=== PATIENT | female | born 1960 | race Caucasian/White ===

== ENCOUNTER 2016-09-13 13:09 | Day surgery (SDC) | payer OTHER ==
[2016-09-13] MEDS ORDERED: LACTATED RINGERS 1,000 ML IV SCH (13:50)
[2016-09-13 13:53] VITALS: RESP 16; TEMP 98
[2016-09-13] MEDS ORDERED: LIDOCAINE 1% 20 ML VIAL (10MG/ML) FOR IV START SQ ONE (14:00)
[2016-09-13] MEDS ORDERED: PROPOFOL 10 MG/ML 20 ML VIAL IV ONE (14:49)
[2016-09-13] MEDS ORDERED: GLYCOPYRROLATE 0.2 MG/ML 2 ML VIAL ONE (14:49)
--- NOTE | 2016-09-13 15:32 | P.PCN ---
Date of Procedure: 09/13/16 Preoperative Diagnosis: Postoperative Diagnosis: Procedure(s) Performed: Procedures: 1. Esophagogastroduodenoscopy and biopsy. 2. Colonoscopy and biopsy. Preoperative diagnosis: Dyspepsia and change in bowel habits. Postoperative diagnosis: 1. Small sliding hiatal hernia with no obvious esophagitis or complicated reflux disease. 2. Mild antral gastritis. 3. Normal colon and terminal ileum. 4. Multiple biopsies obtained from the duodenum, antrum, esophagus, terminal ileum and right colon. Preparation: HalfLytely prep. Sedation: Was provided by anesthesia. Brief clinical history: The patient is a 55-year-old female who was evaluated last month for symptoms of pain, diarrhea and bloating that has recurred around 6 months prior. The patient was first seen in September 2014 for abdominal pain, bloating and diarrhea and had some improvement with BRAT diet. She had an ultrasound and CT of the abdomen and had colonoscopy 2 years prior to that 2015 evaluation and had negative serology studies. This evaluation is to rule out peptic ulcer disease, complicated reflux disease, inflammatory bowel disease or neoplasia. Procedure: With the patient on her left lateral decubitus position and after informed consent and adequate sedation, I passed the Olympus-GIF 160 video upper endoscope through the cricopharyngeus down the esophagus. There was a very small sliding hiatal hernia. The esophagus did not show any erosions, ulcers, strictures or Hernández's esophagus. The endoscope was then passed into the stomach which was insufflated with air and inspected in detail including the retroflex view in the cardia. There was some mottling and erythema in the antrum but no ulcers or erosions. Pyloric channel, duodenal bulb, post bulbar area and descending duodenum appeared within normal limits I obtained biopsies from the duodenum, antrum and esophagus then the endoscope was withdrawn and I proceeded with the colonoscopy. Perianal area did not show any fissures or fistulas. There were no masses felt on digital rectal examination. The Olympus CFQ 160L video colonoscope was then inserted in the rectum in the usual fashion and advanced to the cecum. I intubated the ileocecal valve and examined the terminal ileum. Terminal ileum and colon appeared healthy. No polyps or tumors were seen or any obvious diverticular disease. I obtained biopsies from the terminal ileum and right colon than I retroflexed endoscope in the rectum before the endoscope was withdrawn. The patient tolerated the procedure well. Plan: The patient was reassured. Will await pathology results and make further plans accordingly. I would keep you updated on her progress. Implants: Indications for Procedure: Operative Findings: Description of Procedure:
[2016-09-13 15:54] VITALS: BP 141/80; PULSE 63
== END 2016-09-13 16:28 | disposition home or self-care (01) ==
LOC: ORWHC2ENDO 13:09
DX: K29.50 Unspecified chronic gastritis without bleeding (principal); K44.9 Diaphragmatic hernia without obstruction or gangrene; R19.4 Change in bowel habit; K58.9 Irritable bowel syndrome, unspecified; E07.9 Disorder of thyroid, unspecified; K21.9 Gastro-esophageal reflux disease without esophagitis; Z79.899 Other long term (current) drug therapy; Z88.2 Allergy status to sulfonamides; Z91.040 Latex allergy status
CPT/HCPCS: 88305; 88342; 45380; 43239; J2704

== ENCOUNTER → 2017-09-20 | Outpatient (CLI) | payer OTHER ==
--- NOTE | 2017-09-21 09:50 | MM ---
Reason for exam: screening (asymptomatic). Last mammogram was performed 2 years and 4 months ago. History: Patient is postmenopausal and is nulliparous. Family history of breast cancer in sister at age 30. Benign MG stereo VAD BX RT of the right breast, June 09, 2015. Physical Findings: A clinical breast exam by your physician is recommended on an annual basis and results should be correlated with mammographic findings. MG Screening Mammo w CAD Bilateral CC and MLO view(s) were taken. Prior study comparison: June 02, 2015, right breast MG 3d work up w/cad RT. May 26, 2015, bilateral MG screening mammo w CAD. The breast tissue is heterogeneously dense. This may lower the sensitivity of mammography. There are benign appearing round oval stable circumscribed left breast masses back to 2016. There are benign appearing left breast calcifications. No suspicious abnormality. Right biopsy marker noted. No significant changes when compared with prior studies. ASSESSMENT: Benign, BI-RAD 2 RECOMMENDATION: Routine screening mammogram of both breasts in 1 year.
== END | disposition home or self-care (01) ==
LOC: RADMAMWWP 10:16
PROVIDERS: ATTEND Internal Medicine
DX: Z12.31 Encounter for screening mammogram for malignant neoplasm of breast (principal)
CPT/HCPCS: 77067

== ENCOUNTER 2024-08-08 06:46 | Emergency (ER) | payer OTHER ==
--- NOTE | 2024-08-08 07:29 | ED ---
General Adult HPI - General Chief complaint: Abdominal Pain Stated complaint: abd pain Time Seen by Provider: 08/08/24 06:53 Source: patient, RN notes reviewed Mode of arrival: ambulatory - History of Present Illness Initial comments: 63-year-old female presents to the emergency department for evaluation of lower abdominal pain. Patient states that this has been ongoing since April. She has been to urgent care multiple times for this. She does state that she had an ultrasound performed 1 to 2 months ago and revealed some kind of ovarian mass. She states that she has been unable to follow-up for this due to insurance issues. She states that her pain has worsened over the past 1 to 2 weeks. She does note some constipation. She also notes urinary urgency. She denies any fever, chills. Endorses nausea with eating which is caused her appetite to be diminished. She reports a prior cholecystectomy no other abdominal surgeries. - Related Data Home Medications Medication Instructions Recorded Confirmed Famotidine [Pepcid] 40 mg PO BID 09/13/16 09/13/16 Levothyroxine Sodium [Levoxyl] 100 mcg PO DAILY 09/13/16 09/13/16 Sertraline [Zoloft] 50 mg PO DAILY 09/13/16 09/13/16 Allergies Allergy/AdvReac Type Severity Reaction Status Date / Time latex Allergy Rash/Hives Verified 08/08/24 06:52 Sulfa (Sulfonamide Allergy Rash/Hives Verified 08/08/24 06:52 Antibiotics) Review of Systems ROS Statement: Those systems with pertinent positive or pertinent negative responses have been documented in the HPI. ROS Other: All systems not noted in ROS Statement are negative. Past Medical History Past Medical History: Thyroid Disorder Additional Past Medical History / Comment(s): IRRITABLE BOWEL SYNDROME History of Any Multi-Drug Resistant Organisms: None Reported Additional Past Surgical History / Comment(s): CARPAL TUNNEL SURGERY, gallbladder removal Past Anesthesia/Blood Transfusion Reactions: Postoperative Nausea & Vomiting (PONV) Smoking Status: Never smoker Past Alcohol Use History: None Reported Past Drug Use History: None Reported - Past Family History Father History Unknown: Yes Family Medical History: Diabetes Mellitus, Renal Disease General Exam Limitations: no limitations General appearance: alert, in no apparent distress Head exam: Present: atraumatic, normocephalic, normal inspection Eye exam: Present: normal appearance, PERRL, EOMI. Absent: scleral icterus, conjunctival injection, periorbital swelling ENT exam: Present: normal exam, mucous membranes moist Neck exam: Present: normal inspection. Absent: tenderness, meningismus, lymphadenopathy Respiratory exam: Present: normal lung sounds bilaterally. Absent: respiratory distress, wheezes, rales, rhonchi, stridor Cardiovascular Exam: Present: regular rate, normal rhythm, normal heart sounds. Absent: systolic murmur, diastolic murmur, rubs, gallop, clicks GI/Abdominal exam: Present: soft, tenderness (Right lower), normal bowel sounds. Absent: distended, guarding, rebound, rigid Extremities exam: Present: normal inspection, full ROM, normal capillary refill. Absent: tenderness, pedal edema, joint swelling, calf tenderness Back exam: Present: normal inspection Neurological exam: Present: alert, oriented X3 Psychiatric exam: Present: normal affect, normal mood Skin exam: Present: warm, dry, intact, normal color. Absent: rash Course Vital Signs 08/08/24 08/08/24 08/08/24 06:47 07:52 09:22 Temperature 97.7 F Pulse Rate 95 80 84 Respiratory 18 16 18 Rate Blood Pressure 169/84 173/82 156/70 O2 Sat by Pulse 99 98 98 Oximetry 08/08/24 10:34 Temperature 97.9 F Pulse Rate 80 Respiratory 16 Rate Blood Pressure 161/72 O2 Sat by Pulse 96 Oximetry Medical Decision Making - Medical Decision Making Was pt. sent in by a medical professional or institution (, PA, COSMETIC COUNSELOR, urgent care, hospital, or correction...) When possible be specific @ -No Did you speak to anyone other than the patient for history (EMS, parent, family, police, friend...)? What history was obtained from this source @ -No Did you review nursing and triage notes (agree or disagree)? Why? @ -I reviewed and agree with nursing and triage notes Were old charts reviewed (outside hosp., previous admission, EMS record, old EKG, old radiological studies, urgent care reports/EKG's, correction records)? Report findings @ -No old charts were reviewed Differential Diagnosis (chest pain, altered mental status, abdominal pain women, abdominal pain men, vaginal bleeding, weakness, fever, dyspnea, syncope, headache, dizziness, GI bleed, back pain, seizure, CVA, palpatations, mental health, musculoskeletal)? @ -Differential Abdominal Pain Women: Appendicitis, Cholecystitis, diverticulosis, ischemic bowel, pancreatitis, hepatitis, UTI, gastroenteritis, AAA, incarcerated hernia, bowel obstruction, constipation, inflammatory bowel, hepatitis, peptic ulcer disease, splenic infarction, perforated viscus, vulvitis, ovarian torsion, PID, kidney stone, placenta abruption, this is not meant to be an all-inclusive list EKG interpreted by me (3pts min.). @ -None X-rays interpreted by me (1pt min.). @ -None done CT interpreted by me (1pt min.). @ -CT abdomen pelvis revealsFindings suspicious for uterine/cervical malignancy with adenopathy, bilateral hydronephrosis greater on the right U/S interpreted by me (1pt. min.). @ -None done What testing was considered but not performed or refused? (CT, X-rays, U/S, labs)? Why? @ -None What meds were considered but not given or refused? Why? @ -None Did you discuss the management of the patient with other professionals (professionals i.e. , PA, COSMETIC COUNSELOR, lab, RT, psych nurse, addiction social worker, competency evaluated nurse aide, teacher, mobile patrol officer, case repairer)? Give summary @ -No Was smoking cessation discussed for >3mins.? @ -No Was critical care preformed (if so, how long)? @ -No Were there social determinants of health that impacted care today? How? (Homelessness, low income, unemployed, alcoholism, drug addiction, transportation, low edu. Level, literacy, decrease access to med. care, fpc, rehab)? @ -No Was there de-escalation of care discussed even if they declined (Discuss DNR or withdrawal of care, Hospice)? DNR status @ -No What co-morbidities impacted this encounter? (DM, HTN, Smoking, COPD, CAD, Cancer, CVA, ARF, Chemo, Hep., AIDS, mental health diagnosis, sleep apnea, morbid obesity)? @ -None Was patient admitted / discharged? Hospital course, mention meds given and route, prescriptions, significant lab abnormalities, going to OR and other pertinent info. @ -Discharge. Patient presents emergency department for evaluation of abdominal pain. Patient states that she has been dealing with this for multiple months.Laboratory studies were obtained here which show mild leukocytosis at 14, hemoglobin 11.7; hyponatremia with a sodium of 132, patient was provided IV hydration in the emergency department. UA shows no evidence of infectious process. CT of the abdomen pelvis shows findings suspicious for uterine/cervical malignancy with adenopathy, bilateral hydronephrosis greater on the right. Patient was provided fluids and Toradol in the emergency department. She does report significant improvement in her pain following this. She will be discharged home. Advised strict follow-up with her primary care provider, gynecology, and oncology. She is understanding agreeable with this plan. Patient stable at time of discharge. Case discussed with Dr. Bender. Undiagnosed new problem with uncertain prognosis? @ -No Drug Therapy requiring intensive monitoring for toxicity (Heparin, Nitro, Insulin, Cardizem)? @ -No Were any procedures done? @ -No Diagnosis/symptom? @ -Pelvic mass, abdominal pain Acute, or Chronic, or Acute on Chronic? @ -Acute Uncomplicated (without systemic symptoms) or Complicated (systemic symptoms)? @ -Uncomplicated Side effects of treatment? @ -No Exacerbation, Progression, or Severe Exacerbation? @ -No Poses a threat to life or bodily function? How? (Chest pain, USA, IA, pneumonia, PE, COPD, DKA, ARF, appy, cholecystitis, CVA, Diverticulitis, Homicidal, Suicidal, threat to staff... and all critical care pts) @ -No - Lab Data Result diagrams: 08/08/24 08:02 08/08/24 08:02 Lab Results 08/08/24 08/08/24 08/08/24 Range/Units 08:02 08:02 08:02 WBC 14.51 H (4.50-10.00) 10*3/uL RBC 4.09 L (4.10-5.20) 10*6/uL Hgb 11.7 L (12.0-15.0) g/dL Hct 34.4 L (37.2-46.3) % MCV 84.1 (80.0-97.0) fL MCH 28.6 (27.0-32.0) pg MCHC 34.0 (32.0-37.0) g/dL Plt Count 391 (140-440) 10*3/uL MPV 9.2 L (9.5-12.2) fL Immature Gran % (Auto) 1.3 % Neutrophils % 78.8 % Lymphocytes % 12.9 % Monocytes % 5.4 % Eosinophils % 1.0 % Basophils % 0.6 % Immature Gran # 0.19 H (0.00-0.04) 10*3/uL Neutrophils # 11.45 H (1.80-7.70) 10*3/uL Lymphocytes # 1.87 (0.90-5.00) 10*3/uL Monocytes # 0.78 (0.20-1.00) 10*3/uL Eosinophils # 0.14 (0.04-0.35) 10*3/uL Basophils # 0.08 (0.00-0.10) 10*3/uL Sodium 132 L (137-145) mmol/L Potassium 4.4 (3.5-5.1) mmol/L Chloride 100 (98-107) mmol/L Carbon Dioxide 23 (22-30) mmol/L Anion Gap 9 mmol/L BUN 28 H (7-17) mg/dL Creatinine 0.75 (0.52-1.04) mg/dL Est GFR (CKD-EPI)AfAm >90 (>60 ml/min/1.73 sqM) Est GFR (CKD-EPI)NonAf 86 (>60 ml/min/1.73 sqM) Glucose 107 H (74-99) mg/dL Plasma Lactic Acid Sal 0.9 (0.7-2.0) mmol/L Calcium 9.6 (8.4-10.2) mg/dL Total Bilirubin 0.7 (0.2-1.3) mg/dL AST 52 H (14-36) U/L ALT 28 (4-34) U/L Alkaline Phosphatase 149 H (38-126) U/L Total Protein 7.4 (6.3-8.2) g/dL Albumin 3.8 (3.5-5.0) g/dL Amylase 49 (30-110) U/L Lipase 206 (23-300) U/L TSH 4.140 (0.465-4.680) mIU/L Urine Color Urine Appearance (Clear) Urine pH (5.0-8.0) Ur Specific [place] (1.001-1.035) Urine Protein (Negative) Urine Glucose (UA) (Negative) Urine Ketones (Negative) Urine Blood (Negative) Urine Nitrite (Negative) Urine Bilirubin (Negative) Urine Urobilinogen (<2.0) mg/dL Ur Leukocyte Esterase (Negative) 08/08/24 Range/Units 08:07 WBC (4.50-10.00) 10*3/uL RBC (4.10-5.20) 10*6/uL Hgb (12.0-15.0) g/dL Hct (37.2-46.3) % MCV (80.0-97.0) fL MCH (27.0-32.0) pg MCHC (32.0-37.0) g/dL Plt Count (140-440) 10*3/uL MPV (9.5-12.2) fL Immature Gran % (Auto) % Neutrophils % % Lymphocytes % % Monocytes % % Eosinophils % % Basophils % % Immature Gran # (0.00-0.04) 10*3/uL Neutrophils # (1.80-7.70) 10*3/uL Lymphocytes # (0.90-5.00) 10*3/uL Monocytes # (0.20-1.00) 10*3/uL Eosinophils # (0.04-0.35) 10*3/uL Basophils # (0.00-0.10) 10*3/uL Sodium (137-145) mmol/L Potassium (3.5-5.1) mmol/L Chloride (98-107) mmol/L Carbon Dioxide (22-30) mmol/L Anion Gap mmol/L BUN (7-17) mg/dL Creatinine (0.52-1.04) mg/dL Est GFR (CKD-EPI)AfAm (>60 ml/min/1.73 sqM) Est GFR (CKD-EPI)NonAf (>60 ml/min/1.73 sqM) Glucose (74-99) mg/dL Plasma Lactic Acid Sal (0.7-2.0) mmol/L Calcium (8.4-10.2) mg/dL Total Bilirubin (0.2-1.3) mg/dL AST (14-36) U/L ALT (4-34) U/L Alkaline Phosphatase (38-126) U/L Total Protein (6.3-8.2) g/dL Albumin (3.5-5.0) g/dL Amylase (30-110) U/L Lipase (23-300) U/L TSH (0.465-4.680) mIU/L Urine Color Colorless Urine Appearance Clear (Clear) Urine pH 5.0 (5.0-8.0) Ur Specific [place] 1.006 (1.001-1.035) Urine Protein Negative (Negative) Urine Glucose (UA) Negative (Negative) Urine Ketones Negative (Negative) Urine Blood Negative (Negative) Urine Nitrite Negative (Negative) Urine Bilirubin Negative (Negative) Urine Urobilinogen <2.0 (<2.0) mg/dL Ur Leukocyte Esterase Negative (Negative) Disposition Clinical Impression: Mass of uterine adnexa, Abdominal pain Disposition: HOME SELF-CARE Condition: Stable Instructions (If sedation given, give patient instructions): Abdominal Pain (ED) Additional Instructions: Please [facility] and your primary care provider. Return to the emergency department for new or worsening symptoms. Is patient prescribed a controlled substance at d/c from ED?: No Referrals: Jennifer Navas MD [Primary Care Provider] - 1-2 days Chucho Pineda MD [STAFF PHYSICIAN] - 1-2 days Chuy Alfredo [STAFF PHYSICIAN] - 1-2 days
[2024-08-08] MEDS: SODIUM CHLORIDE 0.9% 1,000 ML IV ONE (08:04)
[2024-08-08] MEDS: KETOROLAC 15 MG/ML 1 ML VIAL IVP STA (08:05)
[2024-08-08 08:16] LABS: Basophils # (A) 0.08 10*3/uL (0.00-0.10); Basophils % (A) 0.6 %; Eosinophils # (A) 0.14 10*3/uL (0.04-0.35); HCT 34.4 % (37.2-46.3); HGB 11.7 g/dL (12.0-15.0); Lymphocytes # (A) 1.87 10*3/uL (0.90-5.00); Lymphocytes % (A) 12.9 %; MCH 28.6 pg (27.0-32.0); MCV 84.1 fL (80.0-97.0); Mean Platelet Volume 9.2 fL (9.5-12.2); Monocytes # (A) 0.78 10*3/uL (0.20-1.00); Monocytes % (A) 5.4 %; Neutrophils # (A) 11.45 10*3/uL (1.80-7.70); Neutrophils % (A) 78.8 %; Platelet Count 391 10*3/uL (140-440); RBC 4.09 10*6/uL (4.10-5.20); RDW 13.5 % (11.5-14.5); WBC 14.51 10*3/uL (4.50-10.00)
[2024-08-08 08:20] LABS: Appearance,Urine Clear (Clear); Bilirubin,Urine Negative (Negative); Blood,Urine Negative (Negative); Color,Urine Colorless; Glucose,Urine (UA) Negative (Negative); Ketones,Urine Negative (Negative); Leukocyte Esterase,Urine Negative (Negative); Nitrite,Urine Negative (Negative); Protein,Urine Negative (Negative); Specific Gravity,Urine 1.006 (1.001-1.035); Urobilinogen,Urine <2.0 mg/dL (<2.0)
[2024-08-08 08:25] LABS: ALT 28 U/L (4-34); African American GFR (CKD) >90 (>60 ml/min/1.73 sqM); Amylase 49 U/L (30-110); Anion Gap 9 mmol/L; Blood Urea Nitrogen 28 mg/dL (7-17); Calcium 9.6 mg/dL (8.4-10.2); Carbon Dioxide 23 mmol/L (22-30); Chloride 100 mmol/L (98-107); Glucose 107 mg/dL (74-99); Lipase 206 U/L (23-300); Non-African American GFR(CKD) 86 (>60 ml/min/1.73 sqM); Sodium 132 mmol/L (137-145); Total Bilirubin 0.7 mg/dL (0.2-1.3)
[2024-08-08 08:32] LABS: AST 52 U/L (14-36); Albumin 3.8 g/dL (3.5-5.0); Alkaline Phosphatase 149 U/L (38-126); Potassium 4.4 mmol/L (3.5-5.1); Total Protein 7.4 g/dL (6.3-8.2)
--- NOTE | 2024-08-08 08:43 | CT ---
EXAMINATION TYPE: CT abdomen pelvis w con DATE OF EXAM: 08/08/2024 8:32 AM COMPARISON: None. CLINICAL INDICATION: Female, 63 years old with history of abdominal pain, Abdominal pain, generalized since April TECHNIQUE:CT scan of the abdomen and pelvis is performed without Oral Contrast and with IV Contrast, patient injected with 100 ml mL of Isovue 300. CT DLP: 887.3 mGycm, Automated exposure control for dose reduction was used. FINDINGS: LUNG BASES-: left lower lobe pulmonary nodule measuring 1.2 cm. Metastatic disease is not excluded. C T of the chest recommended which can be performed on an outpatient basis. No infiltrate. LIVER/GB: The gallbladder is surgically absent. No space occupying hepatic lesion. Biliary tree is of normal caliber. PANCREAS: No inflammation. No distinct mass. SPLEEN: No splenic enlargement. No lesion seen. ADRENALS: No nodule. No thickening. KIDNEYS/BLADDER: There is bilateral hydronephrosis right greater than left felt to be secondary to pe lvic mass. No nephrolithiasis. No distinct renal mass. Urinary bladder grossly unremarkable. BOWEL: Normal appendix. Normal bowel caliber. No inflammation. GENITAL ORGANS: Enlarged and lobulated uterus with infiltrative type appearing mass suspicious for un derlying malignancy. Extension into the cervix. Poor visualization of the ovaries. LYMPH NODES: Left periaortic conglomerate adenopathy measuring 5.9 x 2.7 cm with additional adjacent enlarged lymph nodes seen. Bilateral iliac chain adenopathy measuring 2.7 cm on the left in 3.5 cm on the right. AORTA: No significant abnormality. OSSEOUS STRUCTURES: Multilevel severe degenerative disc disease. Grade 1 anterolisthesis L5 on S1. OTHER: No significant additional abnormality is seen. IMPRESSION: 1. Findings are suspicious for uterine/cervical malignancy with adenopathy as discussed as well as a pulmonary nodule at the left lung base. There is a bilateral hydronephrosis seen right greater than l eft mild in degree. [facility], , 08/08/2024 8:41 AM
[2024-08-08 10:34] VITALS: BP 161/72; PULSE 80; RESP 16; TEMP 97.9
== END 2024-08-08 10:40 | disposition home or self-care (01) ==
LOC: EC 06:46
DX: R22.9 Localized swelling, mass and lump, unspecified (principal); R10.31 Right lower quadrant pain; Z88.2 Allergy status to sulfonamides; Z91.040 Latex allergy status
CPT/HCPCS: 36415; 80053; 84443; 82150; 83605; 83690; 85025; 81003; 74177; 99284; 96374; 96361 ×2; J1885; Q9967

== ENCOUNTER 2024-08-15 12:31 | Emergency (ER) | payer OTHER ==
--- NOTE | 2024-08-15 14:22 | ED ---
Abdominal Pain HPI - General Chief Complaint: Abdominal Pain Stated Complaint: abd pain Time Seen by Provider: 08/15/24 14:20 Source: patient, RN notes reviewed, old records reviewed Mode of arrival: ambulatory Limitations: no limitations - History of Present Illness Initial Comments: 63-year-old female presenting to the ER for evaluation of abdominal pain. Patient states since April she has been having lower abdominal pain. Patient was seen here on 08 [address] abdomen pelvis completed showing findings suspicious of uterine/cervical malignancy with adenopathy. Patient was instructed to follow-up with oncology, [employer] and PCP outpatient. She states she is scheduled to see Dr. Pineda on 08/21/24. Patient has been taking [id number] ibuprofen without relief of pain. She is also been using a heating pad without relief of discomfort. She states the pain is a 7 out of 10 cramping discomfort it is worse with wearing pants and pressure like a seatbelt across her lower abdomen. Patient does admit to approximately 10 pound unintentional weight loss since April along with night sweats. She denies any fevers, nausea, vomiting. Patient seeking pain control. No new complaints from prior. - Related Data Home Medications Medication Instructions Recorded Confirmed Famotidine [Pepcid] 40 mg PO BID 09/13/16 09/13/16 Levothyroxine Sodium [Levoxyl] 100 mcg PO DAILY 09/13/16 09/13/16 Sertraline [Zoloft] 50 mg PO DAILY 09/13/16 09/13/16 Previous Rx's Medication Instructions Recorded HYDROcodone/APAP 5-325MG [[place] 5] 1 each PO Q6HR PRN #12 tab 08/15/24 Ketorolac [Toradol] 10 mg PO Q8HR #15 tab 08/15/24 Ondansetron Odt [Zofran Odt] 4 mg PO Q8HR PRN #10 tab 08/15/24 Allergies Allergy/AdvReac Type Severity Reaction Status Date / Time latex Allergy Rash/Hives Verified 08/15/24 12:41 Sulfa (Sulfonamide Allergy Rash/Hives Verified 08/15/24 12:41 Antibiotics) tramadol Allergy Rash/Hives Verified 08/15/24 12:41 Review of Systems ROS Statement: Those systems with pertinent positive or pertinent negative responses have been documented in the HPI. ROS Other: All systems not noted in ROS Statement are negative. Past Medical History Past Medical History: Thyroid Disorder Additional Past Medical History / Comment(s): IRRITABLE BOWEL SYNDROME History of Any Multi-Drug Resistant Organisms: None Reported Additional Past Surgical History / Comment(s): CARPAL TUNNEL SURGERY, gallbladder removal Past Anesthesia/Blood Transfusion Reactions: Postoperative Nausea & Vomiting (PONV) Past Psychological History: No Psychological Hx Reported Smoking Status: Never smoker Past Alcohol Use History: None Reported Past Drug Use History: None Reported - Past Family History Father History Unknown: Yes Family Medical History: Diabetes Mellitus, Renal Disease General Exam Limitations: no limitations General appearance: alert, in no apparent distress Respiratory exam: Present: normal lung sounds bilaterally. Absent: respiratory distress, wheezes, rales, rhonchi, stridor Cardiovascular Exam: Present: regular rate, normal rhythm, normal heart sounds. Absent: systolic murmur, diastolic murmur, rubs, gallop, clicks GI/Abdominal exam: Present: soft, tenderness (Lower abdomen), normal bowel sounds Neurological exam: Present: alert, oriented X3, CN II-XII intact Skin exam: Present: warm, dry, intact, normal color. Absent: rash Course Vital Signs 08/15/24 12:38 Temperature 97.8 F Pulse Rate 99 Respiratory 20 Rate Blood Pressure 148/84 O2 Sat by Pulse 99 Oximetry - Reevaluation(s) Reevaluation #1: 08/15/24 15:53 Patient reevaluated. No signs of acute distress. Patient reporting improvement of pain. Given CELESTINE, admission was offered to patient who refused stating she would like to be discharged as she has cats at home to care for. Medical Decision Making - Medical Decision Making Was pt. sent in by a medical professional or institution (, PA, ARTIFICIAL STONE SETTER, urgent care, hospital, or penitentiary...) When possible be specific @ -[No] Did you speak to anyone other than the patient for history (EMS, parent, family, police, friend...)? What history was obtained from this source @ -[No] Did you review nursing and triage notes (agree or disagree)? Why? @ -[I reviewed and agree with nursing and triage notes] Were old charts reviewed (outside hosp., previous admission, EMS record, old EKG, old radiological studies, urgent care reports/EKG's, penitentiary records)? Report findings @ -Yes, I reviewed ER visit, laboratory studies and CT abdomen pelvis from [address] findings concerning of uterine/cervical malignancy. Patient instructed to follow-up outpatient with oncology, [employer] and PCP. Differential Diagnosis (chest pain, altered mental status, abdominal pain women, abdominal pain men, vaginal bleeding, weakness, fever, dyspnea, syncope, headache, dizziness, GI bleed, back pain, seizure, CVA, palpatations, mental health, musculoskeletal)? @ -Differential Abdominal Pain Women:Appendicitis, Cholecystitis, diverticulosis, ischemic bowel, pancreatitis, hepatitis, UTI, gastroenteritis, AAA, incarcerated hernia, bowel obstruction, constipation, inflammatory bowel, hepatitis, peptic ulcer disease, splenic infarction, perforated viscus, vulvitis, ovarian torsion, PID, kidney stone, placenta abruption, this is not meant to be an all-inclusive list EKG interpreted by me (3pts min.). @ -[None done] X-rays interpreted by me (1pt min.). @ -[None done] CT interpreted by me (1pt min.). @ -[None done] U/S interpreted by me (1pt. min.). @ -[None done] What testing was considered but not performed or refused? (CT, X-rays, U/S, labs)? Why? @ -[None] What meds were considered but not given or refused? Why? @ -[None] Did you discuss the management of the patient with other professionals (professionals i.e. , PA, ARTIFICIAL STONE SETTER, lab, RT, psych nurse, social insurance adviser, fruit loader machine operator, teacher, neighborhood conservation officer, supportive employment case manager)? Give summary @ -[No] Was smoking cessation discussed for >3mins.? @ -[No] Was critical care preformed (if so, how long)? @ -[No] Were there social determinants of health that impacted care today? How? (Homelessness, low income, unemployed, alcoholism, drug addiction, transportation, low edu. Level, literacy, decrease access to med. care, alf, rehab)? @ -[No] Was there de-escalation of care discussed even if they declined (Discuss DNR or withdrawal of care, Hospice)? DNR status @ -[No] What co-morbidities impacted this encounter? (DM, HTN, Smoking, COPD, CAD, Cancer, CVA, ARF, Chemo, Hep., AIDS, mental health diagnosis, sleep apnea, morbid obesity)? @ -[None] Was patient admitted / discharged? Hospital course, mention meds given and route, prescriptions, significant lab abnormalities, going to OR and other pertinent info. @ -[hospital course] Undiagnosed new problem with uncertain prognosis? @ -[No] Drug Therapy requiring intensive monitoring for toxicity (Heparin, Nitro, Insulin, Cardizem)? @ -[No] Were any procedures done? @ -[No] Diagnosis/symptom? @ -[default] Acute, or Chronic, or Acute on Chronic? @ -[default] Uncomplicated (without systemic symptoms) or Complicated (systemic symptoms)? @ -[default] Side effects of treatment? @ -[No] Exacerbation, Progression, or Severe Exacerbation? @ -[No] Poses a threat to life or bodily function? How? (Chest pain, [place], [place], pneumonia, PE, COPD, DKA, ARF, appy, cholecystitis, CVA, Diverticulitis, Homicidal, Suicidal, threat to staff... and all critical care pts) @ -[No] - Lab Data Result diagrams: 08/15/24 14:39 08/15/24 14:39 Lab Results 08/15/24 08/15/24 Range/Units 14:39 14:39 WBC 13.47 H (4.50-10.00) 10*3/uL RBC 3.93 L (4.10-5.20) 10*6/uL Hgb 11.5 L (12.0-15.0) g/dL Hct 33.2 L (37.2-46.3) % MCV 84.5 (80.0-97.0) fL MCH 29.3 (27.0-32.0) pg MCHC 34.6 (32.0-37.0) g/dL MPV 9.2 L (9.5-12.2) fL Immature Gran % (Auto) 1.0 % Immature Gran # 0.13 H (0.00-0.04) 10*3/uL Immature Plt Fraction 0.9 L (1.1-6.1) % Sodium 137 (137-145) mmol/L Potassium 4.2 (3.5-5.1) mmol/L Chloride 104 (98-107) mmol/L Carbon Dioxide 19 L (22-30) mmol/L Anion Gap 14 mmol/L BUN 41 H (7-17) mg/dL Creatinine 1.24 H (0.52-1.04) mg/dL Est GFR (CKD-EPI)AfAm 54 (>60 ml/min/1.73 sqM) Est GFR (CKD-EPI)NonAf 47 (>60 ml/min/1.73 sqM) Glucose 92 (74-99) mg/dL Calcium 9.6 (8.4-10.2) mg/dL Total Bilirubin 0.5 (0.2-1.3) mg/dL AST 45 H (14-36) U/L ALT 27 (4-34) U/L Alkaline Phosphatase 138 H (38-126) U/L Total Protein 7.4 (6.3-8.2) g/dL Albumin 3.8 (3.5-5.0) g/dL Disposition Clinical Impression: Abdominal pain Disposition: HOME SELF-CARE Condition: Stable Instructions (If sedation given, give patient instructions): Abdominal Pain (ED) Additional Instructions: You may take Zofran every 8 hours as needed for nausea. Take Toradol as needed for pain control along with [id number] Tylenol. You have been prescribed [place] 5s for extreme pain control. Do not take [id number]-bmf-[id number] Tylenol while taking [place]'s. Be aware this medication may make you drowsy and do not operate heavy machinery while taking this medication. Follow-up closely with [employer] as scheduled on Tuesday. Return to the ER for any new or worsening concerns. Prescriptions: HYDROcodone/APAP 5-325MG [[place] 5] 1 each PO Q6HR PRN #12 tab PRN Reason: Pain Ketorolac [Toradol] 10 mg PO Q8HR #15 tab Ondansetron Odt [Zofran Odt] 4 mg PO Q8HR PRN #10 tab PRN Reason: Nausea Is patient prescribed a controlled substance at d/c from ED?: Yes When asked, does pt state using other controlled substances?: No If prescribed controlled substance>3 days was MAPS reviewed?: Prescribed <3 Days If opioid is for acute pain is fill amount 7 days or less?: Yes If Rx opioid, was Start Talking consent form obtained?: Yes Referrals: Jennifer Navas MD [Primary Care Provider] - 1-2 days Chuy Alfredo [STAFF PHYSICIAN] - 1-2 days Chucho Pineda MD [STAFF PHYSICIAN] - 1-2 days Time of Disposition: 15:55
[2024-08-15] MEDS: HYDROmorphone 0.5 MG/0.5 ML SYRINGE IVP STA (14:40)
[2024-08-15] MEDS: KETOROLAC 15 MG/ML 1 ML VIAL IVP STA (14:40)
[2024-08-15] MEDS: ONDANSETRON 4 MG/2 ML VIAL IVP STA (14:40)
[2024-08-15 15:05] LABS: ALT 27 U/L (4-34); African American GFR (CKD) 54 (>60 ml/min/1.73 sqM); Albumin 3.8 g/dL (3.5-5.0); Anion Gap 14 mmol/L; Blood Urea Nitrogen 41 mg/dL (7-17); Calcium 9.6 mg/dL (8.4-10.2); Carbon Dioxide 19 mmol/L (22-30); Chloride 104 mmol/L (98-107); Glucose 92 mg/dL (74-99); Non-African American GFR(CKD) 47 (>60 ml/min/1.73 sqM); Sodium 137 mmol/L (137-145); Total Bilirubin 0.5 mg/dL (0.2-1.3); Total Protein 7.4 g/dL (6.3-8.2)
[2024-08-15 15:16] LABS: AST 45 U/L (14-36); Alkaline Phosphatase 138 U/L (38-126); Potassium 4.2 mmol/L (3.5-5.1)
[2024-08-15 15:21] LABS: Basophils # (A) 0.09 10*3/uL (0.00-0.10); Basophils % (A) 0.7 %; Eosinophils # (A) 0.21 10*3/uL (0.04-0.35); Eosinophils % (A) 1.6 %; HCT 33.2 % (37.2-46.3); HGB 11.5 g/dL (12.0-15.0); Immature Platelet Fraction 0.9 % (1.1-6.1); Lymphocytes # (A) 1.87 10*3/uL (0.90-5.00); Lymphocytes % (A) 13.9 %; MCH 29.3 pg (27.0-32.0); MCHC 34.6 g/dL (32.0-37.0); MCV 84.5 fL (80.0-97.0); Mean Platelet Volume 9.2 fL (9.5-12.2); Monocytes # (A) 0.77 10*3/uL (0.20-1.00); Monocytes % (A) 5.7 %; Neutrophils % (A) 77.1 %; Platelet Count 352 10*3/uL (140-440); RBC 3.93 10*6/uL (4.10-5.20); RDW 13.8 % (11.5-14.5); WBC 13.47 10*3/uL (4.50-10.00)
[2024-08-15] MEDS: SODIUM CHLORIDE 0.9% 1,000 ML IV ONE (15:35)
[2024-08-15 16:12] VITALS: BP 146/67; PULSE 70; RESP 18; TEMP 97.6
== END 2024-08-15 16:37 | disposition home or self-care (01) ==
LOC: EC 12:31
DX: R10.30 Lower abdominal pain, unspecified (principal); Z88.2 Allergy status to sulfonamides; Z88.5 Allergy status to narcotic agent; Z91.040 Latex allergy status
CPT/HCPCS: 99284; 36415; 80053; 85025; 96374; 96375 ×2; 96361; J2405; J1885; J1171

== ENCOUNTER 2024-08-20 16:28 | Inpatient (IN) | payer OTHER ==
--- NOTE | 2024-08-20 17:16 | ED ---
Recheck HPI - General Chief Complaint: Abdominal Pain Stated Complaint: abdominal pain Time Seen by Provider: 08/20/24 17:15 Source: patient, RN notes reviewed, old records reviewed Mode of arrival: ambulatory Limitations: no limitations - History of Present Illness Initial Comments: This is a 63-year-old female to the ER for evaluation she presents for reevaluation of abdominal pain recent diagnosis of concern for uterine cancer. Patient has been in the ER a few times now for pain and uncontrolled pain in that while she presents today. She states she is not having good mild bowel movement since being started on pain medication feels like her urine and urinary ability is also incomplete. She is without fever or other change MD Complaint: other (Recurrent abdominal pain) -: days(s) Returns Today for: persistent/worsening pain related to initial visit Symptoms Since Prior Visit: worsening pain Associated Symptoms: none Treatments Prior to Arrival: Given Pain Meds on - Related Data Home Medications Medication Instructions Recorded Confirmed Levothyroxine Sodium [Levoxyl] 100 mcg PO DAILY 09/13/16 08/21/24 Sertraline [Zoloft] 50 mg PO DAILY 09/13/16 08/21/24 Multivitamins, Thera [Multivitamin 1 tab PO DAILY 08/21/24 08/21/24 (formulary)] Previous Rx's Medication Instructions Recorded Ketorolac [Toradol] 10 mg PO Q8HR #15 tab 08/15/24 Ondansetron Odt [Zofran ODT] 4 mg PO Q8HR PRN #10 tab 08/15/24 Docusate [Colace] 100 mg PO BID #60 cap 08/27/24 Lactulose [Cephulac] 20 gm PO BID PRN #360 ml 08/27/24 Losartan [Cozaar] 50 mg PO DAILY #30 tab 08/27/24 Morphine Sulfate ER [Ms Contin] 15 mg PO Q12HR tab 08/27/24 amLODIPine [Norvasc] 10 mg PO DAILY #30 tab 08/27/24 bisacodyL [Dulcolax] 10 mg RECTAL DAILY #30 suppositor 08/27/24 Allergies Allergy/AdvReac Type Severity Reaction Status Date / Time latex Allergy Rash/Hives Verified 08/21/24 08:01 Sulfa (Sulfonamide Allergy Rash/Hives Verified 08/21/24 08:01 Antibiotics) tramadol Allergy Rash/Hives Verified 08/21/24 08:01 hydromorphone [From Dilaudid] AdvReac Nausea & Verified 08/21/24 08:01 Vomiting Review of Systems ROS Statement: Those systems with pertinent positive or pertinent negative responses have been documented in the HPI. ROS Other: All systems not noted in ROS Statement are negative. Past Medical History Past Medical History: Thyroid Disorder Additional Past Medical History / Comment(s): IRRITABLE BOWEL SYNDROME History of Any Multi-Drug Resistant Organisms: None Reported Additional Past Surgical History / Comment(s): CARPAL TUNNEL SURGERY, gallbladder removal Past Anesthesia/Blood Transfusion Reactions: Postoperative Nausea & Vomiting (PONV) Past Psychological History: No Psychological Hx Reported Smoking Status: Never smoker Past Alcohol Use History: None Reported Past Drug Use History: None Reported - Past Family History Father History Unknown: Yes Family Medical History: Diabetes Mellitus, Renal Disease Mother Family Medical History: CVA/TIA General Exam Limitations: no limitations General appearance: alert, in no apparent distress Head exam: Present: atraumatic, normocephalic, normal inspection Eye exam: Present: normal appearance, PERRL, EOMI. Absent: scleral icterus, conjunctival injection, periorbital swelling ENT exam: Present: normal exam, mucous membranes moist Neck exam: Present: normal inspection. Absent: tenderness, meningismus, lymphadenopathy Respiratory exam: Present: normal lung sounds bilaterally. Absent: respiratory distress, wheezes, rales, rhonchi, stridor Cardiovascular Exam: Present: regular rate, normal rhythm, normal heart sounds. Absent: systolic murmur, diastolic murmur, rubs, gallop, clicks GI/Abdominal exam: Present: soft, normal bowel sounds. Absent: distended, tenderness, guarding, rebound, rigid Extremities exam: Present: normal inspection, full ROM, normal capillary refill. Absent: tenderness, pedal edema, joint swelling, calf tenderness Back exam: Present: normal inspection Neurological exam: Present: alert, oriented X3, CN II-XII intact Psychiatric exam: Present: normal affect, normal mood Skin exam: Present: warm, dry, intact, normal color. Absent: rash Course Vital Signs 08/20/24 08/20/24 08/20/24 16:40 19:43 22:42 Temperature 98.8 F 97.7 F Pulse Rate 93 78 71 Respiratory 18 18 17 Rate Blood Pressure 154/84 158/82 187/77 O2 Sat by Pulse 94 L 95 97 Oximetry 08/21/24 00:41 Temperature Pulse Rate 71 Respiratory 17 Rate Blood Pressure 172/74 O2 Sat by Pulse 98 Oximetry - Reevaluation(s) Reevaluation #1: 08/20/24 18:26 Medical records reviewed Reevaluation #2: Pain is difficult to control here in the ER Reevaluation #3: Patient informed of results and questions answered Reevaluation #4: Was pt. sent in by a medical professional or institution (JOSEPHNIE Choe, CARPET INSPECTOR, urgent care, hospital, or long-term...) When possible be specific @ -no Did you speak to anyone other than the patient for history (EMS, parent, family, police, friend...)? What history was obtained from this source @ -no Did you review nursing and triage notes (agree or disagree)? Why? @ -agree Are old charts reviewed (outside hosp., previous admission, EMS record, old EKG, old radiological studies, urgent care reports/EKG's, long-term records)? Report findings @ -yes Differential Diagnosis (chest pain, altered mental status, abdominal pain women, abdominal pain men, vaginal bleeding, weakness, fever, dyspnea, syncope, headache, dizziness, GI bleed, back pain, seizure, CVA, palpatations, mental health, musculoskeletal)? @ -prior EKG interpreted by me (3pts min.). @ -yes X-rays interpreted by me (1pt min.). @ -no CT interpreted by me (1pt min.). @ -Yes worsening aggressive cancer U/S interpreted by me (1pt. min.). @ -no What testing was considered but not performed or refused? (CT, X-rays, U/S, labs)? Why? @ -none What meds were considered but not given or refused? Why? @ -none Did you discuss the management of the patient with other professionals (professionals i.e. JOSEPHINE Choe, CARPET INSPECTOR, lab, RT, psych nurse, social media marketing analyst, corporate lawyer, teacher, systems support officer, case packer and sealer)? Give summary @ -no Was smoking cessation discussed for >3mins.? @ -no Was critical care preformed (if so, how long)? @ -no Were there social determinants of health that impacted care today? How? (Homelessness, low income, unemployed, alcoholism, drug addiction, transportation, low edu. Level, literacy, decrease access to med. care, retirement, rehab)? @ -none Was there de-escalation of care discussed even if they declined (Discuss DNR or withdrawal of care, Hospice)? DNR status @ -no What co-morbidities impacted this encounter? (DM, HTN, Smoking, COPD, CAD, Cancer, CVA, ARF, Chemo, Hep., AIDS, mental health diagnosis, sleep apnea, morbid obesity)? @ -none Was patient admitted / discharged? Hospital course, mention meds given and route, prescriptions, significant lab abnormalities, going to OR and other pertinent info. @ - 63 female to ER for evaluation abdominal pain severe abdominal pain with constipation. Patient's pain is severe here in the ER will admit for symptom management, cancer pain Admitted Undiagnosed new problem with uncertain prognosis? @ -no Drug Therapy requiring intensive monitoring for toxicity (Heparin, Nitro, Insulin, Cardizem)? @ -no Were any procedures done? @ -no Diagnosis/symptom? @ -Cancer pain under control abdominal pain Acute, or Chronic, or Acute on Chronic? @ -Acute Uncomplicated (without systemic symptoms) or Complicated (systemic symptoms)? @ -Complicated Side effects of treatment? @ -no Exacerbation, Progression, or Severe Exacerbation? @ -exacerbation Poses a threat to life or bodily function? How? (Chest pain, [place], [place], pneumonia, PE, COPD, DKA, ARF, appy, cholecystitis, CVA, Diverticulitis, Homicidal, Suicidal, threat to staff... and all critical care pts) @ -yes significantly aggressive CA Reevaluation #5: 08/20/24 18:26 Differential Abdominal Pain Women: Appendicitis, Cholecystitis, diverticulosis, ischemic bowel, pancreatitis, hepatitis, UTI, gastroenteritis, AAA, incarcerated hernia, bowel obstruction, constipation, inflammatory bowel, hepatitis, peptic ulcer disease, splenic infarction, perforated viscus, vulvitis, ovarian torsion, PID, kidney stone, placenta abruption, this is not meant to be an all-inclusive list - Consultations Consultation #1: Spoke with [facility] who agrees to admit this patient Medical Decision Making - Medical Decision Making 63 female to ER for evaluation abdominal pain severe abdominal pain with constipation. Patient's pain is severe here in the ER will admit for symptom ma nagement, cancer pain - Lab Data Result diagrams: 08/27/24 04:38 08/27/24 04:38 Lab Results 08/20/24 08/20/24 08/20/24 Range/Units 17:50 17:50 17:50 WBC 14.55 H (4.50-10.00) 10*3/uL RBC 3.82 L (4.10-5.20) 10*6/uL Hgb 11.1 L (12.0-15.0) g/dL Hct 31.7 L (37.2-46.3) % MCV 83.0 (80.0-97.0) fL MCH 29.1 (27.0-32.0) pg MCHC 35.0 (32.0-37.0) g/dL Plt Count 353 (140-440) 10*3/uL MPV 8.7 L (9.5-12.2) fL Immature Gran % (Auto) 1.2 % Neutrophils % 78.2 % Lymphocytes % 13.1 % Monocytes % 6.2 % Eosinophils % 0.8 % Basophils % 0.5 % Immature Gran # 0.17 H (0.00-0.04) 10*3/uL Neutrophils # 11.39 H (1.80-7.70) 10*3/uL Lymphocytes # 1.91 (0.90-5.00) 10*3/uL Monocytes # 0.90 (0.20-1.00) 10*3/uL Eosinophils # 0.11 (0.04-0.35) 10*3/uL Basophils # 0.07 (0.00-0.10) 10*3/uL PT 10.3 (10.0-12.5) sec INR 0.9 (<1.2) APTT 24.5 (22.0-30.0) sec Sodium 134 L (137-145) mmol/L Potassium 3.9 (3.5-5.1) mmol/L Chloride 97 L (98-107) mmol/L Carbon Dioxide 26 (22-30) mmol/L Anion Gap 11 mmol/L BUN 19 H (7-17) mg/dL Creatinine 1.15 H (0.52-1.04) mg/dL Est GFR (CKD-EPI)AfAm 59 (>60 ml/min/1.73 sqM) Est GFR (CKD-EPI)NonAf 52 (>60 ml/min/1.73 sqM) Glucose 94 (74-99) mg/dL Plasma Lactic Acid Sal (0.7-2.0) mmol/L Calcium 9.8 (8.4-10.2) mg/dL Total Bilirubin 0.5 (0.2-1.3) mg/dL AST 100 H (14-36) U/L ALT 68 H (4-34) U/L Alkaline Phosphatase 180 H (38-126) U/L Total Protein 7.4 (6.3-8.2) g/dL Albumin 4.0 (3.5-5.0) g/dL Amylase 43 (30-110) U/L Lipase 167 (23-300) U/L CA 125 Antigen (0.0-30.1) U/mL Urine Color Urine Appearance (Clear) Urine pH (5.0-8.0) Ur Specific [place] (1.001-1.035) Urine Protein (Negative) Urine Glucose (UA) (Negative) Urine Ketones (Negative) Urine Blood (Negative) Urine Nitrite (Negative) Urine Bilirubin (Negative) Urine Urobilinogen (<2.0) mg/dL Ur Leukocyte Esterase (Negative) 08/20/24 08/20/24 08/20/24 Range/Units 17:50 17:50 18:06 WBC (4.50-10.00) 10*3/uL RBC (4.10-5.20) 10*6/uL Hgb (12.0-15.0) g/dL Hct (37.2-46.3) % MCV (80.0-97.0) fL MCH (27.0-32.0) pg MCHC (32.0-37.0) g/dL Plt Count (140-440) 10*3/uL MPV (9.5-12.2) fL Immature Gran % (Auto) % Neutrophils % % Lymphocytes % % Monocytes % % Eosinophils % % Basophils % % Immature Gran # (0.00-0.04) 10*3/uL Neutrophils # (1.80-7.70) 10*3/uL Lymphocytes # (0.90-5.00) 10*3/uL Monocytes # (0.20-1.00) 10*3/uL Eosinophils # (0.04-0.35) 10*3/uL Basophils # (0.00-0.10) 10*3/uL PT (10.0-12.5) sec INR (<1.2) APTT (22.0-30.0) sec Sodium (137-145) mmol/L Potassium (3.5-5.1) mmol/L Chloride (98-107) mmol/L Carbon Dioxide (22-30) mmol/L Anion Gap mmol/L BUN (7-17) mg/dL Creatinine (0.52-1.04) mg/dL Est GFR (CKD-EPI)AfAm (>60 ml/min/1.73 sqM) Est GFR (CKD-EPI)NonAf (>60 ml/min/1.73 sqM) Glucose (74-99) mg/dL Plasma Lactic Acid Sal 0.9 (0.7-2.0) mmol/L Calcium (8.4-10.2) mg/dL Total Bilirubin (0.2-1.3) mg/dL AST (14-36) U/L ALT (4-34) U/L Alkaline Phosphatase (38-126) U/L Total Protein (6.3-8.2) g/dL Albumin (3.5-5.0) g/dL Amylase (30-110) U/L Lipase (23-300) U/L CA 125 Antigen 39.6 H (0.0-30.1) U/mL Urine Color Light Yellow Urine Appearance Clear (Clear) Urine pH 5.0 (5.0-8.0) Ur Specific [place] 1.011 (1.001-1.035) Urine Protein Negative (Negative) Urine Glucose (UA) Negative (Negative) Urine Ketones Negative (Negative) Urine Blood Negative (Negative) Urine Nitrite Negative (Negative) Urine Bilirubin Negative (Negative) Urine Urobilinogen <2.0 (<2.0) mg/dL Ur Leukocyte Esterase Negative (Negative) - Radiology Data Radiology results: report reviewed (CT abdomen pelvis worsening signs of aggressive cancer), image reviewed Disposition Clinical Impression: Abdominal pain, Abdominal colic, Constipation, Cancer associated pain Disposition: ADMITTED IP TO THIS [facility] Condition: Fair Is patient prescribed a controlled substance at d/c from ED?: No Time of Disposition: 22:00
[2024-08-20 17:58] LABS: Basophils # (A) 0.07 10*3/uL (0.00-0.10); Basophils % (A) 0.5 %; Eosinophils # (A) 0.11 10*3/uL (0.04-0.35); Eosinophils % (A) 0.8 %; HCT 31.7 % (37.2-46.3); HGB 11.1 g/dL (12.0-15.0); Lymphocytes # (A) 1.91 10*3/uL (0.90-5.00); Lymphocytes % (A) 13.1 %; MCH 29.1 pg (27.0-32.0); Mean Platelet Volume 8.7 fL (9.5-12.2); Monocytes % (A) 6.2 %; Neutrophils # (A) 11.39 10*3/uL (1.80-7.70); Neutrophils % (A) 78.2 %; Platelet Count 353 10*3/uL (140-440); RBC 3.82 10*6/uL (4.10-5.20); RDW 13.7 % (11.5-14.5); WBC 14.55 10*3/uL (4.50-10.00)
[2024-08-20] MEDS: ONDANSETRON 4 MG/2 ML VIAL IVP STA (18:01)
[2024-08-20] MEDS: SODIUM CHLORIDE 0.9% 1,000 ML IV ONE (18:01)
[2024-08-20] MEDS: HYDROmorphone 0.5 MG/0.5 ML SYRINGE IVP STA (18:03)
[2024-08-20 18:07] LABS: INR 0.9 (<1.2); Partial Thromboplastin Time 24.5 sec (22.0-30.0); Prothrombin Time 10.3 sec (10.0-12.5)
[2024-08-20 18:11] LABS: ALT 68 U/L (4-34); AST 100 U/L (14-36); African American GFR (CKD) 59 (>60 ml/min/1.73 sqM); Alkaline Phosphatase 180 U/L (38-126); Amylase 43 U/L (30-110); Anion Gap 11 mmol/L; Blood Urea Nitrogen 19 mg/dL (7-17); Calcium 9.8 mg/dL (8.4-10.2); Carbon Dioxide 26 mmol/L (22-30); Chloride 97 mmol/L (98-107); Glucose 94 mg/dL (74-99); Lipase 167 U/L (23-300); Non-African American GFR(CKD) 52 (>60 ml/min/1.73 sqM); Potassium 3.9 mmol/L (3.5-5.1); Sodium 134 mmol/L (137-145); Total Bilirubin 0.5 mg/dL (0.2-1.3); Total Protein 7.4 g/dL (6.3-8.2)
[2024-08-20 18:21] LABS: Appearance,Urine Clear (Clear); Bilirubin,Urine Negative (Negative); Blood,Urine Negative (Negative); Color,Urine Light Yellow; Glucose,Urine (UA) Negative (Negative); Ketones,Urine Negative (Negative); Leukocyte Esterase,Urine Negative (Negative); Nitrite,Urine Negative (Negative); Protein,Urine Negative (Negative); Specific Gravity,Urine 1.011 (1.001-1.035); Urobilinogen,Urine <2.0 mg/dL (<2.0)
--- NOTE | 2024-08-20 18:48 | XR ---
EXAMINATION TYPE: XR KUB DATE OF EXAM: 08/20/2024 6:13 PM COMPARISON: 08/28/2014. CLINICAL INDICATION: Female, 63 years old with history of pain; H TECHNIQUE: One radiographic view of the abdomen was obtained. FINDINGS: The bowel gas pattern is nonspecific without dilated loops of small or large bowel. . Fecal material and gas are demonstrated throughout the colon and rectum. There is no evidence for organome sima or pneumoperitoneum. No acute osseous process. No abnormal calcifications are present. Scolios is changes of the spine. IMPRESSION: Nonspecific bowel gas pattern without radiographic evidence for acute process. [facility], , 08/20/2024 6:46 PM
[2024-08-20] MEDS: SENNOSIDES-DOCUSATE SODIUM 1 EACH TAB PO STA (19:58)
[2024-08-20] MEDS: GLYCERIN ADULT SUPPOSITORY 1 EACH RECTAL STA (19:59)
--- NOTE | 2024-08-20 20:16 | US ---
EXAMINATION TYPE: US renals and bladder DATE OF EXAM: 08/20/2024 COMPARISON: CT 08/08/2024 CLINICAL INDICATION: Female, 63 years old with history of pain; patient states abd pain. N/V. constip ation. flank pain. pt states known UT mass TECHNIQUE: Grayscale imaging of the bilateral kidneys and urinary bladder: FINDINGS: EXAM MEASUREMENTS: Right Kidney: 10.1 x 5.1 x 5.3 cm Left Kidney: 10.0 x 4.9 x 5.3 cm slightly limited due to rib shadows Right Kidney: probable hydro Left Kidney: probable hydro, limited due to rib shadows Bladder: wnl Bilateral Jets seen: not seen, artifact from bowel distorting color doppler incidental finding of prominant 13.7 x 8.1 x 9.7cm heterogeneous, lobulated uterus IMPRESSION: 1. Mild right hydronephrosis and mild dilation of the left renal collecting system findings suspicio us for obstructive uropathy possibly due to pelvic uterine mass 2. Heterogenous uterus which demonstrated evidence of malignancy on prior CT 08/08/2024.. [facility], , 08/20/2024 8:14 PM
--- NOTE | 2024-08-20 21:25 | CT ---
EXAMINATION TYPE: CT abdomen pelvis w con DATE OF EXAM: 08/20/2024 8:47 PM COMPARISON: 08/08/2024 CLINICAL INDICATION: Female, 63 years old with history of pain; abdominal pain since yesterday, n/v TECHNIQUE: Axial CT abdomen pelvis w con;Sagittal and coronal reformats were created on a separate w orkstation. Contrast used:80ml mL of Isovue 300 with IV Contrast, (none if empty) Oral contrast used: without Oral Contrast (none if empty) CT DLP: 1056 mGycm, Automated exposure control for dose reduction was used. FINDINGS: LOWER CHEST: Left lower lobe 15 x 12 mm pulmonary nodule, previously 12 x 8 mm. Right lower lobe post erior possible early pulmonary nodule measuring 3 mm. ABDOMEN LIVER: Unremarkable GALLBLADDER AND BILE DUCTS: Unremarkable. PANCREAS: Unremarkable. SPLEEN: Unremarkable. ADRENAL GLANDS: Unremarkable. KIDNEYS AND URETERS: Bilateral hydronephrosis likely secondary to complex heterogenous uterine mass o bstructing/partially displacing the ureters. PELVIS BLADDER: No evidence for wall thickening or mass given limitations of exam. REPRODUCTIVE: Enlarged thickened uterus with heterogenous endometrium. Endometrium measuring up to 29 mm. ABDOMEN & PELVIS STOMACH AND BOWEL: No evidence of bowel obstruction. PERITONEUM/RETROPERITONEUM: No evidence of pneumoperitoneum or free fluid. VASCULATURE: No evidence of aortic aneurysm. MUSCULOSKELETAL: No acute osseous abnormalities. Moderate disc degeneration changes are present throu ghout the thoracolumbar spine. Grade 2 anterolisthesis of L5 on S1. LYMPH NODES: Extensive lymphadenopathy throughout the retroperitoneum largest on the left measuring u p to 43 x 20 mm previously 31 x 22 mm. SOFT TISSUE/ABDOMINAL WALL: Fat-containing umbilical hernia. IMPRESSION: Bilateral hydronephrosis secondary to complex heterogenous uterine mass which interval enlargement of lymphadenopathy and left pulmonary nodule. Findings compatible with progression of disease over such a short time span suggest aggressive malignancy. [facility], , 08/20/2024 9:23 PM
[2024-08-20] MEDS ORDERED: NALOXONE 0.4 MG/ML 1 ML VIAL IV PRN (22:19)
[2024-08-20] MEDS: SODIUM CHLORIDE 0.9% 1,000 ML IV SCH (22:37)
[2024-08-20] MEDS: HYDROmorphone 1 MG/ML 1 ML SYRINGE IVP PRN (22:49)
[2024-08-21 00:10] LABS: Influenza A Not Detected (Not Detectd); Influenza B Not Detected (Not Detectd); RSV Not Detected (Not Detectd)
[2024-08-21] MEDS: ONDANSETRON 4 MG/2 ML VIAL IVP PRN ×2 (00:32→05:44)
[2024-08-21] MEDS: KETOROLAC 15 MG/ML 1 ML VIAL IVP PRN (05:44)
[2024-08-21 16:38] VITALS: BMI 35.3
[2024-08-21] MEDS: PROCHLORPERAZINE INJ 10 MG/2 ML VIAL IVP PRN (16:46)
[2024-08-21] MEDS: HEPARIN SODIUM,PORCINE 5,000 UNIT/ML 1 ML VIAL SQ SCH (16:46)
[2024-08-21] MEDS: SERTRALINE 50 MG TAB PO SCH (16:47)
--- NOTE | 2024-08-21 22:17 | P.HPIM ---
History of Present Illness H&P Date: 08/21/24 Chief Complaint: Abdominal pain Patient is a 63-year-old female with a known history of hypothyroidism, osteoarthritis, IBS and recent diagnosis of concern for uterine cancer presents to ER with complaints of abdominal pain. Patient has been having uncontrolled abdominal pain and presented to ER few times. Patient states that she has history of IBS and has been having issues with constipation. Denied any fever or chills. No nausea or vomiting. No complaints of chest pain or shortness of breath. KUB x-ray showed nonspecific bowel gas pattern without radiographic evidence for acute process Renal ultrasound showed mild right hydronephrosis and mild dilation of the left renal collecting system findings suspicious for obstructive uropathy possibly due to pelvic uterine mass. Heterogenous uterus which demonstrated evidence of malignancy on prior CT 430 CT of the abdomen pelvis showed bilateral hydronephrosis secondary to complex heterogenous uterine mass with interval enlargement of lymphadenopathy and left pulmonary nodule. Findings compatible with progression of the disease over has a short time span suggest aggressive malignancy. Review of Systems Constitutional: Patient denies any fever or chills . Generalized weakness and weight loss. Abdomen: Patient denied nausea vomiting and diarrhea. Patient does have lower abdominal pain and flank pain. Cardiovascular: Patient denies any chest pain or short of breath no palpi tations. Respiratory: patient denied any cough or sputum production. No shortness of breath Neurologic: Patient denied any numbness or tingling. no headache. Musculoskeletal: Patient denies any complaints of joint swelling or deformity. Skin: Negative Psychiatric: Negative Endocrine: No heat or cold intolerance. No recent weight gain. Genitourinary: No dysuria or hematuria. All other 14 point ROS negative except the above Past Medical History Past Medical History: Osteoarthritis (OA), Thyroid Disorder Additional Past Medical History / Comment(s): IRRITABLE BOWEL SYNDROME History of Any Multi-Drug Resistant Organisms: None Reported Past Surgical History: Cholecystectomy Additional Past Surgical History / Comment(s): CARPAL TUNNEL SURGERY, gallbladde r removal Past Anesthesia/Blood Transfusion Reactions: Postoperative Nausea & Vomiting (PONV) Past Psychological History: Depression Smoking Status: Never smoker Past Alcohol Use History: None Reported Past Drug Use History: None Reported - Past Family History Father History Unknown: Yes Family Medical History: CVA/TIA, Diabetes Mellitus, Renal Disease Mother Family Medical History: CVA/TIA Medications and Allergies Home Medications Medication Instructions Recorded Confirmed Type Levothyroxine Sodium [Levoxyl] 100 mcg PO DAILY 09/13/16 08/21/24 History Sertraline [Zoloft] 50 mg PO DAILY 09/13/16 08/21/24 History Ketorolac [Toradol] 10 mg PO Q8HR #15 tab 08/15/24 08/21/24 Rx Ondansetron Odt [Zofran Odt] 4 mg PO Q8HR PRN #10 tab 08/15/24 08/21/24 Rx Multivitamins, Thera [Multivitamin 1 tab PO DAILY 08/21/24 08/21/24 History (formulary)] Allergies Allergy/AdvReac Type Severity Reaction Status Date / Time latex Allergy Rash/Hives Verified 08/21/24 08:01 milk Allergy Unknown Verified 08/21/24 08:01 Sulfa (Sulfonamide Allergy Rash/Hives Verified 08/21/24 08:01 Antibiotics) tramadol Allergy Rash/Hives Verified 08/21/24 08:01 hydromorphone [From Dilaudid] AdvReac Nausea & Verified 08/21/24 08:01 Vomiting Physical Exam Vitals: Vital Signs Temp Pulse Pulse Resp BP BP Pulse Ox 08/21/24 08:00 98 F 82 16 172/82 97 08/21/24 02:00 97.5 F L 88 16 180/95 96 08/21/24 00:41 71 17 172/74 98 08/20/24 22:42 97.7 F 71 17 187/77 97 08/20/24 19:43 78 18 158/82 95 08/20/24 16:40 98.8 F 93 18 154/84 94 L Intake and Output 08/20/24 08/21/24 08/21/24 22:59 06:59 14:59 Intake Total 1080 Output Total 400 Balance 680 Intake: Oral 1080 Output: Urine 300 Emesis 100 Other: Voiding Method Toilet Toilet # Voids 2 Weight 82.1 kg 82.1 kg PHYSICAL EXAMINATION: Patient is lying in the bed comfortably, no acute distress, awake alert and orie nted.. HEENT: Normocephalic. Neck is supple. Pupils reactive. Nostrils clear. Oral cavity is moist. Neck reveals no JVD, carotid bruits, or thyromegaly. CHEST EXAMINATION: Trachea is central. Symmetrical expansion. Lung hansen clear to auscultation and percussion. CARDIAC: Normal S1, S2 with no gallops. No murmurs ABDOMEN: Soft. Bowel sounds normal. No organomegaly. No abdominal bruits. Extremities: reveal no edema. No clubbing or cyanosis Neurologically awake, alert, oriented x3 with well-coordinated movements. No focal deficits noted Skin: No rash or skin lesions. Psychiatric: Coperative. Nonsuicidal, anxious. Musculoskeletal: No joint swelling or deformity. Normal range of motion. Results CBC & Chem 7: 08/20/24 17:50 08/20/24 17:50 Labs: Abnormal Lab Results - Last 24 Hours (Table) 08/20/24 08/20/24 Range/Units 17:50 17:50 WBC 14.55 H (4.50-10.00) 10*3/uL RBC 3.82 L (4.10-5.20) 10*6/uL Hgb 11.1 L (12.0-15.0) g/dL Hct 31.7 L (37.2-46.3) % MPV 8.7 L (9.5-12.2) fL Immature Gran # 0.17 H (0.00-0.04) 10*3/uL Neutrophils # 11.39 H (1.80-7.70) 10*3/uL Sodium 134 L (137-145) mmol/L Chloride 97 L (98-107) mmol/L BUN 19 H (7-17) mg/dL Creatinine 1.15 H (0.52-1.04) mg/dL AST 100 H (14-36) U/L ALT 68 H (4-34) U/L Alkaline Phosphatase 180 H (38-126) U/L Thrombosis Risk Factor Assmnt - DVT/VTE Prophylaxis DVT/VTE Prophylaxis: Pharmacologic Prophylaxis ordered - Choose All That Apply Any of the Below Risk Factors Present?: Yes Each Factor Represents 1 point: Abnormal pulmonary function (COPD), Hx of IBD, Obesity (BMI >25) Other Risk Factors: Yes Each Risk Factor Represents 2 Points: Age 61-74 years Other congenital or acquired thrombophilia - If yes, enter type in comment: No Thrombosis Risk Factor Assessment Total Risk Factor Score: 5 Thrombosis Risk Factor Assessment Level: High Risk Assessment and Plan Assessment: Complex heterogeneous uterine mass with interval enlargement of lymphadenopathy and left pulmonary nodule Intractable abdominal pain secondary to above Bilateral hydronephrosis Hypothyroidism Osteoarthritis IBS DVT prophylaxis with heparin subcu Plan: Patient will be continued on pain management with Toradol and IV Dilaudid. Ativan as needed for anxiety. Oncology was consulted for evaluation. Continue symptomatic management and follow-up closely.
[2024-08-22] MEDS: LEVOTHYROXINE 100 MCG TAB PO SCH (06:29)
[2024-08-22 08:18] LABS: Basophils # (A) 0.09 X 10*3/uL (0.00-0.10); Basophils % (A) 0.8 %; Eosinophils # (A) 0.25 X 10*3/uL (0.04-0.35); Eosinophils % (A) 2.1 %; HCT 28.2 % (37.2-46.3); HGB 9.2 g/dL (12.0-15.0); Lymphocytes % (A) 12.8 %; MCH 27.7 pg (27.0-32.0); MCHC 32.6 g/dL (32.0-37.0); MCV 84.9 FL (80.0-97.0); Mean Platelet Volume 9.4 FL (9.5-12.2); Monocytes # (A) 0.87 X 10*3/uL (0.20-1.00); Monocytes % (A) 7.4 %; NRBC Per 100 WBC 0 X 10*3/uL (0.00-0.01); Neutrophils % (A) 75.2 %; Platelet Count 346 X 10*3/uL (140-440); RBC 3.32 X 10*6/uL (4.10-5.20); RDW 14.3 % (11.5-14.5); WBC 11.71 X 10*3/uL (4.50-10.00)
[2024-08-22] MEDS ORDERED: RX INFO: IV CONTRAST WAS GIVEN 1 EACH MISC MISCELLANE PRN (08:22)
[2024-08-22 08:42] LABS: BUN/Creat Ratio 18.82 Ratio (12.00-20.00); Blood Urea Nitrogen 20.7 mg/dL (9.0-27.0); Calcium 9.1 mg/dL (8.7-10.3); Carbon Dioxide 23.8 mmol/L (21.6-31.8); Chloride 101 mmol/L (96-109); Glucose 86 mg/dL (70-110); Potassium 3.9 mmol/L (3.5-5.5); Sodium 134 mmol/L (135-145)
--- NOTE | 2024-08-22 11:19 | CT ---
EXAMINATION TYPE: CT neck chest w con DATE OF EXAM: 08/22/2024 10:52 AM COMPARISON: CT abdomen and pelvis 08/20/2024. CLINICAL INDICATION: Female, 63 years old with history of Suspected uterine cancer with lung nodules; , possible mets TECHNIQUE: Standard enhanced CT of the neck and chest. Axial sections with coronal and sagittal refo rmats were obtained. Contrast used:100ml mL of Isovue [address] DLP: 887.8 mGycm, Automated exposure control for dose reduction was used. FINDINGS: NECK: Visualized intracranial structure is, orbits and globes, and mastoid air cells appear clear. Opacific ation posterior left ethmoid air cells. Nasopharynx and oropharynx appears clear. Punctate calcification) within the tonsil suggests sequela of prior infection. Epiglottis and prevertebral soft tissues are satisfactory. There may be thickening of the aryepiglottic folds with some asymmetric partial effacement of the lef t piriform sinus, refer to axial images 32 and 29. This should be correlated with direct inspection. Subglottic airway is patent. There is left supraclavicular adenopathy measuring up to 4.2 x 1.9 cm. Small/atrophic thyroid gland. The submandibular and parotid glands appear satisfactory. Bones: Moderate to severe spondylotic change mid to lower cervical spine. CHEST: Heart normal size without pericardial effusion. Aorta normal caliber with conventional arch vessel branching anatomy. Possible enlarged right retrocrural lymph node measuring 8 mm. Otherwise, no thoracic lymphadenopathy by CT size criteria. 3.3 cm mass left upper lobe. Additional scattered smaller bilateral nodules are present. No consolidation or pleural effusion. Abdomen reported separately on recent 08/20/2024 CT. Bones: Left-sided os acromiale. Moderate spondylotic change throughout the thoracic spine. IMPRESSION Neck: 1. Thickening of the aryepiglottic folds with some asymmetric partial effacement of the left piriform sinus. Recommend direct visualization to exclude a mucosal lesion. 2. Left supraclavicular adenopathy measuring 4.2 x 1.9 cm. CHEST: 3. Multiple bilateral pulmonary nodules, largest left upper lobe measuring 3.3 cm suggestive of metas tatic disease. 4. Possible enlarged 8 mm retrocrural lymph node. Otherwise, no thoracic adenopathy seen. [facility], Workstation: [id number], 08/22/2024 11:16 AM
[2024-08-22] MEDS: amLODIPine 10 MG TAB PO SCH (14:45)
--- NOTE | 2024-08-22 16:58 | P.CONS ---
History of Present Illness - Reason for Consult Consult date: 08/22/24 uterine mass Requesting physician: Bela Mccollum - Chief Complaint abd pain - History of Present Illness Mrs. Ricci is a 63-year-old female we have been asked to see regarding a large uterine mass, imaging suspicious for metastatic disease. Patient presented to the emergency department with complaints of abdominal pain, this is her 3rd visit in <10days. The pain is in the lower part of her abdomen, associated with inability to urinate and difficulty having bowel movements (She has a history of IBS-D so, constipation is very new for her). Patient has reports of malaise x 1 month, she has lost 13 pounds, reports occasional vaginal bleeding. KUB x-r ay 08/20/2024 reports nonspecific bowel gas pattern no acute process. CTAP with contrast reporting bilateral hydronephrosis secondary to complex heterogenous uterine mass with lymphadenopathy and a left pulmonary nodule is reporting this as progression of disease over a short time span suggests aggressive malignancy- this was compared to CT 08/08/24-CT AP 08/08/24 with contrast reporting a left lower lobe pulmonary nodule 1.2 cm, left periaortic conglomerate lymphadenopathy measuring 5.9 x 2.7 cm with additional adjacent enlarged lymph nodes, bilateral iliac chain adenopathy 2.7 cm on the left 3.5 cm on the right. Enlarged and lobulated uterus with infiltrative type appearing mass suspicious for malignancy. There is no measurement. She was also in the emergency room on 08/15. She was due to see University Professor 08/21/2024. She was back in the ER on the . Patient is denying fevers or chills, nausea or vomiting, shortness of breath, hemoptysis or swelling in the lower extremities Review of Systems 10 point review of systems is negative except as stated in HPI Past Medical History Past Medical History: Osteoarthritis (OA), Thyroid Disorder Additional Past Medical History / Comment(s): IRRITABLE BOWEL SYNDROME History of Any Multi-Drug Resistant Organisms: None Reported Past Surgical History: Cholecystectomy Additional Past Surgical History / Comment(s): CARPAL TUNNEL SURGERY, gallbladder removal Past Anesthesia/Blood Transfusion Reactions: Postoperative Nausea & Vomiting (P ONV) Past Psychological History: Depression Smoking Status: Never smoker Past Alcohol Use History: None Reported Past Drug Use History: None Reported - Past Family History Father History Unknown: Yes Family Medical History: CVA/TIA, Diabetes Mellitus, Renal Disease Mother Family Medical History: CVA/TIA Medications and Allergies Home Medications Medication Instructions Recorded Confirmed Type Levothyroxine Sodium [Levoxyl] 100 mcg PO DAILY 09/13/16 08/21/24 History Sertraline [Zoloft] 50 mg PO DAILY 09/13/16 08/21/24 History Ketorolac [Toradol] 10 mg PO Q8HR #15 tab 08/15/24 08/21/24 Rx Ondansetron Odt [Zofran Odt] 4 mg PO Q8HR PRN #10 tab 08/15/24 08/21/24 Rx Multivitamins, Thera [Multivitamin 1 tab PO DAILY 08/21/24 08/21/24 History (formulary)] Allergies Allergy/AdvReac Type Severity Reaction Status Date / Time latex Allergy Rash/Hives Verified 08/21/24 08:01 milk Allergy Unknown Verified 08/21/24 08:01 Sulfa (Sulfonamide Allergy Rash/Hives Verified 08/21/24 08:01 Antibiotics) tramadol Allergy Rash/Hives Verified 08/21/24 08:01 hydromorphone [From Dilaudid] AdvReac Nausea & Verified 08/21/24 08:01 Vomiting Physical Exam Vitals: Vital Signs Temp Pulse Resp BP Pulse Ox 08/22/24 12:59 97.7 F 87 18 168/80 97 08/22/24 07:43 98 F 74 17 186/90 97 08/22/24 01:11 97.7 F 84 16 173/86 98 08/21/24 18:59 97.6 F 87 16 119/75 93 L Intake and Output 08/22/24 08/22/24 08/22/24 06:59 14:59 22:59 Other: Voiding Method Toilet # Voids 1 - Constitutional General appearance: cooperative, no acute distress, obese - EENT Eyes: anicteric sclerae, EOMI ENT: hearing grossly normal, normal oropharynx - Neck Neck: lymphadenopathy (rt supraclavicular palpable fullness) - Respiratory Respiratory: bilateral: CTA - Cardiovascular Rhythm: regular Heart sounds: normal: S1, S2 Abnormal Heart Sounds: no systolic murmur, no diastolic murmur, no rub, no S3 Gallop, no S4 Gallop, no click, no other leg Peripheral Edema: bilateral: None - Gastrointestinal General gastrointestinal: no absent bowel sounds, decreased bowel sounds, no distended, no hepatomegaly, no hyperactive bowel sounds, no normal bowel sounds, no organomegaly, no rigid, no scaphoid, soft, no splenomegaly, tenderness, no umbilical hernia, no ventral hernia - Integumentary Integumentary: normal - Neurologic Neurologic: CNII-XII intact - Musculoskeletal Musculoskeletal: strength equal bilaterally - Psychiatric Psychiatric: A&O x's 3, appropriate affect, intact judgment & insight Results CBC & Chem 7: 08/22/24 05:27 08/22/24 05:27 Labs: Abnormal Lab Results - Last 24 Hours (Table) 08/22/24 08/22/24 Range/Units 05:27 05:27 WBC 11.71 H (4.50-10.00) X 10*3/uL RBC 3.32 L (4.10-5.20) X 10*6/uL Hgb 9.2 L (12.0-15.0) g/dL Hct 28.2 L (37.2-46.3) % MPV 9.4 L (9.5-12.2) FL Immature Gran # 0.20 H (0.00-0.04) X 10*3/uL Neutrophils # 8.80 H (1.80-7.70) X 10*3/uL Sodium 134 L (135-145) mmol/L Est GFR (CKD-EPI) 57 L (>=60) CT scan - abdomen: report reviewed CT scan - chest: report reviewed CT scan - pelvis: report reviewed Assessment and Plan (1) Anuria and oliguria Current Visit: Yes Status: Acute Priority: High Code(s): R34 - ANURIA AND OLIGURIA SNOMED Code(s): 086112482 (2) Bilateral hydronephrosis Current Visit: Yes Status: Acute Priority: High Code(s): N13.30 - UN SPECIFIED HYDRONEPHROSIS SNOMED Code(s): 22407973 (3) Abdominal pain Current Visit: Yes Status: Acute Priority: High Code(s): R10.9 - UNSPECIFIED ABDOMINAL PAIN SNOMED Code(s): 60532776 (4) Constipation Current Visit: Yes Status: Acute Priority: High Code(s): K59.00 - CONSTIPATION, UNSPECIFIED SNOMED Code(s): 36176367 (5) Mass of uterine adnexa Current Visit: Yes Status: Acute Priority: High Code(s): N94.89 - OTH COND ASSOC W FEMALE GENITAL ORGANS AND MENSTRUAL CYCLE SNOMED Code(s): 581942036 Plan: Uterine mass, lymphadenopathy, pulmonary nodules -As stated in HPI, all previous imaging imaging has been reviewed. 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 - Patient is symptomatic with difficulty having bowel movements as well as emptying the bladder. Urology has been consulted for anuria. Medications to promote bowel movement ordered -CT of the chest and neck has been ordered for fullness noted on exam in the right supraclavicular area. -Patient is going to need a biopsy. If we can find LAD or a pulm nodule that is amenable to biopsy, we can request IR/Pulm for biopsy. If unable to find a target outside of the uterus, patient is going to need to be referred out for RN M[facility] oncology. This was briefly mentioned to Internal Medicine CLINIC NURSE. Pending CT neck and chest -CA125 ordered - Medications for pain control ordered. Doctor attests: I performed a history and physical examination of this patient, developed impression and plan of care. Discussed with dictator. I agree with dictators note, documented as a scribe.
--- NOTE | 2024-08-22 22:26 | P.GSCN ---
History of Present Illness Consult date: 08/22/24 Reason for Consult: Hydronephrosis Requesting physician: Sherry Marley History of present illness: The patient is a 63-year-old white female recently found to have a uterine mass. She has recently experienced lower abdominal pain, difficulty voiding, constipation, weight loss, and generalized weakness. CT scan shows bilateral hydronephrosis due to a complex heterogenous uterine mass. There is also evidence of lymphadenopathy and a left pulmonary nodule. She has been treated in the past for recurrent UTIs. She has a questionable history of kidney stones. Review of Systems - Genitourinary Genitourinary: Reports flank pain, Denies dysuria, Denies hematuria Past Medical History Past Medical History: Osteoarthritis (OA), Thyroid Disorder Additional Past Medical History / Comment(s): IRRITABLE BOWEL SYNDROME History of Any Multi-Drug Resistant Organisms: None Reported Past Surgical History: Cholecystectomy Additional Past Surgical History / Comment(s): CARPAL TUNNEL SURGERY, gallbladder removal Past Anesthesia/Blood Transfusion Reactions: Postoperative Nausea & Vomiting (PO NV) Past Psychological History: Depression Smoking Status: Never smoker Past Alcohol Use History: None Reported Past Drug Use History: None Reported - Past Family History Father History Unknown: Yes Family Medical History: CVA/TIA, Diabetes Mellitus, Renal Disease Mother Family Medical History: CVA/TIA Medications and Allergies Home Medications Medication Instructions Recorded Confirmed Type Levothyroxine Sodium [Levoxyl] 100 mcg PO DAILY 09/13/16 08/21/24 History Sertraline [Zoloft] 50 mg PO DAILY 09/13/16 08/21/24 History Ketorolac [Toradol] 10 mg PO Q8HR #15 tab 08/15/24 08/21/24 Rx Ondansetron Odt [Zofran Odt] 4 mg PO Q8HR PRN #10 tab 08/15/24 08/21/24 Rx Multivitamins, Thera [Multivitamin 1 tab PO DAILY 08/21/24 08/21/24 History (formulary)] Allergies Allergy/AdvReac Type Severity Reaction Status Date / Time latex Allergy Rash/Hives Verified 08/21/24 08:01 milk Allergy Unknown Verified 08/21/24 08:01 Sulfa (Sulfonamide Allergy Rash/Hives Verified 08/21/24 08:01 Antibiotics) tramadol Allergy Rash/Hives Verified 08/21/24 08:01 hydromorphone [From Dilaudid] AdvReac Nausea & Verified 08/21/24 08:01 Vomiting Surgical - Exam Vital Signs Temp Pulse Resp BP Pulse Ox 98.8 F 93 18 154/84 94 L 08/20/24 16:40 08/20/24 16:40 08/20/24 16:40 08/20/24 16:40 08/20/24 16:40 - General well developed, well nourished, no distress - Respiratory normal respiratory effort - Abdomen Soft, non-distended. Mild suprapubic tenderness to palpation. - Psychiatric oriented to time, oriented to person, oriented to place, speech is normal, memory intact Results - Labs 08/22/24 05:27 08/22/24 05:27 Abnormal Lab Results - Last 24 Hours (Table) 08/20/24 08/22/24 08/22/24 Range/Units 17:50 05:27 05:27 WBC 11.71 H (4.50-10.00) X 10*3/uL RBC 3.32 L (4.10-5.20) X 10*6/uL Hgb 9.2 L (12.0-15.0) g/dL Hct 28.2 L (37.2-46.3) % MPV 9.4 L (9.5-12.2) FL Immature Gran # 0.20 H (0.00-0.04) X 10*3/uL Neutrophils # 8.80 H (1.80-7.70) X 10*3/uL Sodium 134 L (135-145) mmol/L Est GFR (CKD-EPI) 57 L (>=60) CA 125 Antigen 39.6 H (0.0-30.1) U/mL Diabetes panel 08/22/24 Range/Units 05:27 Sodium 134 L (135-145) mmol/L Potassium 3.9 (3.5-5.5) mmol/L Chloride 101 (96-109) mmol/L Carbon Dioxide 23.8 (21.6-31.8) mmol/L BUN 20.7 (9.0-27.0) mg/dL Creatinine 1.1 (0.6-1.5) mg/dL Glucose 86 (70-110) mg/dL Calcium 9.1 (8.7-10.3) mg/dL Calcium panel 08/22/24 Range/Units 05:27 Calcium 9.1 (8.7-10.3) mg/dL Pituitary panel 08/22/24 Range/Units 05:27 Sodium 134 L (135-145) mmol/L Potassium 3.9 (3.5-5.5) mmol/L Chloride 101 (96-109) mmol/L Carbon Dioxide 23.8 (21.6-31.8) mmol/L BUN 20.7 (9.0-27.0) mg/dL Creatinine 1.1 (0.6-1.5) mg/dL Glucose 86 (70-110) mg/dL Calcium 9.1 (8.7-10.3) mg/dL Adrenal panel 08/22/24 Range/Units 05:27 Sodium 134 L (135-145) mmol/L Potassium 3.9 (3.5-5.5) mmol/L Chloride 101 (96-109) mmol/L Carbon Dioxide 23.8 (21.6-31.8) mmol/L BUN 20.7 (9.0-27.0) mg/dL Creatinine 1.1 (0.6-1.5) mg/dL Glucose 86 (70-110) mg/dL Calcium 9.1 (8.7-10.3) mg/dL - Imaging CT scan - abdomen: report reviewed, image reviewed Assessment and Plan (1) Bilateral hydronephrosis Current Visit: Yes Status: Acute Priority: High Code(s): N13.30 - UNSPECIFIED HYDRONEPHROSIS SNOMED Code(s): 76499400 Plan: I had a lengthy discussion with the patient, explaining that her hydronephrosis is almost certainly due to the presence of a uterine mass. Despite the hydronephrosis, her renal function is fairly well-preserved. I have scheduled her to undergo cystoscopy, bilateral retrograde pyelograms, bilateral ureteral stent insertion tomorrow. The rationale for this was reviewed with her in detail. It was made clear to her that the stents would need to be either removed or exchanged within 3 months. Potential risks associated with the procedure include anesthesia, bleeding, infection, ureteral injury, and inability to successfully place the stents. Time with Patient: Greater than 30
[2024-08-22] MEDS: LACTULOSE 20 GM/30 ML CUP PO SCH (22:38)
--- NOTE | 2024-08-23 02:25 | P.PN ---
Subjective Progress Note Date: 08/22/24 Patient is a 63-year-old female with a known history of hypothyroidism, osteoarthritis, IBS and recent diagnosis of concern for uterine cancer presents to ER with complaints of abdominal pain. Patient has been having uncontrolled abdominal pain and presented to ER few times. Patient states that she has history of IBS and has been having issues with constipation. Denied any fever or chills. No nausea or vomiting. No complaints of chest pain or shortness of breath. KUB x-ray showed nonspecific bowel gas pattern without radiographic evidence for acute process Renal ultrasound showed mild right hydronephrosis and mild dilation of the left renal collecting system findings suspicious for obstructive uropathy possibly due to pelvic uterine mass. Heterogenous uterus which demonstrated evidence of malignancy on prior CT 430 CT of the abdomen pelvis showed bilateral hydronephrosis secondary to complex heterogenous uterine mass with interval enlargement of lymphadenopathy and left pulmonary nodule. Findings compatible with progression of the disease over has a short time span suggest aggressive malignancy. 08/22/2024 Patient is seen in follow-up today reporting continued feelings of constipation and abdominal fullness with pain with medications currently being adjusted with oncology following as they have been consulted for a large pelvic uterine mass. Patient also noted to have significant bilateral hydronephrosis secondary to this mass and urology has been consulted. Patient reports she does have history of IBS but has been having issues with constipation over the last 1 to 2 months. Patient reports her appetite is poor and dependent on if she has had bowel movements and has noticed weight loss over the last few months. Patient is currently afebrile with no reports of chest pain or shortness of breath. Patient denies nausea or vomiting and reports his not eating very much Review of systems: Constitutional: No reports of fatigue, fever, or chills Cardiovascular: No reports of chest pain or palpitations Respiratory: No reports of shortness of breath or cough GI: No reports of nausea, vomiting, or diarrhea, reports feeling constipated and having issues with her bowels : No reports of dysuria or retention Neurovascular: No reports of weakness or numbness All medications have been reviewed PHYSICAL EXAMINATION: Patient is lying in the bed, no acute distress, awake alert and oriented x 2-3, well-developed, obese, somewhat flat affect.. HEENT: Normocephalic. Neck is supple. Pupils reactive. Nostrils clear. Oral cavity is moist. Neck reveals no JVD, carotid bruits, or thyromegaly. CHEST EXAMINATION: Trachea is central. Symmetrical expansion. Lung hansen clear to auscultation and percussion. CARDIAC: S1, S2 are muffled ABDOMEN: Soft. Bowel sounds normal. No organomegaly. No abdominal bruits. Extremities: reveal no edema. No clubbing or cyanosis Neurologically awake, alert, oriented x2, intermittent periods of forgetfulness No focal deficits noted Skin: No rash or skin lesions. Psychiatric: Cooperative. Non-suicidal, anxious. Musculoskeletal: No joint swelling or deformity. Normal range of motion. Assessment: Complex heterogeneous uterine mass with interval enlargement of lymphadenopathy and left pulmonary nodule Intractable abdominal pain secondary to above Bilateral hydronephrosis Hypothyroidism Osteoarthritis Obesity with a BMI of 35.3 Constipation, reports to having bowel issues for the last 1 to 2 months History of IBS DVT prophylaxis with heparin subcu GI prophylaxis Full code Plan: Patient will be continued on pain management with Toradol and IV Dilaudid. Ativan as needed for anxiety. Oncology consulted and has ordered a CT of the chest neck abdomen and pelvis which reveals a thickening of the area epiglottic folds with some asymmetric partial effacement of the left piriform sinus recommending direct visualization to exclude a mucosal lesion with left supraclavicular adenopathy measuring 4.2 x 1.9 cm. Chest shows multiple bilateral pulmonary nodules largest in the left upper lobe measuring 3.3 cm suggestive of metastatic disease largest 8 mm retrocrural lymph node. Imaging also suggestive of bilateral hydronephrosis and urology consulted cystoscopy tentatively scheduled for 08/23/2024. Patient will be n.p.o. at midnight Continue current pain regimen and adjust as needed Follow-up on repeat labs and replace electrolytes per protocol Will add lactulose and bowel regimen as patient reports to feeling significantly bloated constipated Encouraged increase activity as tolerated Interventional radiology consultation as well for possible biopsy of the lymph node Overall prognosis is guarded at this time The impression and plan of care has been dictated by Nurse Heather Prac titioner as directed. Dr. Mitch MD I have performed a history and examination and MDM of this patient, discussed the same with the dictator, and agree with the dictator's assessment and plan as written ,documented as a scribe. Based on total visit time, I have performed more than 50% of the visit. Objective - Vital Signs Vital signs: Vital Signs Temp 98 F 08/22/24 07:43 Pulse 74 08/22/24 07:43 Resp 17 08/22/24 07:43 BP 186/90 08/22/24 07:43 Pulse Ox 97 08/22/24 07:43 FiO2 Intake & Output 08/21/24 08/22/24 08/22/24 18:59 06:59 18:59 Weight 82.1 kg Other: Voiding Method Toilet Toilet # Voids 3 1 - Labs CBC & Chem 7: 08/22/24 05:27 08/22/24 05:27 Labs: Abnormal Lab Results - Last 24 Hours (Table) 08/22/24 08/22/24 Range/Units 05:27 05:27 WBC 11.71 H (4.50-10.00) X 10*3/uL RBC 3.32 L (4.10-5.20) X 10*6/uL Hgb 9.2 L (12.0-15.0) g/dL Hct 28.2 L (37.2-46.3) % MPV 9.4 L (9.5-12.2) FL Immature Gran # 0.20 H (0.00-0.04) X 10*3/uL Neutrophils # 8.80 H (1.80-7.70) X 10*3/uL Sodium 134 L (135-145) mmol/L Est GFR (CKD-EPI) 57 L (>=60)
[2024-08-23 08:17] LABS: ALT 44 U/L (8-44); AST 58 U/L (13-35); Albumin 3.4 g/dL (3.8-4.9); Albumin/Globulin Ratio 1.21 Ratio (1.60-3.17); Alkaline Phosphatase 151 U/L (41-126); Blood Urea Nitrogen 18.2 mg/dL (9.0-27.0); Calcium 9.1 mg/dL (8.7-10.3); Carbon Dioxide 20.8 mmol/L (21.6-31.8); Chloride 108 mmol/L (96-109); Globulin 2.8 g/dL (1.6-3.3); Glucose 89 mg/dL (70-110); Magnesium 2.1 mg/dL (1.5-2.4); Potassium 4.5 mmol/L (3.5-5.5); Sodium 138 mmol/L (135-145); Total Bilirubin 0.2 mg/dL (0.3-1.2); Total Protein 6.2 g/dL (6.2-8.2)
[2024-08-23 08:27] LABS: Basophils # (A) 0.09 X 10*3/uL (0.00-0.10); Basophils % (A) 0.7 %; Eosinophils # (A) 0.41 X 10*3/uL (0.04-0.35); Eosinophils % (A) 3.1 %; HCT 29.1 % (37.2-46.3); HGB 9.4 g/dL (12.0-15.0); Lymphocytes # (A) 1.42 X 10*3/uL (0.90-5.00); Lymphocytes % (A) 10.7 %; MCH 28.1 pg (27.0-32.0); MCHC 32.3 g/dL (32.0-37.0); MCV 87.1 FL (80.0-97.0); Mean Platelet Volume 9.4 FL (9.5-12.2); Monocytes # (A) 0.85 X 10*3/uL (0.20-1.00); Monocytes % (A) 6.4 %; NRBC Per 100 WBC 0 X 10*3/uL (0.00-0.01); Neutrophils # (A) 10.32 X 10*3/uL (1.80-7.70); Neutrophils % (A) 77.4 %; Platelet Count 368 X 10*3/uL (140-440); RBC 3.34 X 10*6/uL (4.10-5.20); RDW 14.5 % (11.5-14.5); WBC 13.32 X 10*3/uL (4.50-10.00)
--- NOTE | 2024-08-23 08:50 | MR ---
EXAMINATION TYPE: MR brain wo/w con DATE OF EXAM: 08/23/2024 8:42 AM COMPARISON: None. CLINICAL INDICATION: Female, 63 years old with history of ams, headache, poss metastasis; PHH, ams, h eadache, poss metastasis TECHNIQUE: Multi planar, multi sequence imaging was performed through the brain including: T1, T2, In version recovery, susceptibility weighted imaging and gradient echo imaging and Diffusion weighted im aging. The patient was then given intravenous contrast and multi planar, T1 fat-saturation images wer e obtained. IV Contrast: 8ml mL Gadobutrol FINDINGS: The strickland-white junctions, ventricular system, basal cisterns appear unremarkable. Diffusion-weighted imaging shows no evidence of restricted diffusion to suggest acute/subacute infarct. Intracranial ar terial flow voids are maintained. Midline structures show no abnormality. Scattered foci of high T2 s ignal intensity are seen within the periventricular white matter. The susceptibility weighted images do not reveal any evidence for micro-hemorrhage. After administration of gadolinium, no abnormal enha ncement is seen. The bone marrow signal is within normal limits. Paranasal sinuses and mastoid air cells: No significant paranasal sinus disease. Visualized orbits: Orbital contents are intact. IMPRESSION: 1. No evidence of intracranial mass, acute/subacute infarct, or abnormal enhancement. 2. Nonspecific white matter changes, likely related to small vessel ischemic disease. [facility], , 08/23/2024 8:48 AM
[2024-08-23] MEDS: LORazepam 0.5 MG TAB PO PRN (09:34)
[2024-08-23] MEDS: IV FLUID CONTINUATION 1,000 ML IV ONE (13:23)
[2024-08-23] MEDS: LACTATED RINGERS 1,000 ML BAG IV STA (13:37)
[2024-08-23] MEDS ORDERED: PROPOFOL 10 MG/ML 20 ML VIAL IV ONE (15:12)
[2024-08-23] MEDS ORDERED: MIDAZOLAM 2 MG/2 ML VIAL ONE (15:12)
[2024-08-23] MEDS ORDERED: fentaNYL (PF) 50 MCG/ML 2 ML AMP ONE (15:12)
[2024-08-23] MEDS ORDERED: KETAMINE HCL IN 0.9 % NACL 50 MG/5 ML SYRINGE ONE (15:12)
[2024-08-23] MEDS ORDERED: GLYCOPYRROLATE 0.2 MG/ML 2 ML VIAL ONE (15:12)
[2024-08-23] MEDS: FLUID CONTINUATION IV ONE (15:17)
[2024-08-23] MEDS: CEFAZOLIN IV ONE (15:17)
[2024-08-23] MEDS: IOPAMIDOL-300 100ML BTL MISCELLANE ONE (15:36)
--- NOTE | 2024-08-23 15:45 | US ---
EXAMINATION TYPE: US biopsy lymph node DATE OF EXAM: 08/23/2024 11:09 AM COMPARISON: CT neck and chest August 22, 2024 CLINICAL INDICATION:Female, 63 years old with history of Left supraclavicular adenopathy; history of metastatic endometrial cancer, ATTENDING: Dr. Cobian PROCEDURE: Informed consent was obtained. The risks and benefits of the procedure were discussed with the patien t. Preprocedure ultrasound shows abnormal enlarged nodes left supraclavicular region corresponding to recent CT. The site was marked. Timeout procedure was performed The patient was prepped, draped in the usual sterile fashion, and locally anesthetized with 1% lidoca ine. 2 core biopsies were performed utilizing 18-gauge Bard needle. Samples were sent to the patholo gy department for further analysis. Patient tolerated the procedure without incident and was returne d to the floor in stable condition. IMPRESSION: Successful ultrasound guided core biopsy of left supraclavicular abnormal adenopathy. [facility], , 08/23/2024 3:43 PM
--- NOTE | 2024-08-23 16:05 | P.OP ---
Date of Procedure: 08/23/24 Preoperative Diagnosis: Bilateral hydronephrosis Postoperative Diagnosis: Same Procedure(s) Performed: Cystoscopy, bilateral retrograde pyelogram, bilateral ureteral stent insertion Anesthesia: MAC Surgeon: Dung Shane Estimated Blood Loss (ml): 0 IV fluids (ml): 200 Pathology: none sent Condition: stable Disposition: PACU Indications for Procedure: The patient is a 63-year-old white female recently found to have a uterine mass. She has recently experienced lower abdominal pain, difficulty voiding, constipation, weight loss, and generalized weakness. CT scan shows bilateral hydronephrosis due to a complex heterogenous uterine mass. There is also evidence of lymphadenopathy and a left pulmonary nodule. She now comes for ureteral stent placement. Operative Findings: Anterior vaginal wall mass resulting in urethral narrowing and elevation of the bladder trigone. Bilateral distal ureteral narrowing with proximal ureteral dilation. Description of Procedure: The patient was taken to the operating room and placed in the dorsolithotomy position, with legs supported in Popeye stirrups. The external genitalia was prepped and draped sterilely. Examination revealed thickening of the anterior vaginal wall over the urethra. The 30 lens was used to introduce the 22-[place] Stortz cystoscopic sheath through the urethra and into the bladder under direct vision. The bladder was examined in its entirety. Due to elevation of the bladder trigone, visualization of the ureteral orifice ease was somewhat difficult. No tumors or foreign bodies were seen. Using a 10 [place]i cone-tip catheter, bilateral retrograde pyelograms were performed. The distal ureters appeared diminished to normal in caliber, but the proximal two thirds of each ureter showed evidence of dilation. Next, a 0.035 inch Glidewire was passed through the cystoscope. The right ureteral orifice was cannulated, and the Glidewire was slowly advanced up to the renal pelvis. A 22 cm, 6-[place] double-J ureteral stent was placed over the wire. Proper stent positioning was verified fluoroscopically and endoscopically. The same was then repeated on the contralateral side. The bladder was emptied and the cystoscope removed. The patient tolerated the procedure well and was taken to the recovery room in stable condition.
[2024-08-23] MEDS: HYDROmorphone 0.5 MG/0.5 ML SYRINGE IVP STA (16:26)
[2024-08-23] MEDS: hydrALAZINE HCL 20 MG/ML 1 ML VIAL IVP STA (16:31)
--- NOTE | 2024-08-23 16:54 | FL ---
EXAMINATION TYPE: FL guidance operating room DATE OF EXAM: 08/23/2024 FLUOROSCOPY Bilateral retrograde cysto and stent placement-12 sec FL-DAP-[id number] mGym2-3.68 mGy No images are provided. [facility], Workstation: [id number], 08/23/2024 4:51 PM
[2024-08-23] MEDS: ceFAZolin 2 GM in DEXTROSE 5% IN WATER 50 ML IVPB ONE (17:20)
[2024-08-24] MEDS: LACTULOSE 20 GM/30 ML CUP PO PRN (06:08)
[2024-08-24 08:46] LABS: Basophils # (A) 0.08 X 10*3/uL (0.00-0.10); Basophils % (A) 0.5 %; Eosinophils # (A) 0.36 X 10*3/uL (0.04-0.35); Eosinophils % (A) 2.1 %; HCT 29.5 % (37.2-46.3); HGB 9.4 g/dL (12.0-15.0); Lymphocytes # (A) 1.57 X 10*3/uL (0.90-5.00); Lymphocytes % (A) 9.2 %; MCH 27.9 pg (27.0-32.0); MCHC 31.9 g/dL (32.0-37.0); MCV 87.5 FL (80.0-97.0); Mean Platelet Volume 9.5 FL (9.5-12.2); Monocytes # (A) 0.92 X 10*3/uL (0.20-1.00); Monocytes % (A) 5.4 %; NRBC Per 100 WBC 0 X 10*3/uL (0.00-0.01); Neutrophils # (A) 13.82 X 10*3/uL (1.80-7.70); Neutrophils % (A) 80.9 %; Platelet Count 377 X 10*3/uL (140-440); RBC 3.37 X 10*6/uL (4.10-5.20); RDW 14.7 % (11.5-14.5); WBC 17.07 X 10*3/uL (4.50-10.00)
--- NOTE | 2024-08-24 09:04 | P.PN ---
Subjective Progress Note Date: 08/23/24 Patient is a 63-year-old female with a known history of hypothyroidism, osteoarthritis, IBS and recent diagnosis of concern for uterine cancer presents to ER with complaints of abdominal pain. Patient has been having uncontrolled abdominal pain and presented to ER few times. Patient states that she has history of IBS and has been having issues with constipation. Denied any fever or chills. No nausea or vomiting. No complaints of chest pain or shortness of breath. KUB x-ray showed nonspecific bowel gas pattern without radiographic evidence for acute process Renal ultrasound showed mild right hydronephrosis and mild dilation of the left renal collecting system findings suspicious for obstructive uropathy possibly due to pelvic uterine mass. Heterogenous uterus which demonstrated evidence of malignancy on prior CT 430 CT of the abdomen pelvis showed bilateral hydronephrosis secondary to complex heterogenous uterine mass with interval enlargement of lymphadenopathy and left pulmonary nodule. Findings compatible with progression of the disease over has a short time span suggest aggressive malignancy. 08/22/2024 Patient is seen in follow-up today reporting continued feelings of constipation and abdominal fullness with pain with medications currently being adjusted with oncology following as they have been consulted for a large pelvic uterine mass. Patient also noted to have significant bilateral hydronephrosis secondary to this mass and urology has been consulted. Patient reports she does have history of IBS but has been having issues with constipation over the last 1 to 2 months. Patient reports her appetite is poor and dependent on if she has had bowel movements and has noticed weight loss over the last few months. Patient is currently afebrile with no reports of chest pain or shortness of breath. Patient denies nausea or vomiting and reports his not eating very much 08/23/2024 Patient is seen in follow-up today with multiple consultations including oncology and urology following and patient is scheduled to undergo cystoscopy with possible bilateral ureteral stent placement for bilateral hydronephrosis. Patient was started on bowel regimen including lactulose although is refusing and no bowel movement reported. Patient is lethargic and recently just came back from lymph node biopsy which is pending at this time. Patient did undergo MRI of the brain which was negative for any acute changes and no lesions noted. Encourage increase activity as tolerated and will continue with current pain regimen and encouraged bowel regimen as well. Review of systems: Constitutional: No reports of fatigue, fever, or chills Cardiovascular: No reports of chest pain or palpitations Respiratory: No reports of shortness of breath or cough GI: No reports of nausea, vomiting, or diarrhea, reports continuous feeling of constipation and having issues with her bowels : No reports of dysuria or retention Neurovascular: No reports of weakness or numbness All medications have been reviewed PHYSICAL EXAMINATION: Patient is lying in the bed, lethargic although arousable, no acute distress, awake alert and oriented x 2-3, well-developed, obese, somewhat flat affect.. HEENT: Normocephalic. Neck is supple. Pupils reactive. Nostrils clear. Oral cavity is moist. Neck reveals no JVD, carotid bruits, or thyromegaly. CHEST EXAMINATION: Trachea is central. Symmetrical expansion. Lung hansen clear to auscultation and percussion. Left upper chest wall near the clavicle biopsy site with dressing that is dry and intact CARDIAC: S1, S2 are muffled ABDOMEN: Soft. Bowel sounds normal. No organomegaly. No abdominal bruits. Extremities: reveal no edema. No clubbing or cyanosis Neurologically awake, alert, oriented x2, intermittent periods of forgetfulness No focal deficits noted Skin: No rash or skin lesions. Psychiatric: Cooperative. Non-suicidal, anxious. Musculoskeletal: No joint swelling or deformity. Normal range of motion. Assessment: Complex heterogeneous uterine mass with interval enlargement of lymphadenopathy and left pulmonary nodule, status post lymph node biopsy of the left supraclavicular adenopathy Intractable abdominal pain secondary to above Bilateral hydronephrosis, scheduled for ureteral stent placement with urology, will await report Hypothyroidism Osteoarthritis Obesity with a BMI of 35.3 Constipation, reports to having bowel issues for the last 1 to 2 months History of IBS DVT prophylaxis with heparin subcu GI prophylaxis Full code Plan: Patient will be continued on pain management with Toradol and IV Dilaudid. Ativan as needed for anxiety. Oncology consulted and has ordered a CT of the chest neck abdomen and pelvis which reveals a thickening of the area epiglottic folds with some asymmetric partial effacement of the left piriform sinus recommending direct visualization to exclude a mucosal lesion with left supraclavicular adenopathy measuring 4.2 x 1.9 cm. Chest shows multiple bilateral pulmonary nodules largest in the left upper lobe measuring 3.3 cm suggestive of metastatic disease largest 8 mm retrocrural lymph node. Imaging also suggestive of bilateral hydronephrosis and urology following gina eduled for cystoscopy and stent placement today 08/23/2024. Diet to be resumed once cleared by surgery Continue current pain regimen and adjust as needed Follow-up on repeat labs and replace electrolytes per protocol Continue lactulose as needed as patient has been refusing it as scheduled. Continue bowel regimen as needed Encouraged increase activity as tolerated Interventional radiology was consulted and patient underwent ultrasound-guided core biopsy of the left supraclavicular abnormal adenopathy today 08/23/2024 Overall prognosis is guarded at this time The impression and plan of care has been dictated by Bela Mccollum, Nurse Practitioner as directed. Dr. Mitch MD I have performed a history and examination and MDM of this patient, discussed the same with the dictator, and agree with the dictator's assessment and plan as written ,documented as a scribe. Based on total visit time, I have performed more than 50% of the visit. Objective - Vital Signs Vital signs: Vital Signs Temp 98.4 F 08/23/24 08:00 Pulse 84 08/23/24 09:36 Resp 20 08/23/24 08:00 BP 177/82 08/23/24 09:36 Pulse Ox 97 08/23/24 08:00 FiO2 Intake & Output 08/22/24 08/23/24 08/23/24 18:59 06:59 18:59 Other: Voiding Method Toilet Toilet # Voids 1 - Labs CBC & Chem 7: 08/24/24 06:07 08/23/24 05:44 Labs: Abnormal Lab Results - Last 24 Hours (Table) 08/20/24 08/23/24 08/23/24 Range/Units 17:50 05:44 05:44 WBC 13.32 H (4.50-10.00) X 10*3/uL RBC 3.34 L (4.10-5.20) X 10*6/uL Hgb 9.4 L (12.0-15.0) g/dL Hct 29.1 L (37.2-46.3) % MPV 9.4 L (9.5-12.2) FL Immature Gran # 0.23 H (0.00-0.04) X 10*3/uL Neutrophils # 10.32 H (1.80-7.70) X 10*3/uL Eosinophils # 0.41 H (0.04-0.35) X 10*3/uL Carbon Dioxide 20.8 L (21.6-31.8) mmol/L Total Bilirubin 0.2 L (0.3-1.2) mg/dL AST 58 H (13-35) U/L Alkaline Phosphatase 151 H (41-126) U/L Albumin 3.4 L (3.8-4.9) g/dL Albumin/Globulin Ratio 1.21 L (1.60-3.17) Ratio CA 125 Antigen 39.6 H (0.0-30.1) U/mL
--- NOTE | 2024-08-24 09:04 | P.PN ---
Subjective Progress Note Date: 08/23/24 Patient is a 63-year-old female with a known history of hypothyroidism, osteoarthritis, IBS and recent diagnosis of concern for uterine cancer presents to ER with complaints of abdominal pain. Patient has been having uncontrolled abdominal pain and presented to ER few times. Patient states that she has history of IBS and has been having issues with constipation. Denied any fever or chills. No nausea or vomiting. No complaints of chest pain or shortness of breath. KUB x-ray showed nonspecific bowel gas pattern without radiographic evidence for acute process Renal ultrasound showed mild right hydronephrosis and mild dilation of the left renal collecting system findings suspicious for obstructive uropathy possibly due to pelvic uterine mass. Heterogenous uterus which demonstrated evidence of malignancy on prior CT 430 CT of the abdomen pelvis showed bilateral hydronephrosis secondary to complex heterogenous uterine mass with interval enlargement of lymphadenopathy and left pulmonary nodule. Findings compatible with progression of the disease over has a short time span suggest aggressive malignancy. 08/22/2024 Patient is seen in follow-up today reporting continued feelings of constipation and abdominal fullness with pain with medications currently being adjusted with oncology following as they have been consulted for a large pelvic uterine mass. Patient also noted to have significant bilateral hydronephrosis secondary to this mass and urology has been consulted. Patient reports she does have history of IBS but has been having issues with constipation over the last 1 to 2 months. Patient reports her appetite is poor and dependent on if she has had bowel movements and has noticed weight loss over the last few months. Patient is currently afebrile with no reports of chest pain or shortness of breath. Patient denies nausea or vomiting and reports his not eating very much 08/23/2024 Patient is seen in follow-up today with multiple consultations including oncology and urology following and patient is scheduled to undergo cystoscopy with possible bilateral ureteral stent placement for bilateral hydronephrosis. Patient was started on bowel regimen including lactulose although is refusing and no bowel movement reported. Patient is lethargic and recently just came back from lymph node biopsy which is pending at this time. Patient did undergo MRI of the brain which was negative for any acute changes and no lesions noted. Encourage increase activity as tolerated and will continue with current pain regimen and encouraged bowel regimen as well. Review of systems: Constitutional: No reports of fatigue, fever, or chills Cardiovascular: No reports of chest pain or palpitations Respiratory: No reports of shortness of breath or cough GI: No reports of nausea, vomiting, or diarrhea, reports continuous feeling of constipation and having issues with her bowels : No reports of dysuria or retention Neurovascular: No reports of weakness or numbness All medications have been reviewed PHYSICAL EXAMINATION: Patient is lying in the bed, lethargic although arousable, no acute distress, awake alert and oriented x 2-3, well-developed, obese, somewhat flat affect.. HEENT: Normocephalic. Neck is supple. Pupils reactive. Nostrils clear. Oral cavity is moist. Neck reveals no JVD, carotid bruits, or thyromegaly. CHEST EXAMINATION: Trachea is central. Symmetrical expansion. Lung hansen clear to auscultation and percussion. Left upper chest wall near the clavicle biopsy site with dressing that is dry and intact CARDIAC: S1, S2 are muffled ABDOMEN: Soft. Bowel sounds normal. No organomegaly. No abdominal bruits. Extremities: reveal no edema. No clubbing or cyanosis Neurologically awake, alert, oriented x2, intermittent periods of forgetfulness No focal deficits noted Skin: No rash or skin lesions. Psychiatric: Cooperative. Non-suicidal, anxious. Musculoskeletal: No joint swelling or deformity. Normal range of motion. Assessment: Complex heterogeneous uterine mass with interval enlargement of lymphadenopathy and left pulmonary nodule, status post lymph node biopsy of the left supraclavicular adenopathy Intractable abdominal pain secondary to above Bilateral hydronephrosis, scheduled for ureteral stent placement with urology, will await report Hypothyroidism Osteoarthritis Obesity with a BMI of 35.3 Constipation, reports to having bowel issues for the last 1 to 2 months History of IBS DVT prophylaxis with heparin subcu GI prophylaxis Full code Plan: Patient will be continued on pain management with Toradol and IV Dilaudid. Ativan as needed for anxiety. Oncology consulted and has ordered a CT of the chest neck abdomen and pelvis which reveals a thickening of the area epiglottic folds with some asymmetric partial effacement of the left piriform sinus recommending direct visualization to exclude a mucosal lesion with left supraclavicular adenopathy measuring 4.2 x 1.9 cm. Chest shows multiple bilateral pulmonary nodules largest in the left upper lobe measuring 3.3 cm suggestive of metastatic disease largest 8 mm retrocrural lymph node. Imaging also suggestive of bilateral hydronephrosis and urology following gina eduled for cystoscopy and stent placement today 08/23/2024. Diet to be resumed once cleared by surgery Continue current pain regimen and adjust as needed Follow-up on repeat labs and replace electrolytes per protocol Continue lactulose as needed as patient has been refusing it as scheduled. Continue bowel regimen as needed Encouraged increase activity as tolerated Interventional radiology was consulted and patient underwent ultrasound-guided core biopsy of the left supraclavicular abnormal adenopathy today 08/23/2024 Overall prognosis is guarded at this time The impression and plan of care has been dictated by Bela Mccollum, Nurse Practitioner as directed. Dr. Mitch MD I have performed a history and examination and MDM of this patient, discussed the same with the dictator, and agree with the dictator's assessment and plan as written ,documented as a scribe. Based on total visit time, I have performed more than 50% of the visit. Objective - Vital Signs Vital signs: Vital Signs Temp 98.1 F 08/24/24 07:59 Pulse 84 08/24/24 07:59 Resp 18 08/24/24 07:59 BP 173/84 08/24/24 07:59 Pulse Ox 98 08/24/24 07:59 FiO2 Intake & Output 08/23/24 08/24/24 08/24/24 18:59 06:59 18:59 Intake Total 650 590 Output Total 0 Balance 650 590 Weight 82.1 kg Intake: IV 650 Oral 590 Output: Estimated Blood Loss 0 Other: Voiding Method Toilet Toilet # Voids 2 3 - Labs CBC & Chem 7: 08/27/24 04:38 08/27/24 04:38 Labs: Abnormal Lab Results - Last 24 Hours (Table) 08/24/24 Range/Units 06:07 WBC 17.07 H (4.50-10.00) X 10*3/uL RBC 3.37 L (4.10-5.20) X 10*6/uL Hgb 9.4 L (12.0-15.0) g/dL Hct 29.5 L (37.2-46.3) % MCHC 31.9 L (32.0-37.0) g/dL RDW 14.7 H (11.5-14.5) % Immature Gran # 0.32 H (0.00-0.04) X 10*3/uL Neutrophils # 13.82 H (1.80-7.70) X 10*3/uL Eosinophils # 0.36 H (0.04-0.35) X 10*3/uL
[2024-08-24 10:53] LABS: ALT 39 U/L (8-44); AST 52 U/L (13-35); Albumin 3.6 g/dL (3.8-4.9); Albumin/Globulin Ratio 1.24 Ratio (1.60-3.17); Alkaline Phosphatase 153 U/L (41-126); BUN/Creat Ratio 19.78 Ratio (12.00-20.00); Blood Urea Nitrogen 17.8 mg/dL (9.0-27.0); Calcium 9.2 mg/dL (8.7-10.3); Carbon Dioxide 22.2 mmol/L (21.6-31.8); Chloride 100 mmol/L (96-109); Globulin 2.9 g/dL (1.6-3.3); Glucose 113 mg/dL (70-110); Magnesium 1.8 mg/dL (1.5-2.4); Potassium 4.2 mmol/L (3.5-5.5); Sodium 134 mmol/L (135-145); Total Bilirubin <0.2 mg/dL (0.3-1.2); Total Protein 6.5 g/dL (6.2-8.2)
[2024-08-24] MEDS ORDERED: HYDROcodone/APAP 5-325MG 1 EACH TAB PO PRN (13:52)
[2024-08-24] MEDS: bisacodyL 10 MG SUPP RECTAL SCH (16:52)
--- NOTE | 2024-08-24 17:45 | P.PN ---
Subjective Progress Note Date: 08/24/24 No acute events overnight. Patient reporting pain is controlled currently on IV pain meds. S/p left supraclavicular lymph node biopsy, path pending. Objective - Vital Signs Vital signs: Vital Signs Temp 98 F 08/24/24 13:52 Pulse 86 08/24/24 13:52 Resp 17 08/24/24 13:52 BP 162/72 08/24/24 13:52 Pulse Ox 97 08/24/24 13:52 FiO2 Intake & Output 08/23/24 08/24/24 08/24/24 18:59 06:59 18:59 Intake Total 650 590 Output Total 0 Balance 650 590 Weight 82.1 kg 82.1 kg Intake: IV 650 Oral 590 Output: Estimated Blood Loss 0 Other: Voiding Method Toilet Toilet Toilet # Voids 2 3 - Constitutional General appearance: Present: average body habitus, no acute distress - EENT Eyes: Present: anicteric sclerae, EOMI ENT: Present: hearing grossly normal - Respiratory Details: breathing is even and unlabored - Cardiovascular Details: skin warm and dry - Integumentary Integumentary: Absent: cyanotic - Musculoskeletal Musculoskeletal: Present: generalized weakness - Psychiatric Psychiatric: Present: A&O x's 3 - Labs CBC & Chem 7: 08/24/24 06:07 08/24/24 06:07 Labs: Abnormal Lab Results - Last 24 Hours (Table) 08/24/24 08/24/24 Range/Units 06:07 06:07 WBC 17.07 H (4.50-10.00) X 10*3/uL RBC 3.37 L (4.10-5.20) X 10*6/uL Hgb 9.4 L (12.0-15.0) g/dL Hct 29.5 L (37.2-46.3) % MCHC 31.9 L (32.0-37.0) g/dL RDW 14.7 H (11.5-14.5) % Immature Gran # 0.32 H (0.00-0.04) X 10*3/uL Neutrophils # 13.82 H (1.80-7.70) X 10*3/uL Eosinophils # 0.36 H (0.04-0.35) X 10*3/uL Sodium 134 L (135-145) mmol/L Glucose 113 H (70-110) mg/dL Total Bilirubin <0.2 L (0.3-1.2) mg/dL AST 52 H (13-35) U/L Alkaline Phosphatase 153 H (41-126) U/L Albumin 3.6 L (3.8-4.9) g/dL Albumin/Globulin Ratio 1.24 L (1.60-3.17) Ratio Assessment and Plan (1) Abdominal pain Current Visit: Yes Status: Acute Priority: High Code(s): R10.9 - UNSPECIFIED ABDOMINAL PAIN SNOMED Code(s): 85539356 (2) Bilateral hydronephrosis Current Visit: Yes Status: Acute Priority: High Code(s): N13.30 - UNSPECIFIED HYDRONEPHROSIS SNOMED Code(s): 07646097 (3) Cancer associated pain Current Visit: Yes Status: Acute Code(s): G89.3 - NEOPLASM RELATED PAIN (ACUTE) (CHRONIC) SNOMED Code(s): 97015823395774 (4) Mass of uterine adnexa Current Visit: Yes Status: Acute Priority: High Code(s): N94.89 - OTH COND ASSOC W FEMALE GENITAL ORGANS AND MENSTRUAL CYCLE SNOMED Code(s): 083042812 Plan: Uterine mass, lymphadenopathy, pulmonary nodules -As stated in HPI, all previous imaging imaging has been reviewed. Findings concerning for a primary [employer] malignancy with metastatic disease to lymph nodes in the lungs. - Patient is symptomatic with difficulty having bowel movements as well as emptying the bladder. Urology has been consulted for anuria. Medications to promote bowel movement ordered -CT of the chest and neck has been ordered for fullness noted on exam in the right supraclavicular area. Scan showed thickening of the aryepiglottic folds with some asymmetric partial effacement of the left pyriform sinus. Left super clavicular adenopathy measuring 4.2 x 1.9 cm. Multiple bilateral pulmonary nodules largest measuring 3.3 cm. Possible enlarged 8 mm retrocrural lymph node -S/p left supraclavicular LN biopsy, path pending. -CA125 mildly elevated at 39.6, non-specific - Medications for pain control ordered. Will add long acting pain meds, with norco prn for breakthrough pain Doctor attests: I performed a history and physical examination of this patient, developed impression and plan of care. Discussed with dictator. I agree with dictators note, documented as a scribe.
[2024-08-24] MEDS: DOCUSATE 100 MG CAP PO SCH (21:24)
[2024-08-24] MEDS: MORPHINE SULFATE ER 15 MG TABLET PO SCH (21:24)
[2024-08-24] MEDS: LOSARTAN 50 MG TAB PO SCH (21:31)
--- NOTE | 2024-08-25 08:41 | P.PN ---
Subjective Progress Note Date: 08/24/24 Patient is a 63-year-old female with a known history of hypothyroidism, osteoarthritis, IBS and recent diagnosis of concern for uterine cancer presents to ER with complaints of abdominal pain. Patient has been having uncontrolled abdominal pain and presented to ER few times. Patient states that she has history of IBS and has been having issues with constipation. Denied any fever or chills. No nausea or vomiting. No complaints of chest pain or shortness of breath. KUB x-ray showed nonspecific bowel gas pattern without radiographic evidence for acute process Renal ultrasound showed mild right hydronephrosis and mild dilation of the left renal collecting system findings suspicious for obstructive uropathy possibly due to pelvic uterine mass. Heterogenous uterus which demonstrated evidence of malignancy on prior CT 430 [address] of the abdomen pelvis showed bilateral hydronephrosis secondary to complex heterogenous uterine mass with interval enlargement of lymphadenopathy and left pulmonary nodule. Findings compatible with progression of the disease over has a short time span suggest aggressive malignancy. 08/22/2024 Patient is seen in follow-up today reporting continued feelings of constipation and abdominal fullness with pain with medications currently being adjusted with oncology following as they have been consulted for a large pelvic uterine mass. Patient also noted to have significant bilateral hydronephrosis secondary to this mass and urology has been consulted. Patient reports she does have history of IBS but has been having issues with constipation over the last 1 to 2 months. Patient reports her appetite is poor and dependent on if she has had bowel movements and has noticed weight loss over the last few months. Patient is currently afebrile with no reports of chest pain or shortness of breath. Patient denies nausea or vomiting and reports his not eating very much 08/23/2024 Patient is seen in follow-up today with multiple consultations including oncology and urology following and patient is scheduled to undergo cystoscopy with possible bilateral ureteral stent placement for bilateral hydronephrosis. Patient was started on bowel regimen including lactulose although is refusing and no bowel movement reported. Patient is lethargic and recently just came back from lymph node biopsy which is pending at this time. Patient did undergo MRI of the brain which was negative for any acute changes and no lesions noted. Encourage increase activity as tolerated and will continue with current pain regimen and encouraged bowel regimen as well. 08/24/2024 Patient is seen and evaluated in follow-up this morning is status post bilateral stent placement with urology maintained on gentle hydration and reports continued surgical site pain and discomfort and when voiding is extremely uncomfortable. Patient also with continued constipation was attempting lac tulose although not tolerating much making her nauseated. Will add Dulcolax suppository and recommend to continue until having bowel movements. Patient is fearful of bearing down with the continued pain. Continue with pain regimen and will adjust accordingly. Encouraged increase activity as tolerated as patient reports she would like to go home soon and discussing possible discharge home in 24 hours although would recommend having bowel movements prior to discharge. Plan will be for outpatient follow-up with oncology and currently awaiting biopsy report. White count is elevated at 17.07 with a hemoglobin of 9.4, platelets are 377. Blood pressure remains elevated and variable and will adjust and may need to add further medications. Review of systems: Constitutional: No reports of fatigue, fever, or chills Cardiovascular: No reports of chest pain or palpitations Respiratory: No reports of shortness of breath or cough GI: No reports of nausea, vomiting, or diarrhea, reports continuous feeling of constipation and having issues with her bowels : No reports of dysuria or retention Neurovascular: No reports of weakness or numbness All medications have been reviewed PHYSICAL EXAMINATION: Patient is lying in the bed, awake, mild acute distress, awake alert and oriented x 3, well-developed, obese, somewhat flat affect.. HEENT: Normocephalic. Neck is supple. Pupils reactive. Nostrils clear. Oral cavity is moist. Neck reveals no JVD, carotid bruits, or thyromegaly. CHEST EXAMINATION: Trachea is central. Symmetrical expansion. Lung hansen clear to auscultation and percussion. Left upper chest wall near the clavicle biopsy site with dressing that is dry and intact CARDIAC: S1, S2 are muffled ABDOMEN: Soft. Bowel sounds diminished and somewhat hypoactive. No organomegaly. No abdominal bruits. Tenderness on palpation Extremities: reveal no edema. No clubbing or cyanosis Neurologically awake, alert, oriented x2 to 3, no focal deficits noted Skin: No rash or skin lesions. Psychiatric: Cooperative. Non-suicidal, anxious. Musculoskeletal: No joint swelling or deformity. Normal range of motion. Assessment: Complex heterogeneous uterine mass with interval enlargement of lymphadenopathy and left pulmonary nodule, status post lymph node biopsy of the left supraclavicular adenopathy, biopsy report pending Intractable abdominal pain secondary to above Bilateral hydronephrosis, status post bilateral ureteral stent placement with urology, will need outpatient follow-up Hypothyroidism Osteoarthritis Obesity with a BMI of 35.3 Constipation, reports to having bowel issues for the last 1 to 2 months History of IBS DVT prophylaxis with heparin subcu GI prophylaxis Full code Plan: Patient will be continued on pain management with Toradol and IV Dilaudid. Ativan as needed for anxiety. Oncology following and patient underwent status post CT of the chest neck abdomen and pelvis which reveals a thickening of the area epiglottic folds with some asymmetric partial effacement of the left piriform sinus recommending direct visualization to exclude a mucosal lesion with left supraclavicular adenopathy measuring 4.2 x 1.9 cm. Chest shows multiple bilateral pulmonary nodules largest in the left upper lobe measuring 3.3 cm suggestive of metastatic disease largest 8 mm retrocrural lymph node. Imaging also suggestive of bilateral hydronephrosis and urology following underwent cystoscopy and bilateral stent placement 08/23/2024. Patient will need outpatient follow-up in 2 to 3 weeks Continue current pain regimen and adjust as needed Follow-up on repeat labs and replace electrolytes per protocol Continue lactulose as needed as patient has been refusing it as scheduled. Continue bowel regimen as needed and will add Dulcolax suppository Encouraged increase activity as tolerated Interventional radiology evaluated and is status post left supraclavicular abnormal adenopathy today 08/23/2024, biopsy pending and patient will follow-up with oncology Overall prognosis is guarded at this time The impression and plan of care has been dictated by Bela Mccollum, Nurse Practitioner as directed. Dr. Mitch MD I have performed a history and examination and MDM of this patient, discussed the same with the dictator, and agree with the dictator's assessment and plan as written ,documented as a scribe. Based on total visit time, I have performed more than 50% of the visit. Objective - Vital Signs Vital signs: Vital Signs Temp 97.8 F 08/25/24 07:51 Pulse 82 08/25/24 07:51 Resp 17 08/25/24 07:51 BP 132/69 08/25/24 07:51 Pulse Ox 97 08/25/24 07:51 FiO2 Intake & Output 05/16/25 05/17/25 05/17/25 18:59 06:59 18:59 Intake Total 1620 Balance 1620 Weight 82.1 kg Intake: Oral 1620 Other: Voiding Method Toilet Toilet # Voids 4 1 - Labs CBC & Chem 7: 08/24/24 06:07 08/24/24 06:07 Labs: Abnormal Lab Results - Last 24 Hours (Table) 08/24/24 08/24/24 Range/Units 06:07 06:07 WBC 17.07 H (4.50-10.00) X 10*3/uL RBC 3.37 L (4.10-5.20) X 10*6/uL Hgb 9.4 L (12.0-15.0) g/dL Hct 29.5 L (37.2-46.3) % MCHC 31.9 L (32.0-37.0) g/dL RDW 14.7 H (11.5-14.5) % Immature Gran # 0.32 H (0.00-0.04) X 10*3/uL Neutrophils # 13.82 H (1.80-7.70) X 10*3/uL Eosinophils # 0.36 H (0.04-0.35) X 10*3/uL Sodium 134 L (135-145) mmol/L Glucose 113 H (70-110) mg/dL Total Bilirubin <0.2 L (0.3-1.2) mg/dL AST 52 H (13-35) U/L Alkaline Phosphatase 153 H (41-126) U/L Albumin 3.6 L (3.8-4.9) g/dL Albumin/Globulin Ratio 1.24 L (1.60-3.17) Ratio
[2024-08-25 08:42] LABS: Basophils # (A) 0.09 10*3/uL (0.00-0.10); Basophils % (A) 0.7 %; Eosinophils # (A) 0.58 10*3/uL (0.04-0.35); Eosinophils % (A) 4.2 %; HCT 29.1 % (37.2-46.3); HGB 9.8 g/dL (12.0-15.0); Lymphocytes # (A) 1.79 10*3/uL (0.90-5.00); MCH 29.1 pg (27.0-32.0); MCHC 33.7 g/dL (32.0-37.0); MCV 86.4 fL (80.0-97.0); Mean Platelet Volume 9.7 fL (9.5-12.2); Monocytes # (A) 0.93 10*3/uL (0.20-1.00); Monocytes % (A) 6.7 %; Neutrophils # (A) 10.07 10*3/uL (1.80-7.70); Neutrophils % (A) 72.9 %; Platelet Count 388 10*3/uL (140-440); RBC 3.37 10*6/uL (4.10-5.20); RDW 14.6 % (11.5-14.5); WBC 13.81 10*3/uL (4.50-10.00)
[2024-08-25 08:46] LABS: ALT 31 U/L (4-34); AST 49 U/L (14-36); African American GFR (CKD) 89 (>60 ml/min/1.73 sqM); Albumin 3.6 g/dL (3.5-5.0); Albumin/Globulin Ratio 1.1; Alkaline Phosphatase 165 U/L (38-126); Anion Gap 10 mmol/L; Blood Urea Nitrogen 15 mg/dL (7-17); Calcium 9.7 mg/dL (8.4-10.2); Carbon Dioxide 22 mmol/L (22-30); Chloride 100 mmol/L (98-107); Globulin 3.3 g/dL; Glucose 82 mg/dL (74-99); Magnesium 1.6 mg/dL (1.6-2.3); Non-African American GFR(CKD) 78 (>60 ml/min/1.73 sqM); Potassium 4.2 mmol/L (3.5-5.1); Sodium 132 mmol/L (137-145); Total Bilirubin 0.6 mg/dL (0.2-1.3); Total Protein 6.9 g/dL (6.3-8.2)
--- NOTE | 2024-08-25 13:07 | P.PN ---
Subjective Progress Note Date: 08/25/24 Principal diagnosis: Hydronephrosis The patient underwent cystoscopy with bilateral ureteral stent insertion on August 23, 2024. Results of a supraclavicular lymph node biopsy are pending. She experienced mild bleeding and urethral irritation following cystoscopy, which she states has improved. Objective - Vital Signs Vital signs: Vital Signs Temp 97.8 F 08/25/24 07:51 Pulse 82 08/25/24 07:51 Resp 17 08/25/24 07:51 BP 132/69 08/25/24 07:51 Pulse Ox 97 08/25/24 07:51 FiO2 Intake & Output 08/24/24 08/25/24 08/25/24 18:59 06:59 18:59 Intake Total 1620 Balance 1620 Weight 82.1 kg Intake: Oral 1620 Other: Voiding Method Toilet Toilet # Voids 4 1 - Constitutional General appearance: Present: average body habitus, cooperative, no acute distress - Psychiatric Psychiatric: Present: A&O x's 3 - Labs CBC & Chem 7: 08/25/24 07:04 08/25/24 07:04 Labs: Abnormal Lab Results - Last 24 Hours (Table) 08/25/24 08/25/24 Range/Units 07:04 07:04 WBC 13.81 H (4.50-10.00) 10*3/uL RBC 3.37 L (4.10-5.20) 10*6/uL Hgb 9.8 L (12.0-15.0) g/dL Hct 29.1 L (37.2-46.3) % RDW 14.6 H (11.5-14.5) % Immature Gran # 0.35 H (0.00-0.04) 10*3/uL Neutrophils # 10.07 H (1.80-7.70) 10*3/uL Eosinophils # 0.58 H (0.04-0.35) 10*3/uL Sodium 132 L (137-145) mmol/L AST 49 H (14-36) U/L Alkaline Phosphatase 165 H (38-126) U/L Assessment and Plan (1) Bilateral hydronephrosis Current Visit: Yes Status: Acute Priority: High Code(s): N13.30 - UNSPECIFIED HYDRONEPHROSIS SNOMED Code(s): 78108629 Plan: I explained to the patient that her ureteral stents will need to be removed or exchanged within 3 months. It is likely she will require chemotherapy, and the stents will help to preserve her renal function. She will follow-up with me as an outpatient in 6 weeks. Please notify me if I can be of any further assistance during this hospitalization.
--- NOTE | 2024-08-26 10:37 | P.PN ---
Subjective Progress Note Date: 08/25/24 Patient is a 63-year-old female with a known history of hypothyroidism, osteoarthritis, IBS and recent diagnosis of concern for uterine cancer presents to ER with complaints of abdominal pain. Patient has been having uncontrolled abdominal pain and presented to ER few times. Patient states that she has history of IBS and has been having issues with constipation. Denied any fever or chills. No nausea or vomiting. No complaints of chest pain or shortness of breath. KUB x-ray showed nonspecific bowel gas pattern without radiographic evidence for acute process Renal ultrasound showed mild right hydronephrosis and mild dilation of the left renal collecting system findings suspicious for obstructive uropathy possibly due to pelvic uterine mass. Heterogenous uterus which demonstrated evidence of malignancy on prior CT 430 CT of the abdomen pelvis showed bilateral hydronephrosis secondary to complex heterogenous uterine mass with interval enlargement of lymphadenopathy and left pulmonary nodule. Findings compatible with progression of the disease over has a short time span suggest aggressive malignancy. 08/22/2024 Patient is seen in follow-up today reporting continued feelings of constipation and abdominal fullness with pain with medications currently being adjusted with oncology following as they have been consulted for a large pelvic uterine mass. Patient also noted to have significant bilateral hydronephrosis secondary to this mass and urology has been consulted. Patient reports she does have history of IBS but has been having issues with constipation over the last 1 to 2 months. Patient reports her appetite is poor and dependent on if she has had bowel movements and has noticed weight loss over the last few months. Patient is currently afebrile with no reports of chest pain or shortness of breath. Patient denies nausea or vomiting and reports his not eating very much 08/23/2024 Patient is seen in follow-up today with multiple consultations including oncology and urology following and patient is scheduled to undergo cystoscopy with possible bilateral ureteral stent placement for bilateral hydronephrosis. Patient was started on bowel regimen including lactulose although is refusing and no bowel movement reported. Patient is lethargic and recently just came back from lymph node biopsy which is pending at this time. Patient did undergo MRI of the brain which was negative for any acute changes and no lesions noted. Encourage increase activity as tolerated and will continue with current pain regimen and encouraged bowel regimen as well. 08/24/2024 Patient is seen and evaluated in follow-up this morning is status post bilateral stent placement with urology maintained on gentle hydration and reports continued surgical site pain and discomfort and when voiding is extremely uncomfortable. Patient also with continued constipation was attempting lac tulose although not tolerating much making her nauseated. Will add Dulcolax suppository and recommend to continue until having bowel movements. Patient is fearful of bearing down with the continued pain. Continue with pain regimen and will adjust accordingly. Encouraged increase activity as tolerated as patient reports she would like to go home soon and discussing possible discharge home in 24 hours although would recommend having bowel movements prior to discharge. Plan will be for outpatient follow-up with oncology and currently awaiting biopsy report. White count is elevated at 17.07 with a hemoglobin of 9.4, platelets are 377. Blood pressure remains elevated and variable and will adjust and may need to add further medications. 08/25/2024 Patient is seen in follow-up today continues to have no bowel movements with some abdominal discomfort and not much of an appetite although is eating with no reported nausea or vomiting. Pain control is more manageable on current regimen with oncology adjustments and will continue. Continued with scheduled bowel regimen as well as as needed and encourage increase activity as tolerated. Patient is voiding status post stent placements bilaterally and reports pain has lessened in intensity. Pathology still pending on biopsy at this time. Review of systems: Constitutional: No reports of fatigue, fever, or chills Cardiovascular: No reports of chest pain or palpitations Respiratory: No reports of shortness of breath or cough GI: No reports of nausea, vomiting, or diarrhea, reports continuous feeling of constipation and having issues with her bowels : No reports of dysuria or retention Neurovascular: No reports of weakness or numbness All medications have been reviewed PHYSICAL EXAMINATION: Patient is lying in the bed, awake, no acute distress, awake alert and oriented x 3, well-developed, obese, somewhat flat affect.. HEENT: Normocephalic. Neck is supple. Pupils reactive. Nostrils clear. Oral cavity is moist. Neck reveals no JVD, carotid bruits, or thyromegaly. CHEST EXAMINATION: Trachea is central. Symmetrical expansion. Lung hansen clear to auscultation and percussion. Left upper chest wall near the clavicle biopsy site with dressing that is dry and intact CARDIAC: S1, S2 are muffled ABDOMEN: Soft. Bowel sounds diminished and somewhat hypoactive. No organomegaly. No abdominal bruits. Tenderness on palpation Extremities: reveal no edema. No clubbing or cyanosis Neurologically awake, alert, oriented x2 to 3, no focal deficits noted Skin: No rash or skin lesions. Psychiatric: Cooperative. Non-suicidal, anxious. Musculoskeletal: No joint swelling or deformity. Normal range of motion. Assessment: Complex heterogeneous uterine mass with interval enlargement of lymphadenopathy and left pulmonary nodule, status post lymph node biopsy of the left supraclavicular adenopathy, biopsy report pending Intractable abdominal pain secondary to above Bilateral hydronephrosis, status post bilateral ureteral stent placement with urology, will need outpatient follow-up Hypothyroidism Osteoarthritis Obesity with a BMI of 35.3 Constipation, reports to having bowel issues for the last 1 to 2 months History of IBS DVT prophylaxis with heparin subcu GI prophylaxis Full code Plan: Patient will be continued on pain management with Toradol and IV Dilaudid. Ativan as needed for anxiety. Oncology following and patient underwent status post CT of the chest neck abdomen and pelvis which reveals a thickening of the area epiglottic folds with some asymmetric partial effacement of the left piriform sinus recommending direct visualization to exclude a mucosal lesion with left supraclavicular adenopathy measuring 4.2 x 1.9 cm. Chest shows multiple bilateral pulmonary nodules largest in the left upper lobe measuring 3.3 cm suggestive of metastatic disease largest 8 mm retrocrural lymph node. Imaging also suggestive of bilateral hydronephrosis and urology following underwent cystoscopy and bilateral stent placement 08/23/2024. Patient will need outpatient follow-up in 2 to 3 weeks. Continue monitoring output Continue current pain regimen and adjust as needed. Oncology has made some adjustments and patient reports improvements been pain management. Follow-up on repeat labs and replace electrolytes per protocol Continue lactulose as needed as well as continue bowel regimen scheduled with daily Dulcolax suppository Encouraged increase activity as tolerated. Encouraged walking more frequently Interventional radiology has evaluated and is status post left supraclavicular abnormal adenopathy 08/23/2024, biopsy pending and patient will follow-up with oncology Overall prognosis is guarded at this time The impression and plan of care has been dictated as a scribe by Bela Mccollum, Nurse Practitioner as directed. Dr. Mitch MD I have performed a history and examination and MDM of this patient, discussed the same with the dictator, and agree with the dictator's assessment and plan as written ,documented as a scribe. Based on total visit time, I have performed more than 50% of the visit. Objective - Vital Signs Vital signs: Vital Signs Temp 97.8 F 08/26/24 08:00 Pulse 85 08/26/24 08:00 Resp 16 08/26/24 08:00 BP 120/67 08/26/24 08:00 Pulse Ox 95 08/26/24 08:00 FiO2 Intake & Output 08/25/24 08/26/24 08/26/24 18:59 06:59 18:59 Intake Total 1200 Balance 1200 Intake: Oral 1200 Other: Voiding Method Toilet # Voids 3 2 # Bowel Movements 0 - Labs CBC & Chem 7: 08/25/24 07:04 08/25/24 07:04
[2024-08-26] MEDS: NA PHOS,M-B/NA PHOS,DI-BA 133 ML ENEMA RECTAL STA (13:41)
--- NOTE | 2024-08-26 15:37 | P.PN ---
Subjective Progress Note Date: 08/26/24 Principal diagnosis: Suspected metastatic uterine cancer - Afebrile, no acute events overnight - Notes having constipation, leading to abdominal pain, but was in the process of having bowel movement with enema - She otherwise denies any new signs or symptoms Objective - Vital Signs Vital signs: Vital Signs Temp 98 F 08/26/24 12:52 Pulse 87 08/26/24 12:52 Resp 17 08/26/24 12:52 BP 115/59 08/26/24 12:52 Pulse Ox 94 L 08/26/24 12:52 FiO2 Intake & Output 08/25/24 08/26/24 08/26/24 18:59 06:59 18:59 Intake Total 1200 680 Balance 1200 680 Intake: Oral 1200 680 Other: Voiding Method Toilet Toilet # Voids 3 2 2 # Bowel Movements 0 - Constitutional General appearance: Present: cooperative, no acute distress - EENT Eyes: Present: EOMI - Neck Details: Left supraclavicular Neck: Present: lymphadenopathy - Respiratory Details: Nonlabored breathing - Cardiovascular Details: Warm and well-perfused - Gastrointestinal General gastrointestinal: Present: distended, soft - Integumentary Integumentary: Absent: rash - Neurologic Neurologic: Present: CNII-XII intact. Absent: focal deficits - Labs CBC & Chem 7: 08/25/24 07:04 08/25/24 07:04 Assessment and Plan (1) Bilateral hydronephrosis Current Visit: Yes Status: Acute Priority: High Code(s): N13.30 - UNSPECIFIED HYDRONEPHROSIS SNOMED Code(s): 24430696 (2) Cancer associated pain Current Visit: Yes Status: Acute Code(s): G89.3 - NEOPLASM RELATED PAIN (ACUTE) (CHRONIC) SNOMED Code(s): 97199759628394 (3) Mass of uterine adnexa Current Visit: Yes Status: Acute Priority: High Code(s): N94.89 - OTH COND ASSOC W FEMALE GENITAL ORGANS AND MENSTRUAL CYCLE SNOMED Code(s): 536846358 Plan: Uterine mass, lymphadenopathy, pulmonary nodules -As stated in HPI, all previous imaging imaging has been reviewed. Findings concerning for a primary [employer] malignancy with metastatic disease to lymph nodes in the lungs. -Patient is symptomatic with difficulty having bowel movements as well as emptying the bladder with bilateral hydroneprhosis noted -CT of the chest and neck has been ordered for fullness noted on exam in the right supraclavicular area. Scan showed thickening of the aryepiglottic folds with some asymmetric partial effacement of the left pyriform sinus. Left super clavicular adenopathy measuring 4.2 x 1.9 cm. Multiple bilateral pulmonary nodules largest measuring 3.3 cm. Possible enlarged 8 mm retrocrural lymph node -Underwent bilateral ureteral stent placement and left supraclavicular lymph node biopsy on 08/23/2024 -Pathology is still pending with CA125 at 39.6 -Morphine 15 mg extended release was started on 08/23/2024 and notes improved pain, but was having persistent constipation despite bowel regimen and received enema today -We will maintain persistent bowel regimen to help avoid opioid-induced constipation -We discussed following up on final results of pathology before determining definitive treatment plan -If this is in fact uterine cancer, we did discuss chemotherapy while sending off additional information on NGS/PD-L1 to see if she would be a candidate for regimen such as pembrolizumab/lenvatinib Piedad Aponte MD
--- NOTE | 2024-08-26 22:42 | P.PN ---
Subjective Progress Note Date: 08/26/24 Patient is a 63-year-old female with a known history of hypothyroidism, osteoarthritis, IBS and recent diagnosis of concern for uterine cancer presents to ER with complaints of abdominal pain. Patient has been having uncontrolled abdominal pain and presented to ER few times. Patient states that she has history of IBS and has been having issues with constipation. Denied any fever or chills. No nausea or vomiting. No complaints of chest pain or shortness of breath. KUB x-ray showed nonspecific bowel gas pattern without radiographic evidence for acute process Renal ultrasound showed mild right hydronephrosis and mild dilation of the left renal collecting system findings suspicious for obstructive uropathy possibly due to pelvic uterine mass. Heterogenous uterus which demonstrated evidence of malignancy on prior CT 430 [address] of the abdomen pelvis showed bilateral hydronephrosis secondary to complex heterogenous uterine mass with interval enlargement of lymphadenopathy and left pulmonary nodule. Findings compatible with progression of the disease over has a short time span suggest aggressive malignancy. 08/22/2024 Patient is seen in follow-up today reporting continued feelings of constipation and abdominal fullness with pain with medications currently being adjusted with oncology following as they have been consulted for a large pelvic uterine mass. Patient also noted to have significant bilateral hydronephrosis secondary to this mass and urology has been consulted. Patient reports she does have history of IBS but has been having issues with constipation over the last 1 to 2 months. Patient reports her appetite is poor and dependent on if she has had bowel movements and has noticed weight loss over the last few months. Patient is currently afebrile with no reports of chest pain or shortness of breath. Patient denies nausea or vomiting and reports his not eating very much 08/23/2024 Patient is seen in follow-up today with multiple consultations including oncology and urology following and patient is scheduled to undergo cystoscopy with possible bilateral ureteral stent placement for bilateral hydronephrosis. Patient was started on bowel regimen including lactulose although is refusing and no bowel movement reported. Patient is lethargic and recently just came back from lymph node biopsy which is pending at this time. Patient did undergo MRI of the brain which was negative for any acute changes and no lesions noted. Encourage increase activity as tolerated and will continue with current pain regimen and encouraged bowel regimen as well. 08/24/2024 Patient is seen and evaluated in follow-up this morning is status post bilateral stent placement with urology maintained on gentle hydration and reports continued surgical site pain and discomfort and when voiding is extremely uncomfortable. Patient also with continued constipation was attempting lac tulose although not tolerating much making her nauseated. Will add Dulcolax suppository and recommend to continue until having bowel movements. Patient is fearful of bearing down with the continued pain. Continue with pain regimen and will adjust accordingly. Encouraged increase activity as tolerated as patient reports she would like to go home soon and discussing possible discharge home in 24 hours although would recommend having bowel movements prior to discharge. Plan will be for outpatient follow-up with oncology and currently awaiting biopsy report. White count is elevated at 17.07 with a hemoglobin of 9.4, platelets are 377. Blood pressure remains elevated and variable and will adjust and may need to add further medications. 08/25/2024 Patient is seen in follow-up today continues to have no bowel movements with some abdominal discomfort and not much of an appetite although is eating with no reported nausea or vomiting. Pain control is more manageable on current regimen with oncology adjustments and will continue. Continued with scheduled bowel regimen as well as as needed and encourage increase activity as tolerated. Patient is voiding status post stent placements bilaterally and reports pain has lessened in intensity. Pathology still pending on biopsy at this time. 08/26/2024 Patient is seen in follow-up today with urology, oncology following closely. Pathology remains pending on the lymph node biopsy and will continue with current regimen. Patient continues to be constipated and will continue current scheduled regimen and recommend Fleet enema. Encouraged increase activity as tolerated with walking frequently. Patient is afebrile with no reports of chest pain or shortness of breath. Not much of an appetite but is tolerating some diet. Continue with current regimen of pain management per oncology. Awaiting final pathology to discuss further treatment plan moving forward. Patient will need outpatient follow-up with urology and continue with bilateral stents. Review of systems: Constitutional: No reports of fatigue, fever, or chills Cardiovascular: No reports of chest pain or palpitations Respiratory: No reports of shortness of breath or cough GI: No reports of nausea, vomiting, or diarrhea, reports continuous feeling of constipation and having issues with her bowels : No reports of dysuria or retention Neurovascular: No reports of weakness or numbness All medications have been reviewed PHYSICAL EXAMINATION: Patient is lying in the bed, awake, no acute distress, awake alert and oriented x 3, well-developed, obese, somewhat flat affect.. HEENT: Normocephalic. Neck is supple. Pupils reactive. Nostrils clear. Oral cavity is moist. Neck reveals no JVD, carotid bruits, or thyromegaly. CHEST EXAMINATION: Trachea is central. Symmetrical expansion. Lung hansen clear to auscultation and percussion. Left upper chest wall near the clavicle biopsy site with dressing that is dry and intact CARDIAC: S1, S2 are muffled ABDOMEN: Soft. Bowel sounds diminished and somewhat hypoactive. No organomegaly. No abdominal bruits. Tenderness on palpation Extremities: reveal no edema. No clubbing or cyanosis Neurologically awake, alert, oriented x2 to 3, no focal deficits noted Skin: No rash or skin lesions. Psychiatric: Cooperative. Non-suicidal, anxious. Musculoskeletal: No joint swelling or deformity. Normal range of motion. Assessment: Complex heterogeneous uterine mass with interval enlargement of lymphadenopathy and left pulmonary nodule, status post lymph node biopsy of the left supraclavicular adenopathy, biopsy report pending Intractable abdominal pain secondary to above Bilateral hydronephrosis, status post bilateral ureteral stent placement with urology, will need outpatient follow-up Hypothyroidism Osteoarthritis Obesity with a BMI of 35.3 Constipation, reports to having bowel issues for the last 1 to 2 months History of IBS DVT prophylaxis with heparin subcu GI prophylaxis Full code Plan: Patient will be continued on pain management per oncology and being adjusted. Ativan as needed for anxiety. Oncology following and patient underwent status post CT of the chest neck abdomen and pelvis which reveals a thickening of the area epiglottic folds with some asymmetric partial effacement of the left piriform sinus recommending direct visualization to exclude a mucosal lesion with left supraclavicular adenopathy measuring 4.2 x 1.9 cm. Chest shows multiple bilateral pulmonary nodules largest in the left upper lobe measuring 3.3 cm suggestive of metastatic disease largest 8 mm retrocrural lymph node. Imaging also suggestive of bilateral hydronephrosis and urology following underwent cystoscopy and bilateral stent placement 08/23/2024. Patient will need outpatient follow-up in 3 months for possible exchange of stents. Continue monitoring output Continue current pain regimen and adjust as needed. Oncology has made some adjustments and patient reports improvements been pain management. Follow-up on repeat labs and replace electrolytes per protocol Continue lactulose as needed as well as continue bowel regimen scheduled with daily Dulcolax suppository. Continue no relief from constipation and agreeable to Fleet enema. Encouraged increase activity as tolerated. Encouraged walking more frequently Interventional radiology has evaluated and is status post left supraclavicular abnormal adenopathy 08/23/2024, biopsy pending and patient will follow-up with oncology Overall prognosis is guarded at this time Possible discharge planning once patient is having bowel movements and pain is under control. The impression and plan of care has been dictated as a scribe by Bela Mccollum, Nurse Practitioner as directed. Dr. Mitch MD I have performed a history and examination and MDM of this patient, discussed the same with the dictator, and agree with the dictator's assessment and plan as written ,documented as a scribe. Based on total visit time, I have performed more than 50% of the visit. Objective - Vital Signs Vital signs: Vital Signs Temp 97.8 F 08/26/24 08:00 Pulse 85 08/26/24 08:00 Resp 16 08/26/24 08:00 BP 120/67 08/26/24 08:00 Pulse Ox 95 08/26/24 08:00 FiO2 Intake & Output 08/25/24 08/26/24 08/26/24 18:59 06:59 18:59 Intake Total 1200 Balance 1200 Intake: Oral 1200 Other: Voiding Method Toilet # Voids 3 2 # Bowel Movements 0 - Labs CBC & Chem 7: 08/25/24 07:04 08/25/24 07:04
[2024-08-27 07:47] VITALS: RESP 18
[2024-08-27 08:35] LABS: ALT 31 U/L (8-44); AST 57 U/L (13-35); Albumin 3.5 g/dL (3.8-4.9); Albumin/Globulin Ratio 1.17 Ratio (1.60-3.17); Alkaline Phosphatase 186 U/L (41-126); BUN/Creat Ratio 19.12 Ratio (12.00-20.00); Blood Urea Nitrogen 15.3 mg/dL (9.0-27.0); Calcium 9.6 mg/dL (8.7-10.3); Carbon Dioxide 21.5 mmol/L (21.6-31.8); Chloride 101 mmol/L (96-109); Glucose 73 mg/dL (70-110); Magnesium 1.8 mg/dL (1.5-2.4); Potassium 4.7 mmol/L (3.5-5.5); Sodium 135 mmol/L (135-145); Total Bilirubin 0.2 mg/dL (0.3-1.2); Total Protein 6.5 g/dL (6.2-8.2)
[2024-08-27 09:34] LABS: Basophils # (A) 0.12 X 10*3/uL (0.00-0.10); Basophils % (A) 0.8 %; Eosinophils # (A) 0.47 X 10*3/uL (0.04-0.35); Eosinophils % (A) 3.2 %; HCT 30.9 % (37.2-46.3); Lymphocytes # (A) 2.14 X 10*3/uL (0.90-5.00); Lymphocytes % (A) 14.8 %; MCH 28.7 pg (27.0-32.0); MCHC 32.4 g/dL (32.0-37.0); MCV 88.8 FL (80.0-97.0); Monocytes # (A) 1.13 X 10*3/uL (0.20-1.00); Monocytes % (A) 7.8 %; NRBC Per 100 WBC 0 X 10*3/uL (0.00-0.01); Neutrophils # (A) 10.18 X 10*3/uL (1.80-7.70); Neutrophils % (A) 70.2 %; Platelet Count 405 X 10*3/uL (140-440); RBC 3.48 X 10*6/uL (4.10-5.20)
[2024-08-27 14:03] VITALS: BP 114/65; PULSE 93; TEMP 98.3
--- NOTE | 2024-08-31 00:40 | P.DS ---
Providers Date of admission: 08/20/24 22:22 Expected date of discharge: 08/27/24 Attending physician: Hernandez Pritchard Consults: 08/20/24 22:19 Consult Physician Routine Consulting Provider: Chucho Pineda Consult Reason/Comments: known Do you want consulting provider notified?: Yes 08/21/24 13:04 Consult Physician Routine Consulting Provider: Piedad Aponte Consult Reason/Comments: malignancy?? mass with poss mets Do you want consulting provider notified?: Yes 08/22/24 10:29 Consult Physician Routine Consulting Provider: Dung Shane Consult Reason/Comments: anuria, bilateral hydronephrosis Do you want consulting provider notified?: Yes Primary care physician: Jennifer Navas Hospital Course: Final diagnosis Complex heterogeneous uterine mass with interval enlargement of lymphadenopathy and left pulmonary nodule, status post lymph node biopsy of the left supraclavicular adenopathy, biopsy report pending Intractable abdominal pain secondary to above Bilateral hydronephrosis, status post bilateral ureteral stent placement with urology, will need outpatient follow-up Hypothyroidism Osteoarthritis Obesity with a BMI of 35.3 Constipation, reports to having bowel issues for the last 1 to 2 months History of IBS DVT prophylaxis with heparin subcu GI prophylaxis Full code Discharge disposition Patient is being discharged in a stable condition with guarded prognosis to home. Patient will follow-up with Dr. Navas in the outpatient setting upon discharge. Patient is to continue with current medications and bowel regimen and outpatient follow-up with oncology as scheduled. Total time taken is greater than 35 minutes. Hospital course This is a 63-year-old female who was recently admitted with abdominal pain and significant constipation with a complex heterogenous uterine mass noted on imaging and is status post lymph node biopsy of the left supraclavicular adenopathy which is pending being followed by oncology. Plan will be for outpatient follow-up once biopsy report is obtained to discuss treatment options. Patient also noted with significant bilateral hydronephrosis and is status post ureteral stent placement with urology and will be following up outpatient. Patient eventually had a large bowel movement reported to feeling slightly better and would recommend bowel regimen scheduled as well as as needed. Patient does have history of IBS as well. Patient will be going home today. Please refer to other consultation notes for further HPI. Currently no reports of chest pain, shortness of breath, or palpitations. Patient is afebr ile. No reports of nausea or vomiting and patient is tolerating diet. Patient will be going home today. Overall guarded prognosis. Physical exam: Gen: This is a 63-year-old female who is awake, alert and oriented x 3, well- developed, obese HEENT: Head is atraumatic, normocephalic. Pupils equal, round. Sclerae is anicteric. NECK: Supple. No JVD. No lymphadenopathy. No thyromegaly. LUNGS: Diminished breath sounds bilaterally otherwise clear to auscultation. No wheezes or rhonchi. No intercostal retractions. HEART: S1, S2 are muffled ABDOMEN: Soft. Obese bowel sounds are present. Less distended no masses. No tenderness. EXTREMITIES: No pedal edema. No calf tenderness. NEUROLOGICAL: Patient is awake, alert and oriented x3. Cranial nerves 2 through 12 are grossly intact. Please refer to medication reconciliation sheet for a list of medications. The impression and plan of care has been dictated by Bela Mccollum, Nurse Practitioner as directed. Dr. Macho MD I have performed a history and examination and MDM of this patient, discussed the same with the dictator, and agree with the dictator's assessment and plan as written ,documented as a scribe. Based on total visit time, I have performed more than 50% of the visit. Patient Condition at Discharge: Fair Plan - Discharge Summary Discharge Rx Participant: No New Discharge Prescriptions: New Lactulose [Cephulac] 20 gm PO BID PRN #360 ml PRN Reason: Constipation Docusate [Colace] 100 mg PO BID #60 cap Losartan [Cozaar] 50 mg PO DAILY #30 tab bisacodyL [Dulcolax] 10 mg RECTAL DAILY #30 suppositor Morphine Sulfate ER [Ms Contin] 15 mg PO Q12HR tab amLODIPine [Norvasc] 10 mg PO DAILY #30 tab Continue Levothyroxine Sodium [Levoxyl] 100 mcg PO DAILY Sertraline [Zoloft] 50 mg PO DAILY Ketorolac [Toradol] 10 mg PO Q8HR #15 tab Ondansetron Odt [Zofran ODT] 4 mg PO Q8HR PRN #10 tab PRN Reason: Nausea Multivitamins, Thera [Multivitamin (formulary)] 1 tab PO DAILY Discharge Medication List Levothyroxine Sodium [Levoxyl] 100 mcg PO DAILY 09/13/16 [History] Sertraline [Zoloft] 50 mg PO DAILY 09/13/16 [History] Ketorolac [Toradol] 10 mg PO Q8HR #15 tab 08/15/24 [Rx] Ondansetron Odt [Zofran ODT] 4 mg PO Q8HR PRN #10 tab 08/15/24 [Rx] Multivitamins, Thera [Multivitamin (formulary)] 1 tab PO DAILY 08/21/24 [History] Docusate [Colace] 100 mg PO BID #60 cap 08/27/24 [Rx] Lactulose [Cephulac] 20 gm PO BID PRN #360 ml 08/27/24 [Rx] Losartan [Cozaar] 50 mg PO DAILY #30 tab 08/27/24 [Rx] Morphine Sulfate ER [Ms Contin] 15 mg PO Q12HR tab 08/27/24 [Rx] amLODIPine [Norvasc] 10 mg PO DAILY #30 tab 08/27/24 [Rx] bisacodyL [Dulcolax] 10 mg RECTAL DAILY #30 suppositor 08/27/24 [Rx] Follow up Appointment(s)/Referral(s): Chuy Alfredo [STAFF PHYSICIAN] - 08/29/24 1:00 pm Dung Shane MD [STAFF PHYSICIAN] - 6 Weeks (The office will call you with a follow up date and time.) Jennifer Navas MD [Primary Care Provider] - 08/30/24 10:40 am Patient Instructions/Handouts: Laxative, Stool Softeners (By mouth), Lactulose (By mouth), Amlodipine (By mouth), Losartan (By mouth), Laxatives, Stimulant (Into the rectum) Activity/Diet/Wound Care/Special Instructions: Activity limited until follow-up Follow-up with primary care provider on discharge Follow-up with urology outpatient Follow-up with oncology outpatient Continue with bowel regimen scheduled as well as as needed Continue taking medications as prescribed Discharge Disposition: HOME SELF-CARE
== END 2024-08-27 15:32 | disposition home or self-care (01) | DRG 530 ==
LOC: EC 16:28 → 5NMEDONC 22:21 → OBSVTOIN 22:22 → 5NMEDONC 08-21 01:01
PROVIDERS: ADMIT Hospitalist; ATTEND Hospitalist
PROC: BT141ZZ Fluoroscopy of Kidneys, Ureters and Bladder using Low Osmolar Contrast (ICD-10-PCS; principal; 2024-08-23 09:05)
PROC: 0T788DZ Dilation of Bilateral Ureters with Intraluminal Device, Via Natural or Artificial Opening Endoscopic (ICD-10-PCS; principal; 2024-08-23 09:05)
PROC: 07B23ZX Excision of Left Neck Lymphatic, Percutaneous Approach, Diagnostic (ICD-10-PCS; 2024-08-23 09:05)
DX: C55 Malignant neoplasm of uterus, part unspecified (principal); C77.0 Secondary and unspecified malignant neoplasm of lymph nodes of head, face and neck; N13.1 Hydronephrosis with ureteral stricture, not elsewhere classified; G89.3 Neoplasm related pain (acute) (chronic); E03.9 Hypothyroidism, unspecified; E66.9 Obesity, unspecified; Z68.35 Body mass index [BMI] 35.0-35.9, adult; R34 Anuria and oliguria; K58.1 Irritable bowel syndrome with constipation; R91.1 Solitary pulmonary nodule; F32.A Depression, unspecified; M19.90 Unspecified osteoarthritis, unspecified site; N36.8 Other specified disorders of urethra; Z79.890 Hormone replacement therapy; Z79.899 Other long term (current) drug therapy; Z87.440 Personal history of urinary (tract) infections; Z87.442 Personal history of urinary calculi; Z71.3 Dietary counseling and surveillance; Z88.5 Allergy status to narcotic agent; Z88.2 Allergy status to sulfonamides; Z91.040 Latex allergy status
CPT/HCPCS: 36415; 38505; 51798; 70491; 70553; 71260; 74018; 74177; 76770; 76942; 80048; 80053; 81003; 82150; 83605; 83690; 83735; 85025; 85610; 85730; 86304; 87636; 88305; 88341; 88342; 96361; 96374; 96375; 96376; 99285

== ENCOUNTER 2024-10-14 11:46 | Inpatient (IN) | payer OTHER ==
--- NOTE | 2024-10-14 12:43 | ED ---
General Adult HPI - General Chief complaint: Nausea/Vomiting/Diarrhea Stated complaint: Vomiting Time Seen by Provider: 10/14/24 12:05 Source: patient, RN notes reviewed, old records reviewed Mode of arrival: ambulatory Limitations: no limitations - History of Present Illness Initial comments: This is a 63-year-old female who presents to the emergency department patient states she is being treated with radiation for uterine cancer. Patient states she has metastatic disease to lung and lymph nodes. Patient states she started vomiting for 2 days and cannot keep anything down at this point. Patient states she has vomited her Zofran out. Patient denies any fever or chills. Patient denies any chest pain difficulty breathing shortness of breath - Related Data Home Medications Medication Instructions Recorded Confirmed Levothyroxine Sodium [Levoxyl] 100 mcg PO DAILY 09/13/16 08/21/24 Sertraline [Zoloft] 50 mg PO DAILY 09/13/16 08/21/24 Multivitamins, Thera [Multivitamin 1 tab PO DAILY 08/21/24 08/21/24 (formulary)] Previous Rx's Medication Instructions Recorded Ketorolac [Toradol] 10 mg PO Q8HR #15 tab 08/15/24 Ondansetron Odt [Zofran ODT] 4 mg PO Q8HR PRN #10 tab 08/15/24 Docusate [Colace] 100 mg PO BID #60 cap 08/27/24 Lactulose [Cephulac] 20 gm PO BID PRN #360 ml 08/27/24 Losartan [Cozaar] 50 mg PO DAILY #30 tab 08/27/24 Morphine Sulfate ER [Ms Contin] 15 mg PO Q12HR tab 08/27/24 amLODIPine [Norvasc] 10 mg PO DAILY #30 tab 08/27/24 bisacodyL [Dulcolax] 10 mg RECTAL DAILY #30 suppositor 08/27/24 Allergies Allergy/AdvReac Type Severity Reaction Status Date / Time latex Allergy Rash/Hives Verified 10/14/24 12:07 Sulfa (Sulfonamide Allergy Rash/Hives Verified 10/14/24 12:07 Antibiotics) tramadol Allergy Rash/Hives Verified 10/14/24 12:07 hydromorphone [From Dilaudid] AdvReac Nausea & Verified 10/14/24 12:07 Vomiting Review of Systems ROS Statement: Those systems with pertinent positive or pertinent negative responses have been documented in the HPI. ROS Other: All systems not noted in ROS Statement are negative. Past Medical History Past Medical History: Thyroid Disorder Additional Past Medical History / Comment(s): IRRITABLE BOWEL SYNDROME History of Any Multi-Drug Resistant Organisms: None Reported Past Surgical History: Cholecystectomy Additional Past Surgical History / Comment(s): CARPAL TUNNEL SURGERY, gallbladder removal Past Anesthesia/Blood Transfusion Reactions: Postoperative Nausea & Vomiting (PONV) Past Psychological History: No Psychological Hx Reported Smoking Status: Never smoker Past Alcohol Use History: None Reported Past Drug Use History: None Reported - Past Family History Father History Unknown: Yes Family Medical History: Diabetes Mellitus, Renal Disease Mother Family Medical History: CVA/TIA General Exam - General Exam Comments Initial Comments: GENERAL: Patient is well-developed and well-nourished. Patient is nontoxic and well- hydrated and is in mild distress. ENT: Neck is soft and supple. No significant lymphadenopathy is noted. Oropharynx is clear. Moist mucous membranes. Neck has full range of motion without eliciting any pain. EYES: The sclera were anicteric and conjunctiva were pink and moist. Extraocular movements were intact and pupils were equal round and reactive to light. Eyelids were unremarkable. PULMONARY: Unlabored respirations. Good breath sounds bilaterally. No audible rales rhonc hi or wheezing was noted. CARDIOVASCULAR: There is a regular rate and rhythm without any murmurs gallops or rubs. ABDOMEN: Mild abdominal tenderness in the lower abdomen SKIN: Skin is clear with no lesions or rashes and otherwise unremarkable. NEUROLOGIC: Patient is alert and oriented x3. Cranial nerves II through XII are grossly intact. Motor and sensory are also intact. Normal speech, volume and content. Symmetrical smile. MUSCULOSKELETAL: Normal extremities with adequate strength and full range of motion. LYMPHATICS: No significant lymphadenopathy is noted PSYCHIATRIC: Normal psychiatric evaluation. Limitations: no limitations Course Vital Signs 10/14/24 10/14/24 12:03 12:22 Temperature 97.8 F 97.8 F Pulse Rate 93 85 Respiratory 18 18 Rate Blood Pressure 86/53 132/71 O2 Sat by Pulse 98 97 Oximetry Medical Decision Making - Medical Decision Making Was pt. sent in by a medical professional or institution (, PA, BEEF SPECIALIST, urgent care, hospital, or usp...) When possible be specific @ -No Did you speak to anyone other than the patient for history (EMS, parent, family, police, friend...)? What history was obtained from this source @ -No Did you review nursing and triage notes (agree or disagree)? Why? @ -I reviewed and agree with nursing and triage notes Were old charts reviewed (outside hosp., previous admission, EMS record, old EKG, old radiological studies, urgent care reports/EKG's, usp records)? Report findings @ -No old charts were reviewed Differential Diagnosis? @ -Differential Abdominal Pain Women: Appendicitis, Cholecystitis, diverticulosis, uterine cancer, ischemic bowel, pancreatitis, hepatitis, UTI, gastroenteritis, AAA, incarcerated hernia, bowel obstruction, constipation, inflammatory bowel, hepatitis, peptic ulcer disease, splenic infarction, perforated viscus, vulvitis, ovarian torsion, PID, kidney stone, placenta abruption, this is not meant to be an all-inclusive list EKG interpreted by me (3pts min.). @ -As above X-rays interpreted by me (1pt min.). @ -None done CT interpreted by me (1pt min.). @ -None done U/S interpreted by me (1pt. min.). @ -Ultrasound showed no significant gallbladder abnormalities What testing was considered but not performed or refused? (CT, X-rays, U/S, labs)? Why? @ -None What meds were considered but not given or refused? Why? @ -None Did you discuss the management of the patient with other professionals (professionals i.e. , PA, BEEF SPECIALIST, lab, RT, psych nurse, social service agency director, ground nuclear weapons assembly officer, teacher, corporate trust officer, keycase assembler)? Give summary @ -[facility] the patient. Was smoking cessation discussed for >3mins.? @ -No Was critical care preformed (if so, how long)? @ -No Were there social determinants of health that impacted care today? How? (Homelessness, low income, unemployed, alcoholism, drug addiction, transportation, low edu. Level, literacy, decrease access to med. care, senior care, rehab)? @ -No Was there de-escalation of care discussed even if they declined (Discuss DNR or withdrawal of care, Hospice)? DNR status @ -No What co-morbidities impacted this encounter? (DM, HTN, Smoking, COPD, CAD, Cancer, CVA, ARF, Chemo, Hep., AIDS, mental health diagnosis, sleep apnea, morbid obesity)? @ -None Was patient admitted / discharged? Hospital course, mention meds given and route, prescriptions, significant lab abnormalities, going to OR and other pertinent info. @ -Patient was given Zofran and fluids in the emergency department she was feeling better but she still was having some abdominal pain she was given a little bit of Dilaudid and was feeling better. I spoke with Dr. Craft and he agreed he wanted the patient admitted and he would follow-up with him Undiagnosed new problem with uncertain prognosis? @ -No Drug Therapy requiring intensive monitoring for toxicity (Heparin, Nitro, Insulin, Cardizem)? @ -No Were any procedures done? @ -No Diagnosis/symptom? @ -Abdominal pain Acute, or Chronic, or Acute on Chronic? @ -Acute Uncomplicated (without systemic symptoms) or Complicated (systemic symptoms)? @ -Complicated Side effects of treatment? @ -No Exacerbation, Progression, or Severe Exacerbation? @ -No Poses a threat to life or bodily function? How? (Chest pain, [place], [place], pneumonia, PE, COPD, DKA, ARF, appy, cholecystitis, CVA, Diverticulitis, Homicidal, Suicidal, threat to staff... and all critical care pts) @ -No Diagnosis/symptom? @ -Transaminitis Acute, or Chronic, or Acute on Chronic? @ -Acute Uncomplicated (without systemic symptoms) or Complicated (systemic symptoms)? @ -Complicated Side effects of treatment? @ -None Exacerbation, Progression, or Severe Exacerbation] @ -No Poses a threat to life or bodily function? @ -Yes this could be potential metastatic disease to the liver - Lab Data Result diagrams: 10/14/24 12:43 10/14/24 12:43 Lab Results 10/14/24 10/14/24 Range/Units 12:43 12:43 WBC 5.28 (4.50-10.00) 10*3/uL RBC 4.14 (4.10-5.20) 10*6/uL Hgb 12.1 (12.0-15.0) g/dL Hct 34.9 L (37.2-46.3) % MCV 84.3 (80.0-97.0) fL MCH 29.2 (27.0-32.0) pg MCHC 34.7 (32.0-37.0) g/dL Plt Count 226 (140-440) 10*3/uL MPV 8.2 L (9.5-12.2) fL Immature Gran % (Auto) 4.2 % Neutrophils % 82.7 % Lymphocytes % 5.5 % Monocytes % 6.8 % Eosinophils % 0.2 % Basophils % 0.6 % Immature Gran # 0.22 H (0.00-0.04) 10*3/uL Neutrophils # 4.37 (1.80-7.70) 10*3/uL Lymphocytes # 0.29 L (0.90-5.00) 10*3/uL Monocytes # 0.36 (0.20-1.00) 10*3/uL Eosinophils # 0.01 L (0.04-0.35) 10*3/uL Basophils # 0.03 (0.00-0.10) 10*3/uL Sodium 131 L (137-145) mmol/L Potassium 3.4 L (3.5-5.1) mmol/L Chloride 90 L (98-107) mmol/L Carbon Dioxide 27 (22-30) mmol/L Anion Gap 14 mmol/L BUN 12 (7-17) mg/dL Creatinine 1.01 (0.52-1.04) mg/dL Est GFR (CKD-EPI)AfAm 70 (>60 ml/min/1.73 sqM) Est GFR (CKD-EPI)NonAf 60 (>60 ml/min/1.73 sqM) Glucose 102 H (74-99) mg/dL Calcium 10.4 H (8.4-10.2) mg/dL Total Bilirubin 1.5 H (0.2-1.3) mg/dL AST 747 H (14-36) U/L ALT 200 H (4-34) U/L Alkaline Phosphatase 2593 H (38-126) U/L Total Protein 7.6 (6.3-8.2) g/dL Albumin 4.1 (3.5-5.0) g/dL Disposition Clinical Impression: Transaminitis, Abdominal pain, History of cervical cancer Disposition: ADMITTED IP TO THIS [facility] Referrals: Jennifer Navas MD [Primary Care Provider] - 1-2 days Time of Disposition: 15:24
[2024-10-14] MEDS: SODIUM CHLORIDE 0.9% 500 ML 500 ML IV ONE (12:46)
[2024-10-14] MEDS: SODIUM CHLORIDE 0.9% 1,000 ML IV ONE ×2 (12:47→15:53)
[2024-10-14] MEDS: ONDANSETRON 4 MG/2 ML VIAL IVP STA (12:48)
[2024-10-14 12:51] LABS: Basophils # (A) 0.03 10*3/uL (0.00-0.10); Basophils % (A) 0.6 %; Eosinophils # (A) 0.01 10*3/uL (0.04-0.35); Eosinophils % (A) 0.2 %; HCT 34.9 % (37.2-46.3); HGB 12.1 g/dL (12.0-15.0); Lymphocytes # (A) 0.29 10*3/uL (0.90-5.00); Lymphocytes % (A) 5.5 %; MCH 29.2 pg (27.0-32.0); MCHC 34.7 g/dL (32.0-37.0); MCV 84.3 fL (80.0-97.0); Monocytes # (A) 0.36 10*3/uL (0.20-1.00); Monocytes % (A) 6.8 %; Neutrophils # (A) 4.37 10*3/uL (1.80-7.70); Neutrophils % (A) 82.7 %; Platelet Count 226 10*3/uL (140-440); RBC 4.14 10*6/uL (4.10-5.20); RDW 17.2 % (11.5-14.5); WBC 5.28 10*3/uL (4.50-10.00)
[2024-10-14 13:06] LABS: ALT 200 U/L (4-34); AST 747 U/L (14-36); African American GFR (CKD) 70 (>60 ml/min/1.73 sqM); Albumin 4.1 g/dL (3.5-5.0); Anion Gap 14 mmol/L; Blood Urea Nitrogen 12 mg/dL (7-17); Calcium 10.4 mg/dL (8.4-10.2); Carbon Dioxide 27 mmol/L (22-30); Chloride 90 mmol/L (98-107); Glucose 102 mg/dL (74-99); Non-African American GFR(CKD) 60 (>60 ml/min/1.73 sqM); Potassium 3.4 mmol/L (3.5-5.1); Sodium 131 mmol/L (137-145); Total Protein 7.6 g/dL (6.3-8.2)
[2024-10-14 13:31] LABS: Alkaline Phosphatase 2593 U/L (38-126)
--- NOTE | 2024-10-14 14:35 | US ---
EXAMINATION TYPE: US abdomen limited DATE OF EXAM: 10/14/2024 COMPARISON: NONE CLINICAL INDICATION: Female, 63 years old with history of Abdominal pain elevated liver enzymes; Naus ea, vomiting, and RUQ pain since last radiation treatment on , on week 2 of radiation but has had less than 10 treatments for uterine cancer. Bilateral renal stents placed in august and are schedul ed to be removed in november. Hx Cholecystectomy. TECHNIQUE: Grayscale and color Doppler imaging of the right upper quadrant was performed. FINDINGS: EXAM MEASUREMENTS: Liver Length: 18.3 cm Gallbladder Wall: Surgically absent cm CBD: 0.3 cm Right Kidney: 10.2 x 4.2 x 5.1 cm MOLECULAR PATHOLOGIST NOTES: Pancreas: wnl Liver: Enlarged and ?Lobular Gallbladder: Surgically absent Evidence for sonographic Leigh's sign: NA CBD: wnl Right Kidney: Dilated renal pelvis area. There is mild dilatation of the proximal collecting system. IMPRESSION: 1. Mild hydroureteronephrosis. No echogenic findings correlating to a reported renal stent identified on ultrasound. 2. Lobular contour of the liver is suggested. Correlate for cirrhosis. [facility], , 10/14/2024 2:33 PM
[2024-10-14] MEDS: HYDROmorphone 0.5 MG/0.5 ML SYRINGE IVP STA (15:17)
[2024-10-14] MEDS ORDERED: ONDANSETRON 4 MG/2 ML VIAL IVP PRN (15:26)
[2024-10-14] MEDS: SCOPOLAMINE 1 MG/72 HR PATCH TRANSDERM SCH (18:16)
--- NOTE | 2024-10-14 20:01 | P.CONS ---
History of Present Illness - Reason for Consult Consult date: 10/14/24 uterine carcinoma Requesting physician: Baljinder Ocampo - Chief Complaint intractable nausea, vomiting - History of Present Illness Ms. Ricci is a 63 yo female pt of Dr. Alfredo, initially seen 08/22/24 in consult for findings of a large uterine mass. She presented with c/o lower abd pain, associated with inability to urinate and difficulty passing stool. Constitutional symptoms of malaise x 1 mo and 13 lb unintentional wt loss. She did have intermittent vaginal bleeding. KUB x-ray 08/20/2024 reported nonspecific bowel gas pattern no acute process. CTAP with contrast reported bilateral hydronephrosis secondary to complex heterogenous uterine mass with lympha denopathy and a left pulmonary nodule. CT AP 08/08/24 with contrast reported a left lower lobe pulmonary nodule 1.2 cm, left periaortic conglomerate lymphadenopathy measuring 5.9 x 2.7 cm with additional adjacent enlarged lymph nodes, bilateral iliac chain adenopathy 2.7 cm on the left 3.5 cm on the right. Enlarged and lobulated uterus with infiltrative type appearing mass suspicious for malignancy. She was due to see [facility] 08/21/2024. She was back in the ER on the . CT of the chest and neck ordered for fullness noted on exam in the right supraclavicular area. Scan showed thickening of the aryepiglottic folds with some asymmetric partial effacement of the left pyriform sinus. Left super clavicular adenopathy measuring 4.2 x 1.9 cm. Multiple bilateral pul monary nodules largest measuring 3.3 cm. Possible enlarged 8 mm retrocrural lymph node. 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 She was seen for her first office visit on 08/29/24 for new diagnosis of metastatic squamous cell carcinoma. Given the clinical picture, of mass involving the uterus/cervix, significant pelvic and other abdominal adenopathy, a lung nodule, this would appear to be most consistent with metastatic cervical cancer. The patient was however noted to have abnormality in the left aryepiglottic area, and has some intermittent dysphagia. She was referred to Dr. Garrido for evaluation but pt admits she cannot get transportation to that appt. It was discussed with her at her appt that even if she is found to have another primary at this site, she does have widely metastatic disease. Disease is not curable, regardless of the primary site, and the objective of treatment would be prolongation of life and pall iation of symptoms. Pt wanted to start active treatment. She was referred to Rad Onc for palliative radiation, which she should be completing soon. Plans to start systemic therapy in the near future. Pt states she came to the hospital becausa nausea medications were not longer effective. She could not keep anything down. She denied fevers, oral irritation, difficulty swallowing, chest pain, she has abd discomfort when her abd is palpated, she feels bloated. She states she has started to urinate, she is trying to manage constipation, no black or blood stool. Review of Systems 10 point ROS is neg except as stated in HPI Past Medical History Past Medical History: Cancer (small cell carcimona of the uterus), Thyroid Disor brent Additional Past Medical History / Comment(s): IRRITABLE BOWEL SYNDROME History of Any Multi-Drug Resistant Organisms: None Reported Past Surgical History: Cholecystectomy Additional Past Surgical History / Comment(s): CARPAL TUNNEL SURGERY, gallbladder removal Past Anesthesia/Blood Transfusion Reactions: Postoperative Nausea & Vomiting (PONV) Past Psychological History: No Psychological Hx Reported Smoking Status: Never smoker Past Alcohol Use History: None Reported Past Drug Use History: None Reported - Past Family History Father History Unknown: Yes Family Medical History: Diabetes Mellitus, Renal Disease Mother Family Medical History: CVA/TIA Medications and Allergies Home Medications Medication Instructions Recorded Confirmed Type Levothyroxine Sodium [Levoxyl] 100 mcg PO DAILY 09/13/16 10/14/24 History Sertraline [Zoloft] 50 mg PO DAILY 09/13/16 10/14/24 History Docusate [Colace] 100 mg PO BID #60 cap 08/27/24 10/14/24 Rx Losartan [Cozaar] 50 mg PO DAILY #30 tab 08/27/24 10/14/24 Rx Morphine Sulfate ER [Ms Contin] 15 mg PO Q12HR tab 08/27/24 10/14/24 Rx amLODIPine [Norvasc] 10 mg PO DAILY #30 tab 08/27/24 10/14/24 Rx HYDROcodone/APAP 5-325MG [[place] 1 tab PO Q4HR 10/14/24 10/14/24 History 5-325] Lactulose [Cephulac] 20 gm PO DAILY 10/14/24 10/14/24 History OLANZapine [ZyPREXA] 2.5 mg PO DIRECTED 10/14/24 10/14/24 History Ondansetron [Zofran] 4 - 8 mg PO Q4H 10/14/24 10/14/24 History bisacodyL [Dulcolax] 10 mg RECTAL DAILY PRN 10/14/24 10/14/24 History Allergies Allergy/AdvReac Type Severity Reaction Status Date / Time latex Allergy Rash/Hives Verified 10/14/24 15:53 Sulfa (Sulfonamide Allergy Rash/Hives Verified 10/14/24 15:53 Antibiotics) tramadol Allergy Rash/Hives Verified 10/14/24 15:53 hydromorphone [From Dilaudid] AdvReac Nausea & Verified 10/14/24 15:53 Vomiting Physical Exam Vitals: Vital Signs Temp Pulse Resp BP Pulse Ox 10/14/24 15:15 97.9 F 78 16 160/68 98 10/14/24 12:22 97.8 F 85 18 132/71 97 10/14/24 12:03 97.8 F 93 18 86/53 98 Intake and Output 10/14/24 10/14/24 10/14/24 06:59 14:59 22:59 Other: Weight 70.307 kg - Constitutional General appearance: average body habitus, cooperative, no acute distress - EENT Eyes: anicteric sclerae, EOMI ENT: hearing grossly normal, normal oropharynx - Neck Neck: lymphadenopathy (massive left supraclavicular LAD, matted nodes) - Respiratory Respiratory: bilateral: CTA - Cardiovascular Rhythm: regular Heart sounds: normal: S1, S2 Abnormal Heart Sounds: no systolic murmur, no diastolic murmur, no rub, no S3 Gallop, no S4 Gallop, no click, no other leg Peripheral Edema: bilateral: None - Gastrointestinal General gastrointestinal: decreased bowel sounds, soft, tenderness - Integumentary Integumentary: normal - Neurologic Neurologic: CNII-XII intact - Musculoskeletal Musculoskeletal: strength equal bilaterally - Psychiatric Psychiatric: A&O x's 3, appropriate affect, intact judgment & insight Results CBC & Chem 7: 10/14/24 12:43 10/14/24 12:43 Labs: Abnormal Lab Results - Last 24 Hours (Table) 10/14/24 10/14/24 Range/Units 12:43 12:43 Hct 34.9 L (37.2-46.3) % MPV 8.2 L (9.5-12.2) fL Immature Gran # 0.22 H (0.00-0.04) 10*3/uL Lymphocytes # 0.29 L (0.90-5.00) 10*3/uL Eosinophils # 0.01 L (0.04-0.35) 10*3/uL Sodium 131 L (137-145) mmol/L Potassium 3.4 L (3.5-5.1) mmol/L Chloride 90 L (98-107) mmol/L Glucose 102 H (74-99) mg/dL Calcium 10.4 H (8.4-10.2) mg/dL Total Bilirubin 1.5 H (0.2-1.3) mg/dL AST 747 H (14-36) U/L ALT 200 H (4-34) U/L Alkaline Phosphatase 2593 H (38-126) U/L US - abdomen: report reviewed Assessment and Plan (1) Intractable vomiting Current Visit: Yes Status: Acute Priority: High Code(s): R11.10 - VOMITING, UNSPECIFIED SNOMED Code(s): 067254236 (2) Constipation Current Visit: Yes Status: Acute Priority: High Code(s): K59.00 - CONSTIPATION, UNSPECIFIED SNOMED Code(s): 93829409 (3) History of cervical cancer Current Visit: Yes Status: Acute Priority: High Code(s): Z85.41 - PERSONAL HISTORY OF MALIGNANT NEOPLASM OF CERVIX UTERI SNOMED Code(s): 257513298 Plan: Intractable vomiting, constipation -Pt presenting with intractable vomiting and constipation -likely 2/2 disease in abd, radiation and quite possibly from constipation -antiemetic regimen modified -medications to promote BM ordered -Will see if pt has improvement in her symptoms in the AM Metastatic squamous cell carcinoma of the uterus -New diagnosis, as stated in HPI -Pt currently receiving radiation for palliation of symptoms in the pelvis -She is due to start systemic, palliative treatment as soon as radiation is complete -Discussed with RN. Recommend contacting Radiation department in AM so that pt con continue radiation and not delay start of systemic therapy -Pt states she is unable to get to Oncology ENT for evaluation of the abnormal findings in imaging of the neck. Not sure what can be done locally, if anything. Best option would be to start treatment-carbo/taxol/avastin-as the [place] and taxane would potentially have effect on head/neck malignancy.
--- NOTE | 2024-10-14 20:18 | CT ---
EXAMINATION TYPE: CT abdomen pelvis w con DATE OF EXAM: 10/14/2024 8:07 PM COMPARISON: None. CLINICAL INDICATION: Female, 63 years old with history of possible metastatic disease, nausea, vomiti ng and loss of appetite x 4 days. Pt is currently being treated with radiation for uterine cancer TECHNIQUE:CT scan of the abdomen and pelvis is performed without Oral Contrast and with IV Contrast, patient injected with 100ml mL of Isovue 300. CT DLP: 699.5 mGycm, Automated exposure control for dose reduction was used. FINDINGS: LUNG BASES-: No visible nodule. No infiltrate. Increasing left basilar pulmonary nodule now measurin g 2.5 cm with numerous additional new pulmonary nodules noted within the imaged lung bases. LIVER/GB: No calcified gallstones. Innumerable metastatic lesions throughout all segments and quadrants of the liver. Findings are gelacio tible with metastatic disease. Biliary tree is of normal caliber. PANCREAS: No inflammation. No distinct mass. SPLEEN: No splenic enlargement. No lesion seen. ADRENALS: No nodule. No thickening. KIDNEYS/BLADDER: No hydronephrosis. No nephrolithiasis. No distinct renal mass. Urinary bladder g rossly unremarkable. Bilateral ureteral stents noted in place with mild fullness of the renal collect ing systems and no evidence for melinda hydronephrosis. BOWEL: Normal appendix. Normal bowel caliber. No inflammation. GENITAL ORGANS: Complex uterine mass as noted previously. Reflect the site of primary malignancy. LYMPH NODES: Right retrocrural adenopathy measuring 2.2 cm. Retroperitoneal adenopathy with aorto int racaval lymph node mass measuring 4 cm in greatest dimension. There is left periaortic adenopathy wit h lymph node mass measuring 5.1 x 3.9 cm. Retrocaval adenopathy measuring 2.1 cm. There is common deuce ac as well as internal iliac chain adenopathy noted bilaterally. AORTA: No significant abnormality. OSSEOUS STRUCTURES: No significant abnormality is seen. OTHER: No significant additional abnormality is seen. IMPRESSION: 1. There is progression of metastatic disease as noted above to the lungs, liver and adenopathy as no [place]. Heterogenous uterine roderick is felt to reflect site of primary malignancy. [facility], , 10/14/2024 8:15 PM
[2024-10-14] MEDS: SENNOSIDES-DOCUSATE SODIUM 1 EACH TAB PO SCH (20:28)
[2024-10-14] MEDS: HYDROcodone/APAP 5-325MG 1 EACH TAB PO SCH (20:28)
[2024-10-14] MEDS: MORPHINE SULFATE ER 15 MG TABLET PO SCH (20:29)
[2024-10-14] MEDS: ONDANSETRON 4 MG/2 ML VIAL IVP PRN (20:32)
[2024-10-14] MEDS ORDERED: DOCUSATE 100 MG CAP PO SCH (21:00)
[2024-10-15] MEDS: LEVOTHYROXINE 100 MCG TAB PO SCH (05:51)
[2024-10-15 08:21] LABS: Basophils # (A) 0.03 X 10*3/uL (0.00-0.10); Basophils % (A) 0.6 %; Eosinophils # (A) 0.03 X 10*3/uL (0.04-0.35); Eosinophils % (A) 0.6 %; HCT 32.5 % (37.2-46.3); HGB 10.3 g/dL (12.0-15.0); Immature Grans, Automated 4.10 %; Lymphocytes # (A) 0.34 X 10*3/uL (0.90-5.00); Lymphocytes % (A) 6.7 %; MCH 27.8 pg (27.0-32.0); MCHC 31.7 g/dL (32.0-37.0); MCV 87.8 FL (80.0-97.0); Monocytes # (A) 0.38 X 10*3/uL (0.20-1.00); Monocytes % (A) 7.4 %; NRBC Per 100 WBC 0 X 10*3/uL (0.00-0.01); Neutrophils # (A) 4.12 X 10*3/uL (1.80-7.70); Neutrophils % (A) 80.6 %; Platelet Count 235 X 10*3/uL (140-440); RBC 3.70 X 10*6/uL (4.10-5.20); RDW 17.9 % (11.5-14.5); WBC 5.11 X 10*3/uL (4.50-10.00)
[2024-10-15 08:33] LABS: Magnesium 1.9 mg/dL (1.5-2.4)
[2024-10-15 08:46] LABS: ALT 207 U/L (8-44); AST 736 U/L (13-35); Albumin 3.3 g/dL (3.8-4.9); Albumin/Globulin Ratio 1.18 Ratio (1.60-3.17); Alkaline Phosphatase 2316 U/L (41-126); Anion Gap 16.90 mmol/L (4.00-12.00); BUN/Creat Ratio 12.00 Ratio (12.00-20.00); Blood Urea Nitrogen 7.2 mg/dL (9.0-27.0); Calcium 8.8 mg/dL (8.7-10.3); Carbon Dioxide 22.1 mmol/L (21.6-31.8); Chloride 94 mmol/L (96-109); Globulin 2.8 g/dL (1.6-3.3); Glucose 74 mg/dL (70-110); Potassium 3.2 mmol/L (3.5-5.5); Sodium 133 mmol/L (135-145); Total Protein 6.1 g/dL (6.2-8.2)
[2024-10-15] MEDS: LACTULOSE 20 GM/30 ML CUP PO SCH (08:54)
[2024-10-15] MEDS: SERTRALINE 50 MG TAB PO SCH (08:54)
[2024-10-15] MEDS: HYDROcodone/APAP 5-325MG 1 EACH TAB PO SCH (10:24)
--- NOTE | 2024-10-15 12:21 | P.PN ---
Subjective Progress Note Date: 10/15/24 10/15/24 - She is seen and examined at bedside this morning. Continues to have complaints of constipation and abdominal pain. She does note having had a bowel movement this morning, however the stool is hard and pellet-like. She does feel as though her nausea has improved, however is still eating very little as she is concerned about the possibility of vomiting as well as having minimal appetite at this time. Feels as though if her constipation resolves, will lead to alleviation in many of her symptoms. She is complaining of some dry mouth, which is not to be unexpected while using the scopolamine patch. REVIEW OF SYSTEMS: Pertinent positives and negatives noted in HPI. Objective - Vital Signs Vital signs: Vital Signs Temp 97.9 F 10/15/24 07:01 Pulse 64 10/15/24 07:01 Resp 18 10/15/24 07:01 BP 108/66 10/15/24 07:01 Pulse Ox 95 10/15/24 07:01 FiO2 Intake & Output 10/14/24 10/15/24 10/15/24 18:59 06:59 18:59 Intake Total 300 600 Balance 300 600 Weight 70.307 kg Intake: Intake, IV Titration 300 Amount Sodium Chloride 0.9% 1, 300 000 ml @ 100 mls/hr IV . Q10H ONE Rx#:[id number] Other 600 Other: Voiding Method Toilet Toilet # Voids 2 - Exam Physical Exam: General: nontoxic, no distress, appears at stated age Derm: warm, dry, intact Head: atraumatic, normocephalic, symmetric Eyes: EOMI, anicteric sclera Mouth: no lip lesion, mucus membranes moist Cardiovascular: S1 S2 reg, no murmur, rubs, or gallops Lungs: CTA bilateral, no rales, no accessory muscle use Abdominal: Abdominal distention with some tenderness to palpation Extremities: no gross muscle atrophy, no edema, no contractures Neuro: Alert, Oriented, CNII-XII grossly intact, gait normal Psych: well appearing, appropriate affect - Labs CBC & Chem 7: 10/15/24 04:47 10/15/24 04:47 Labs: Abnormal Lab Results - Last 24 Hours (Table) 10/14/24 10/14/24 10/15/24 Range/Units 12:43 12:43 04:47 RBC 3.70 L (4.10-5.20) X 10*6/uL Hgb 10.3 L (12.0-15.0) g/dL Hct 34.9 L 32.5 L (37.2-46.3) % MCHC 31.7 L (32.0-37.0) g/dL RDW 17.9 H (11.5-14.5) % MPV 8.2 L 9.0 L (9.5-12.2) fL Immature Gran # 0.22 H 0.21 H (0.00-0.04) 10*3/uL Lymphocytes # 0.29 L 0.34 L (0.90-5.00) 10*3/uL Eosinophils # 0.01 L 0.03 L (0.04-0.35) 10*3/uL Sodium 131 L (137-145) mmol/L Potassium 3.4 L (3.5-5.1) mmol/L Chloride 90 L (98-107) mmol/L Anion Gap (4.00-12.00) mmol/L BUN (9.0-27.0) mg/dL Glucose 102 H (74-99) mg/dL Calcium 10.4 H (8.4-10.2) mg/dL Total Bilirubin 1.5 H (0.2-1.3) mg/dL AST 747 H (14-36) U/L ALT 200 H (4-34) U/L Alkaline Phosphatase 2593 H (38-126) U/L Total Protein (6.2-8.2) g/dL Albumin (3.8-4.9) g/dL Albumin/Globulin Ratio (1.60-3.17) Ratio 10/15/24 Range/Units 04:47 RBC (4.10-5.20) X 10*6/uL Hgb (12.0-15.0) g/dL Hct (37.2-46.3) % MCHC (32.0-37.0) g/dL RDW (11.5-14.5) % MPV (9.5-12.2) fL Immature Gran # (0.00-0.04) 10*3/uL Lymphocytes # (0.90-5.00) 10*3/uL Eosinophils # (0.04-0.35) 10*3/uL Sodium 133 L (137-145) mmol/L Potassium 3.2 L (3.5-5.1) mmol/L Chloride 94 L (98-107) mmol/L Anion Gap 16.90 H (4.00-12.00) mmol/L BUN 7.2 L (9.0-27.0) mg/dL Glucose (74-99) mg/dL Calcium (8.4-10.2) mg/dL Total Bilirubin (0.2-1.3) mg/dL AST 736 H (14-36) U/L ALT 207 H (4-34) U/L Alkaline Phosphatase 2316 H (38-126) U/L Total Protein 6.1 L (6.2-8.2) g/dL Albumin 3.3 L (3.8-4.9) g/dL Albumin/Globulin Ratio 1.18 L (1.60-3.17) Ratio Assessment and Plan Assessment: #Intractable vomiting, constipation, improving - She has not vomited and feels as though her nausea is moving, however remains constipated - likely 2/2 disease in abd, radiation and quite possibly from constipation - Continue with Zofran 8 mg every 6 hours as needed, scopolamine patch every 72 hours; additionally has Compazine 10 mg every 6 hours as needed available - medications to promote BM ordered; will continue with current bowel regimen, if unsuccessful consider enema - discussed with nursing staff at length - Will see if pt has improvement in her symptoms in the AM #Metastatic squamous cell carcinoma of the cervix - New diagnosis, as stated in HPI - Pt currently receiving radiation for palliation of symptoms in the pelvis; will receive palliative radiation at 1600 on 10/15/2024 - She is due to start systemic, palliative treatment as soon as radiation is complete - Continue with pain control as he is currently with [place] 5 every 4 hours, and MS Contin 15 mg every 12 for Dictation was produced using [employer] dictation software. please excuse any grammatical, word or spelling errors. Omega Paez MD PGY-2 IM Patient seen with resident agree with assessment and plan as outlined above. She does have persistent abdominal distention with nausea in the presence of constipation. Nausea is significantly improved with Zofran 8 mg every 6 hours as needed along with scopolamine patch added on admission. She was scheduled to receive suppository following our visit with her today and agree with this. If this is not helpful, enema can be attempted to help promote bowel movement. For now, we will continue with the current pain regimen of [place] 5/325 every 4 hours along with long-acting MS Contin, but will have low threshold to change this if she has persistent constipation as this could be contributing to the constipation. She will continue radiation therapy while inpatient to complete a total of 15 fractions of radiation therapy. She was scheduled to receive cycle 1 of systemic treatment on 10/25/2024 following completion of radiation therapy. Piedad Aponte MD
--- NOTE | 2024-10-15 12:36 | P.HPIM ---
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 Patient currently undergoing radiotherapy. Presents because of abdominal pain nausea vomiting x 4 days associated with constipation. Abdominal pain was 10/10 currently 5/10 felt like sharp periumbilical increase with movement to decrease if she stays still. She did not have bowel movement for the last few days. Passing some gas. She vomited once but no blood was really bolus. She denies chest pain or dyspnea. No urinary complaint. No headache dizziness weakness numbness. She denies smoking alcohol or illicit drugs. Hemodynamically stable. Blood pressure was low on admission 86/53, currently 98/75. Sodium 131, ALT 200 and AST 747 and bilirubin 1.5 rest of CBC, basic metabolic panel were unremarkable. Ultrasound showed mild hydro ureteric nephrosis on the right side. Lobular contour of the liver suspicious for cirrhosis. Review of Systems Review of systems CONSTITUTIONAL: No fever, no malaise, no fatigue. HEENT: No recent visual problems or hearing problems. Denied any sore throat. CARDIOVASCULAR: No orthopnea, PND, no palpitations, no syncope. PULMONARY: No shortness of breath, no cough, no hemoptysis. GASTROINTESTINAL: No diarrhea, Normoactive bowel sounds. NEUROLOGICAL: No headaches, no weakness, no numbness. HEMATOLOGICAL: Denies any bleeding or petechiae. GENITOURINARY: Denies any burning micturition, frequency, or urgency. MUSCULOSKELETAL/RHEUMATOLOGICAL: Denies any joint pain, swelling, or any muscle pain. ENDOCRINE: Denies any polyuria or polydipsia. 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), Thyroid Disorder Additional Past Medical History / Comment(s): IRRITABLE BOWEL SYNDROME History of Any Multi-Drug Resistant Organisms: None Reported Past Surgical History: Cholecystectomy Additional Past Surgical History / Comment(s): CARPAL TUNNEL SURGERY, gallbladder removal Past Anesthesia/Blood Transfusion Reactions: Postoperative Nausea & Vomiting (PONV) Past Psychological History: No Psychological Hx Reported Smoking Status: Never smoker Past Alcohol Use History: None Reported Past Drug Use History: None Reported - Past Family History Father History Unknown: Yes Family Medical History: Diabetes Mellitus, Renal Disease Mother Family Medical History: CVA/TIA Medications and Allergies Home Medications Medication Instructions Recorded Confirmed Type Levothyroxine Sodium [Levoxyl] 100 mcg PO DAILY 09/13/16 10/14/24 History Sertraline [Zoloft] 50 mg PO DAILY 09/13/16 10/14/24 History Docusate [Colace] 100 mg PO BID #60 cap 08/27/24 10/14/24 Rx Losartan [Cozaar] 50 mg PO DAILY #30 tab 08/27/24 10/14/24 Rx Morphine Sulfate ER [Ms Contin] 15 mg PO Q12HR tab 08/27/24 10/14/24 Rx amLODIPine [Norvasc] 10 mg PO DAILY #30 tab 08/27/24 10/14/24 Rx HYDROcodone/APAP 5-325MG [Gillett 1 tab PO Q4HR 10/14/24 10/14/24 History 5-325] Lactulose [Cephulac] 20 gm PO DAILY 10/14/24 10/14/24 History OLANZapine [ZyPREXA] 2.5 mg PO DIRECTED 10/14/24 10/14/24 History Ondansetron [Zofran] 4 - 8 mg PO Q4H 10/14/24 10/14/24 History bisacodyL [Dulcolax] 10 mg RECTAL DAILY PRN 10/14/24 10/14/24 History Allergies Allergy/AdvReac Type Severity Reaction Status Date / Time latex Allergy Rash/Hives Verified 10/14/24 15:53 Sulfa (Sulfonamide Allergy Rash/Hives Verified 10/14/24 15:53 Antibiotics) tramadol Allergy Rash/Hives Verified 10/14/24 15:53 hydromorphone [From Dilaudid] AdvReac Nausea & Verified 10/14/24 15:53 Vomiting Physical Exam Vitals: Vital Signs Temp Pulse Pulse Resp BP BP Pulse Ox 10/15/24 07:01 97.9 F 64 18 108/66 95 10/15/24 00:55 97.8 F 91 18 113/70 95 10/14/24 20:00 98.3 F 90 18 115/65 94 L 10/14/24 16:45 97.9 F 86 16 135/75 97 10/14/24 15:57 97.7 F 79 20 137/60 99 10/14/24 15:15 97.9 F 78 16 160/68 98 Intake and Output 10/14/24 10/15/24 10/15/24 22:59 06:59 14:59 Intake Total 300 600 Balance 300 600 Intake: Intake, IV Titration 300 Amount Sodium Chloride 0.9% 1, 300 000 ml @ 100 mls/hr IV . Q10H ONE Rx#:[id number] Other 600 Other: Voiding Method Toilet Toilet # Voids 2 Weight 70.307 kg GENERAL: The patient is alert and oriented x3, not in any acute distress. Well developed, well nourished. HEENT: Pupils are round and equally reacting to light. EOMI. No scleral icterus. No conjunctival pallor. Normocephalic, atraumatic. No pharyngeal erythema. No thyromegaly. CARDIOVASCULAR: S1 and S2 present. No murmurs, rubs, or gallops. PULMONARY: Chest is clear to auscultation, no wheezing , no crackles. -ABDOMEN: Soft, periumbilical tenderness with no guarding or rebound tenderness mildly distended, normoactive bowel sounds. No palpable organomegaly. MUSCULOSKELETAL: No joint swelling or deformity. EXTREMITIES: No cyanosis, clubbing, or pedal edema. NEUROLOGICAL: Gross neurological examination did not reveal any focal deficits. SKIN: No rashes. no petechiae. Results CBC & Chem 7: 10/15/24 04:47 10/15/24 04:47 Labs: Abnormal Lab Results - Last 24 Hours (Table) 10/14/24 10/14/24 10/15/24 Range/Units 12:43 12:43 04:47 RBC 3.70 L (4.10-5.20) X 10*6/uL Hgb 10.3 L (12.0-15.0) g/dL Hct 34.9 L 32.5 L (37.2-46.3) % MCHC 31.7 L (32.0-37.0) g/dL RDW 17.9 H (11.5-14.5) % MPV 8.2 L 9.0 L (9.5-12.2) fL Immature Gran # 0.22 H 0.21 H (0.00-0.04) 10*3/uL Lymphocytes # 0.29 L 0.34 L (0.90-5.00) 10*3/uL Eosinophils # 0.01 L 0.03 L (0.04-0.35) 10*3/uL Sodium 131 L (137-145) mmol/L Potassium 3.4 L (3.5-5.1) mmol/L Chloride 90 L (98-107) mmol/L Anion Gap (4.00-12.00) mmol/L BUN (9.0-27.0) mg/dL Glucose 102 H (74-99) mg/dL Calcium 10.4 H (8.4-10.2) mg/dL Total Bilirubin 1.5 H (0.2-1.3) mg/dL AST 747 H (14-36) U/L ALT 200 H (4-34) U/L Alkaline Phosphatase 2593 H (38-126) U/L Total Protein (6.2-8.2) g/dL Albumin (3.8-4.9) g/dL Albumin/Globulin Ratio (1.60-3.17) Ratio 10/15/24 Range/Units 04:47 RBC (4.10-5.20) X 10*6/uL Hgb (12.0-15.0) g/dL Hct (37.2-46.3) % MCHC (32.0-37.0) g/dL RDW (11.5-14.5) % MPV (9.5-12.2) fL Immature Gran # (0.00-0.04) 10*3/uL Lymphocytes # (0.90-5.00) 10*3/uL Eosinophils # (0.04-0.35) 10*3/uL Sodium 133 L (137-145) mmol/L Potassium 3.2 L (3.5-5.1) mmol/L Chloride 94 L (98-107) mmol/L Anion Gap 16.90 H (4.00-12.00) mmol/L BUN 7.2 L (9.0-27.0) mg/dL Glucose (74-99) mg/dL Calcium (8.4-10.2) mg/dL Total Bilirubin (0.2-1.3) mg/dL AST 736 H (14-36) U/L ALT 207 H (4-34) U/L Alkaline Phosphatase 2316 H (38-126) U/L Total Protein 6.1 L (6.2-8.2) g/dL Albumin 3.3 L (3.8-4.9) g/dL Albumin/Globulin Ratio 1.18 L (1.60-3.17) Ratio Thrombosis Risk Factor Assmnt - Choose All That Apply Any of the Below Risk Factors Present?: Yes Each Factor Represents 1 point: Medical pt on bed rest, Swollen legs (current) Other Risk Factors: Yes Each Risk Factor Represents 2 Points: Age 61-74 years, Malignancy Each Risk Factor Represents 3 Points: Family history of DVT/PE Thrombosis Risk Factor Assessment Total Risk Factor Score: 9 Thrombosis Risk Factor Assessment Level: High Risk Assessment and Plan Assessment: Uterine cancer with metastasis to the lung and lymph node Status getting radiotherapy currently Abdominal pain and vomiting and constipation, could be gastroenteritis, radiation enteritis versus bowel obstruction versus other Transaminitis Hypertension related to above Hypovolemic hyponatremia Possible liver cirrhosis Plan: continue with IV hydration Continue with stool softener Patient may benefit from enema Check KUB Hematology/oncology team consult Continue with bowel rest, currently on liquid diet Labs and medication were reviewed.. Continue same treatment. Continue with symptomatic treatment. Resume home medication. Monitor labs and vitals. DVT and GI prophylaxis. Further recommendations as per clinical course of the patient DVT prophylaxis: Subcutaneous heparin GI Prophylaxis: Pepcid PT/OT: Pending Prognosis is guarded
--- NOTE | 2024-10-15 13:05 | XR ---
EXAMINATION TYPE: XR KUB portable DATE OF EXAM: 10/15/2024 COMPARISON: CT abdomen and pelvis 10/14/2024, KUB radiograph 08/20/2024 HISTORY: Pain and constipation TECHNIQUE: Single supine KUB image of the abdomen is obtained FINDINGS: Small bowel demonstrates no evidence for dilatation or air fluid levels. Gas and fecal material is seen in non-distended colon. No convincing evidence for pneumoperitoneum. Bilateral ureteral stents identified. No suspicious calculi demonstrated. The lung bases are clear. The osseous structures are intact. IMPRESSION: Overall nonobstructive bowel gas pattern. [facility], , 10/15/2024 1:03 PM
[2024-10-15] MEDS: NA PHOS,M-B/NA PHOS,DI-BA 133 ML ENEMA RECTAL ONE (13:22)
[2024-10-15] MEDS: POTASSIUM CHLORIDE ER 20 MEQ TAB.ER PO STA (14:03)
[2024-10-15] MEDS: DEXTROSE 5%-LACTATED RINGERS 1,000 ML IV SCH (14:27)
[2024-10-15] MEDS: MAGNESIUM OXIDE 400 MG TAB PO SCH (15:40)
[2024-10-15] MEDS: PROCHLORPERAZINE 10 MG TAB PO PRN (22:55)
[2024-10-16] MEDS: PANTOPRAZOLE 40 MG/10 ML VIAL IVP SCH (00:26)
[2024-10-16 08:31] LABS: Basophils # (A) 0.03 X 10*3/uL (0.00-0.10); Basophils % (A) 0.6 %; Eosinophils # (A) 0.02 X 10*3/uL (0.04-0.35); Eosinophils % (A) 0.4 %; HCT 30.4 % (37.2-46.3); HGB 9.7 g/dL (12.0-15.0); Immature Grans, Automated 4.60 %; Lymphocytes # (A) 0.29 X 10*3/uL (0.90-5.00); Lymphocytes % (A) 5.3 %; MCH 27.8 pg (27.0-32.0); MCHC 31.9 g/dL (32.0-37.0); MCV 87.1 FL (80.0-97.0); Monocytes # (A) 0.39 X 10*3/uL (0.20-1.00); Monocytes % (A) 7.2 %; NRBC Per 100 WBC 0.03 X 10*3/uL (0.00-0.01); Neutrophils # (A) 4.45 X 10*3/uL (1.80-7.70); Neutrophils % (A) 81.9 %; Platelet Count 219 X 10*3/uL (140-440); RBC 3.49 X 10*6/uL (4.10-5.20); RDW 18.6 % (11.5-14.5); WBC 5.43 X 10*3/uL (4.50-10.00)
[2024-10-16 08:53] LABS: Anion Gap 13.10 mmol/L (4.00-12.00); BUN/Creat Ratio 12.43 Ratio (12.00-20.00); Blood Urea Nitrogen 8.7 mg/dL (9.0-27.0); Calcium 9.2 mg/dL (8.7-10.3); Carbon Dioxide 24.9 mmol/L (21.6-31.8); Chloride 95 mmol/L (96-109); Glucose 83 mg/dL (70-110); Magnesium 2.1 mg/dL (1.5-2.4); Potassium 3.4 mmol/L (3.5-5.5); Sodium 133 mmol/L (135-145)
--- NOTE | 2024-10-16 12:30 | P.PN ---
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 Patient currently undergoing radiotherapy. Presents because of abdominal pain nausea vomiting x 4 days associated with constipation. Abdominal pain was 10/10 currently 5/10 felt like sharp periumbilical increase with movement to decrease if she stays still. She did not have bowel movement for the last few days. Passing some gas. She vomited once but no blood was really bolus. She denies chest pain or dyspnea. No urinary complaint. No headache dizziness weakness numbness. She denies smoking alcohol or illicit drugs. Hemodynamically stable. Blood pressure was low on admission 86/53, currently 98/75. Sodium 131, ALT 200 and AST 747 and bilirubin 1.5 rest of CBC, basic metabolic panel were unremarkable. Ultrasound showed mild hydro ureteric nephrosis on the right side. Lobular contour of the liver suspicious for cirrhosis. 10/16 Looks pain control patient is sleepy Patient ate little bit She had little bowel movement Afebrile labs showing WBC 5.4 hemoglobin 9.7 and platelet count is normal at 219. BMP is unremarkable with sodium 133, potassium 3.4 and creatinine 0.7. Objective - Vital Signs Vital signs: Vital Signs Temp 98.2 F 10/16/24 07:12 Pulse 101 H 10/16/24 07:12 Resp 14 10/16/24 07:12 BP 124/77 10/16/24 07:12 Pulse Ox 93 L 10/16/24 07:12 FiO2 Intake & Output 10/15/24 10/16/24 10/16/24 18:59 06:59 18:59 Intake Total 1080 840 Output Total 60 Balance 1080 780 Intake: Intake, IV Titration 600 Amount Dextrose 5%-Lactated 600 Ringers 1,000 ml @ 50 mls /hr IV .Q20H [facility] Rx#: [id number] Oral 1080 240 Output: Emesis 60 Other: Voiding Method Toilet Toilet # Voids 3 2 # Bowel Movements 1 - Exam GENERAL: The patient is alert and oriented x3, not in any acute distress. Well developed, well nourished. HEENT: Pupils are round and equally reacting to light. EOMI. No scleral icterus. No conjunctival pallor. Normocephalic, atraumatic. No pharyngeal erythema. No thyromegaly. CARDIOVASCULAR: S1 and S2 present. No murmurs, rubs, or gallops. PULMONARY: Chest is clear to auscultation, no wheezing , no crackles. -ABDOMEN: Soft, periumbilical tenderness with no guarding or rebound tenderness mildly distended, normoactive bowel sounds. No palpable organomegaly. MUSCULOSKELETAL: No joint swelling or deformity. EXTREMITIES: No cyanosis, clubbing, or pedal edema. NEUROLOGICAL: Gross neurological examination did not reveal any focal deficits. SKIN: No rashes. no petechiae. - Labs CBC & Chem 7: 10/16/24 04:20 10/16/24 04:20 Labs: Abnormal Lab Results - Last 24 Hours (Table) 10/16/24 10/16/24 Range/Units 04:20 04:20 RBC 3.49 L (4.10-5.20) X 10*6/uL Hgb 9.7 L (12.0-15.0) g/dL Hct 30.4 L (37.2-46.3) % MCHC 31.9 L (32.0-37.0) g/dL RDW 18.6 H (11.5-14.5) % MPV 8.9 L (9.5-12.2) FL Immature Gran # 0.25 H (0.00-0.04) X 10*3/uL Lymphocytes # 0.29 L (0.90-5.00) X 10*3/uL Eosinophils # 0.02 L (0.04-0.35) X 10*3/uL NRBC/100 WBC Diff 0.03 H (0.00-0.01) X 10*3/uL Sodium 133 L (135-145) mmol/L Potassium 3.4 L (3.5-5.5) mmol/L Chloride 95 L (96-109) mmol/L Anion Gap 13.10 H (4.00-12.00) mmol/L BUN 8.7 L (9.0-27.0) mg/dL Assessment and Plan Assessment: Uterine cancer with metastasis to the lung and lymph node Status getting radiotherapy currently Abdominal pain and vomiting and constipation, could be gastroenteritis, radiation enteritis versus bowel obstruction versus other Transaminitis Hypertension related to above Hypovolemic hyponatremia Possible liver cirrhosis Plan: continue with IV hydration Continue with stool softener Patient may benefit from enema Check KUB Hematology/oncology team consult Continue with bowel rest, currently on liquid diet Labs and medication were reviewed.. Continue same treatment. Continue with symptomatic treatment. Resume home medication. Monitor labs and vitals. DVT and GI prophylaxis. Further recommendations as per clinical course of the patient DVT prophylaxis: Subcutaneous heparin GI Prophylaxis: Pepcid PT/OT: Pending Prognosis is guarded
--- NOTE | 2024-10-18 01:38 | P.PN ---
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 Patient currently undergoing radiotherapy. Presents because of abdominal pain nausea vomiting x 4 days associated with constipation. Abdominal pain was 10/10 currently 5/10 felt like sharp periumbilical increase with movement to decrease if she stays still. She did not have bowel movement for the last few days. Passing some gas. She vomited once but no blood was really bolus. She denies chest pain or dyspnea. No urinary complaint. No headache dizziness weakness numbness. She denies smoking alcohol or illicit drugs. Hemodynamically stable. Blood pressure was low on admission 86/53, currently 98/75. Sodium 131, ALT 200 and AST 747 and bilirubin 1.5 rest of CBC, basic metabolic panel were unremarkable. Ultrasound showed mild hydro ureteric nephrosis on the right side. Lobular contour of the liver suspicious for cirrhosis. 10/16 Looks pain control patient is sleepy Patient ate little bit She had little bowel movement Afebrile labs showing WBC 5.4 hemoglobin 9.7 and platelet count is normal at 219. BMP is unremarkable with sodium 133, potassium 3.4 and creatinine 0.7. 10/17 Patient was taking radiotherapy today She states she feels little better today she was able to eat little more. No significant abdominal wall pain Had 1 bowel movement mainly diarrhea Remains on Normosol 50 mL/h Will check liver enzymes still elevated this a.m. will check liver ultrasound and hepatitis panel Active Medications Generic Name Dose Route Start Last Admin Trade Name Freq PRN Reason Stop Dose Admin Hydrocodone Bitart/Acetaminophen 1 each 10/15/24 10:00 10/18/24 00:05 Hydrocodone/Apap 5-325mg 1 Each Tab PO 1 each Q4H GBARIEL Administration Bisacodyl 10 mg 10/16/24 12:54 Bisacodyl 10 Mg Supp RECTAL DAILY PRN Constipation Dextrose/Lactated Ringer's 1,000 mls @ 50 mls/hr 10/15/24 13:45 10/18/24 00:13 Dextrose 5%-Lr Iv Soln IV 50 mls/hr .Q20H GABRIEL Administration Lactulose 20 gm 10/15/24 09:00 10/17/24 09:15 Lactulose 20 Gm/30 Ml Cup PO 20 gm DAILY GABRIEL Administration Levothyroxine Sodium 100 mcg 10/15/24 06:30 10/17/24 05:27 Levothyroxine 100 Mcg Tab PO 100 mcg 0630 GABRIEL Administration Morphine Sulfate 15 mg 10/14/24 21:00 10/17/24 20:26 Morphine Sulfate Er 15 Mg Tablet PO 15 mg Q12HR GABRIEL Administration Protocol Ondansetron HCl 8 mg 10/14/24 17:13 10/18/24 00:11 Ondansetron 4 Mg/2 Ml Vial IVP 8 mg Q6HR PRN Administration Nausea And Vomiting Pantoprazole Sodium 40 mg 10/16/24 00:30 10/17/24 20:25 Pantoprazole 40 Mg/10 Ml Vial IVP 40 mg BID GABRIEL Administration Prochlorperazine Maleate 10 mg 10/14/24 17:12 10/16/24 05:09 Prochlorperazine 10 Mg Tab PO 10 mg Q6HR PRN Administration Nausea And Vomiting Scopolamine 1 patch 10/14/24 17:15 10/17/24 17:38 Scopolamine 1 Mg/72 Hr Patch TRANSDERM 1 patch Q72H GABRIEL Administration Senna/Docusate Sodium 2 each 10/14/24 21:00 10/17/24 20:38 Sennosides-Docusate Sodium 1 Each Tab PO 2 each BID GABRIEL Administration Sertraline HCl 50 mg 10/15/24 09:00 10/17/24 09:18 Sertraline 50 Mg Tab PO 50 mg DAILY GABRIEL Administration Objective - Vital Signs Vital signs: Vital Signs Temp 98.0 F 10/17/24 13:00 Pulse 86 10/17/24 13:00 Resp 20 10/17/24 13:00 BP 120/73 10/17/24 13:00 Pulse Ox 95 10/17/24 13:00 FiO2 Intake & Output 10/16/24 10/17/24 10/17/24 18:59 06:59 18:59 Intake Total 1080 Balance 1080 Intake: Oral 1080 Other: Voiding Method Toilet Toilet # Voids 0 1 # Bowel Movements 2 - Exam GENERAL: The patient is alert and oriented x3, not in any acute distress. Well developed, well nourished. HEENT: Pupils are round and equally reacting to light. EOMI. No scleral icterus. No conjunctival pallor. Normocephalic, atraumatic. No pharyngeal erythema. No thyromegaly. CARDIOVASCULAR: S1 and S2 present. No murmurs, rubs, or gallops. PULMONARY: Chest is clear to auscultation, no wheezing , no crackles. -ABDOMEN: Soft, periumbilical tenderness with no guarding or rebound tenderness mildly distended, normoactive bowel sounds. No palpable organomegaly. MUSCULOSKELETAL: No joint swelling or deformity. EXTREMITIES: No cyanosis, clubbing, or pedal edema. NEUROLOGICAL: Gross neurological examination did not reveal any focal deficits. SKIN: No rashes. no petechiae. - Labs CBC & Chem 7: 10/16/24 04:20 10/16/24 04:20 Assessment and Plan Assessment: Uterine cancer with metastasis to the lung and lymph node Status getting radiotherapy currently Abdominal pain and vomiting and constipation, could be gastroenteritis, radiation enteritis versus bowel obstruction versus other Transaminitis Hypertension related to above Hypovolemic hyponatremia Possible liver cirrhosis Plan: continue with IV hydration Continue with stool softener Patient may benefit from enema Liver ultrasound and hepatitis panel Hematology/oncology team consult Continue with bowel rest, currently on liquid diet Labs and medication were reviewed.. Continue same treatment. Continue with symptomatic treatment. Resume home medication. Monitor labs and vitals. DVT and GI prophylaxis. Further recommendations as per clinical course of the patient DVT prophylaxis: Subcutaneous heparin GI Prophylaxis: Pepcid PT/OT: Pending Prognosis is guarded
[2024-10-18 07:57] LABS: HCT 30.5 % (37.2-46.3); HGB 9.7 g/dL (12.0-15.0); MCH 28.2 pg (27.0-32.0); MCHC 31.8 g/dL (32.0-37.0); MCV 88.7 FL (80.0-97.0); NRBC Per 100 WBC 0.06 X 10*3/uL (0.00-0.01); Platelet Count 205 X 10*3/uL (140-440); RBC 3.44 X 10*6/uL (4.10-5.20); RDW 19.4 % (11.5-14.5); WBC 3.58 X 10*3/uL (4.50-10.00)
[2024-10-18 08:30] LABS: Hepatitis A Antibody IgM Nonreactive (Nonreactive); Hepatitis B Surface Antigen Nonreactive (Nonreactive); Hepatitis C IgG Antibody Nonreactive (Nonreactive)
[2024-10-18 08:48] LABS: ALT 356 U/L (8-44); AST 1337 U/L (13-35); Albumin 2.8 g/dL (3.8-4.9); Albumin/Globulin Ratio 0.97 Ratio (1.60-3.17); Alkaline Phosphatase 2288 U/L (41-126); Anion Gap 11.20 mmol/L (4.00-12.00); BUN/Creat Ratio 12.40 Ratio (12.00-20.00); Bilirubin,Unconjugated 0.59 mg/dL (0.20-1.00); Blood Urea Nitrogen 6.2 mg/dL (9.0-27.0); Calcium 9.3 mg/dL (8.7-10.3); Carbon Dioxide 24.8 mmol/L (21.6-31.8); Chloride 96 mmol/L (96-109); Globulin 2.9 g/dL (1.6-3.3); Glucose 93 mg/dL (70-110); Potassium 3.6 mmol/L (3.5-5.5); Sodium 132 mmol/L (135-145); Total Protein 5.7 g/dL (6.2-8.2)
--- NOTE | 2024-10-18 09:36 | US ---
EXAMINATION TYPE: US liver doppler DATE OF EXAM: 10/18/2024 COMPARISON: CT abdomen pelvis 10/14/2024, abdominal ultrasound 10/14/2024 CLINICAL INDICATION: Female, 63 years old with history of elevated liver enz and pain; Pain EXAM MEASUREMENTS: Portal vein: Flow visualized Main Portal Vein diameter: 6 mm Flow direction: Hepatopedal Color flow patency seen within the main portal vein: yes Main portal vein shows a monophasic waveform: yes patency seen within the hepatic veins Known hepatic metastasis is better appreciated on recent CT. IMPRESSION: Patent portal and hepatic veins with normal hepatopedal flow. [facility], , 10/18/2024 9:34 AM
[2024-10-18 11:25] LABS: Basophils # (M) 0.04 X 10*3/uL (0.00-0.10); Eosinophils # (M) 0 X 10*3/uL (0.04-0.35); Lymphocytes # (M) 0.14 X 10*3/uL (0.90-5.00); Monocytes # (M) 0.25 X 10*3/uL (0.20-1.00); Neutrophils # (M) 3.04 X 10*3/uL (1.80-7.70); Neutrophils % (M) 85 %; Promyelocytes # (M) 0.04 k/uL (0)
--- NOTE | 2024-10-18 13:46 | P.PN ---
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 Patient currently undergoing radiotherapy. Presents because of abdominal pain nausea vomiting x 4 days associated with constipation. Abdominal pain was 10/10 currently 5/10 felt like sharp periumbilical increase with movement to decrease if she stays still. She did not have bowel movement for the last few days. Passing some gas. She vomited once but no blood was really bolus. She denies chest pain or dyspnea. No urinary complaint. No headache dizziness weakness numbness. She denies smoking alcohol or illicit drugs. Hemodynamically stable. Blood pressure was low on admission 86/53, currently 98/75. Sodium 131, ALT 200 and AST 747 and bilirubin 1.5 rest of CBC, basic metabolic panel were unremarkable. Ultrasound showed mild hydro ureteric nephrosis on the right side. Lobular contour of the liver suspicious for cirrhosis. 10/16 Looks pain control patient is sleepy Patient ate little bit She had little bowel movement Afebrile labs showing WBC 5.4 hemoglobin 9.7 and platelet count is normal at 219. BMP is unremarkable with sodium 133, potassium 3.4 and creatinine 0.7. 10/17 Patient was taking radiotherapy today She states she feels little better today she was able to eat little more. No significant abdominal wall pain Had 1 bowel movement mainly diarrhea Remains on Normosol 50 mL/h Will check liver enzymes still elevated this a.m. will check liver ultrasound and hepatitis panel 10/18 Patient still with abdominal pain and tenderness, she still tolerates some diet. No diarrhea today. No other new complaint. She is little bit more stronger. She is awake alert. I discussed the case with hematology/oncology team plan is to keep her and get her chemotherapy. Most likely patient will be stated over the weekend also Also liver enzymes slightly trending up. Liver ultrasound, CT of the abdomen failed to show acute process. Hepatic Doppler study showing no evidence of portal or hepatic venous thrombosis. Hepatitis panel also was unremarkable. Will continue medication review and monitoring Active Medications Generic Name Dose Route Start Last Admin Trade Name Freq PRN Reason Stop Dose Admin Hydrocodone Bitart/Acetaminophen 1 each 10/15/24 10:00 10/18/24 00:05 Hydrocodone/Apap 5-325mg 1 Each Tab PO 1 each Q4H GABRIEL Administration Bisacodyl 10 mg 10/16/24 12:54 Bisacodyl 10 Mg Supp RECTAL DAILY PRN Constipation Dextrose/Lactated Ringer's 1,000 mls @ 50 mls/hr 10/15/24 13:45 10/18/24 00:13 Dextrose 5%-Lr Iv Soln IV 50 mls/hr .Q20H GABRIEL Administration Lactulose 20 gm 10/15/24 09:00 10/17/24 09:15 Lactulose 20 Gm/30 Ml Cup PO 20 gm DAILY GABRIEL Administration Levothyroxine Sodium 100 mcg 10/15/24 06:30 10/17/24 05:27 Levothyroxine 100 Mcg Tab PO 100 mcg 0630 GABRIEL Administration Morphine Sulfate 15 mg 10/14/24 21:00 10/17/24 20:26 Morphine Sulfate Er 15 Mg Tablet PO 15 mg Q12HR GABRIEL Administration Protocol Ondansetron HCl 8 mg 10/14/24 17:13 10/18/24 00:11 Ondansetron 4 Mg/2 Ml Vial IVP 8 mg Q6HR PRN Administration Nausea And Vomiting Pantoprazole Sodium 40 mg 10/16/24 00:30 10/17/24 20:25 Pantoprazole 40 Mg/10 Ml Vial IVP 40 mg BID GABRIEL Administration Prochlorperazine Maleate 10 mg 10/14/24 17:12 10/16/24 05:09 Prochlorperazine 10 Mg Tab PO 10 mg Q6HR PRN Administration Nausea And Vomiting Scopolamine 1 patch 10/14/24 17:15 10/17/24 17:38 Scopolamine 1 Mg/72 Hr Patch TRANSDERM 1 patch Q72H GABRIEL Administration Senna/Docusate Sodium 2 each 10/14/24 21:00 10/17/24 20:38 Sennosides-Docusate Sodium 1 Each Tab PO 2 each BID GABRIEL Administration Sertraline HCl 50 mg 10/15/24 09:00 10/17/24 09:18 Sertraline 50 Mg Tab PO 50 mg DAILY GABRIEL Administration Objective - Vital Signs Vital signs: Vital Signs Temp 97.6 F 10/18/24 12:47 Pulse 77 10/18/24 12:47 Resp 17 10/18/24 12:47 BP 160/70 10/18/24 12:47 Pulse Ox 96 10/18/24 12:47 FiO2 Intake & Output 10/17/24 10/18/24 10/18/24 18:59 06:59 18:59 Intake Total 1710 Balance 1710 Intake: Intake, IV Titration 550 Amount Dextrose 5%-Lactated 550 Ringers 1,000 ml @ 50 mls /hr IV .Q20H [facility] Rx#: [id number] Oral 1160 Other: Voiding Method Toilet Toilet # Voids 4 1 # Bowel Movements 1 0 - Exam GENERAL: The patient is alert and oriented x3, not in any acute distress. Well developed, well nourished. HEENT: Pupils are round and equally reacting to light. EOMI. No scleral icterus. No conjunctival pallor. Normocephalic, atraumatic. No pharyngeal erythema. No thyromegaly. CARDIOVASCULAR: S1 and S2 present. No murmurs, rubs, or gallops. PULMONARY: Chest is clear to auscultation, no wheezing , no crackles. -ABDOMEN: Soft, periumbilical tenderness with no guarding or rebound tenderness mildly distended, normoactive bowel sounds. No palpable organomegaly. MUSCULOSKELETAL: No joint swelling or deformity. EXTREMITIES: No cyanosis, clubbing, or pedal edema. NEUROLOGICAL: Gross neurological examination did not reveal any focal deficits. SKIN: No rashes. no petechiae. - Labs CBC & Chem 7: 10/18/24 04:55 10/18/24 04:55 Labs: Abnormal Lab Results - Last 24 Hours (Table) 10/18/24 10/18/24 Range/Units 04:55 04:55 WBC 3.58 L (4.50-10.00) X 10*3/uL RBC 3.44 L (4.10-5.20) X 10*6/uL Hgb 9.7 L (12.0-15.0) g/dL Hct 30.5 L (37.2-46.3) % MCHC 31.8 L (32.0-37.0) g/dL RDW 19.4 H (11.5-14.5) % MPV 9.2 L (9.5-12.2) FL Lymphocytes # (Manual) 0.14 L (0.90-5.00) X 10*3/uL Eosinophils # (Manual) 0 L (0.04-0.35) X 10*3/uL NRBC/100 WBC Diff 0.06 H (0.00-0.01) X 10*3/uL Sodium 132 L (135-145) mmol/L BUN 6.2 L (9.0-27.0) mg/dL Creatinine 0.5 L (0.6-1.5) mg/dL Total Bilirubin 2.6 H (0.3-1.2) mg/dL Conjugated Bilirubin 2.01 H (0.20-0.40) mg/dL AST 1337 H (13-35) U/L ALT 356 H (8-44) U/L Alkaline Phosphatase 2288 H (41-126) U/L Total Protein 5.7 L (6.2-8.2) g/dL Albumin 2.8 L (3.8-4.9) g/dL Albumin/Globulin Ratio 0.97 L (1.60-3.17) Ratio Assessment and Plan Assessment: Uterine cancer with metastasis to the lung and lymph node Status getting radiotherapy currently Abdominal pain and vomiting and constipation, could be gastroenteritis, radiation enteritis versus bowel obstruction versus other Transaminitis Hypertension related to above Hypovolemic hyponatremia Possible liver cirrhosis Plan: continue with IV hydration Plan for chemotherapy while in house Monitor liver enzymes. No GI service in this facility during this week of service Continue with stool softener Patient may benefit from enema Liver ultrasound and hepatitis panel Hematology/oncology team consult Continue with bowel rest, currently on liquid diet Labs and medication were reviewed.. Continue same treatment. Continue with symptomatic treatment. Resume home medication. Monitor labs and vitals. DVT and GI prophylaxis. Further recommendations as per clinical course of the patie nt DVT prophylaxis: Subcutaneous heparin GI Prophylaxis: Pepcid PT/OT: Pending Prognosis is guarded
[2024-10-18 14:48] VITALS: BMI 30.2
--- NOTE | 2024-10-18 17:37 | P.PN ---
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 She has cont on radiation since admit. It is noted that her LFTs cont to increase, her left supraclavicular mass is enlarging and she is having more pain in the groin. She doesnt hurt as long as she doesn't move much. No fever, vomiting, SOB, diarrhea or swelling in legs. Objective - Vital Signs Vital signs: Vital Signs Temp 97.6 F 10/18/24 12:47 Pulse 77 10/18/24 12:47 Resp 17 10/18/24 12:47 BP 160/70 10/18/24 12:47 Pulse Ox 96 10/18/24 12:47 FiO2 Intake & Output 10/17/24 10/18/24 10/18/24 18:59 06:59 18:59 Intake Total 1710 Balance 1710 Weight 70.307 kg Intake: Intake, IV Titration 550 Amount Dextrose 5%-Lactated 550 Ringers 1,000 ml @ 50 mls /hr IV .Q20H [facility] Rx#: [id number] Oral 1160 Other: Voiding Method Toilet Toilet # Voids 4 1 # Bowel Movements 1 0 - Constitutional General appearance: Present: average body habitus, cooperative, no acute distress - EENT Eyes: Present: anicteric sclerae, EOMI ENT: Present: hearing grossly normal - Respiratory Details: resp unlabored at rest - Cardiovascular Details: radial pulse 2+ - Peripheral edema leg Peripheral Edema: bilateral: None - Gastrointestinal General gastrointestinal: Present: distended, soft, tenderness - Integumentary Integumentary: Present: pale - Neurologic Neurologic: Present: CNII-XII intact - Musculoskeletal Musculoskeletal: Present: strength equal bilaterally - Psychiatric Psychiatric: Present: A&O x's 3, appropriate affect, intact judgment & insight - Labs CBC & Chem 7: 10/18/24 04:55 10/18/24 04:55 Labs: Abnormal Lab Results - Last 24 Hours (Table) 10/18/24 10/18/24 Range/Units 04:55 04:55 WBC 3.58 L (4.50-10.00) X 10*3/uL RBC 3.44 L (4.10-5.20) X 10*6/uL Hgb 9.7 L (12.0-15.0) g/dL Hct 30.5 L (37.2-46.3) % MCHC 31.8 L (32.0-37.0) g/dL RDW 19.4 H (11.5-14.5) % MPV 9.2 L (9.5-12.2) FL Lymphocytes # (Manual) 0.14 L (0.90-5.00) X 10*3/uL Eosinophils # (Manual) 0 L (0.04-0.35) X 10*3/uL NRBC/100 WBC Diff 0.06 H (0.00-0.01) X 10*3/uL Sodium 132 L (135-145) mmol/L BUN 6.2 L (9.0-27.0) mg/dL Creatinine 0.5 L (0.6-1.5) mg/dL Total Bilirubin 2.6 H (0.3-1.2) mg/dL Conjugated Bilirubin 2.01 H (0.20-0.40) mg/dL AST 1337 H (13-35) U/L ALT 356 H (8-44) U/L Alkaline Phosphatase 2288 H (41-126) U/L Total Protein 5.7 L (6.2-8.2) g/dL Albumin 2.8 L (3.8-4.9) g/dL Albumin/Globulin Ratio 0.97 L (1.60-3.17) Ratio - Imaging and Cardiology liver US report reviewed Assessment and Plan (1) Intractable vomiting Current Visit: Yes Status: Acute Priority: High Code(s): R11.10 - VOMITI NG, UNSPECIFIED SNOMED Code(s): 367731884 (2) Constipation Current Visit: Yes Status: Acute Priority: High Code(s): K59.00 - CONSTIPATION, UNSPECIFIED SNOMED Code(s): 02116386 (3) History of cervical cancer Current Visit: Yes Status: Acute Priority: High Code(s): Z85.41 - PERSONAL HISTORY OF MALIGNANT NEOPLASM OF CERVIX UTERI SNOMED Code(s): 812862827 Plan: Intractable vomiting, constipation -Pt presenting with intractable vomiting and constipation -likely 2/2 disease in abd, radiation and pain exacerbated from constipation -antiemetic regimen modified -medications to promote BM ordered-pt has had BM 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 It is felt that pt condition is continuing to decline. Systemic treatment needs to be started. Risks vs benefits of treatment were discussed with pt and sister. They verbalized understanding risks, pt consented to go ahead with chemo tomorrow. Last 2 radiation treatments will be held. Carbo/taxol will be given inpt tomorrow (avastin cannot be given inpt). Orders have been sent, unit charge Nurse informed. -Supportive meds for chemo ordered. -Pt states she is unable to get to Oncology ENT for evaluation of the abnormal findings in imaging of the neck. Not sure what can be done locally, if anything. Best option would be to start treatment-carbo/taxol/avastin-as the lumbee and taxane would potentially have effect on head/neck malignancy. Carbo/taxol will start 10/19.
[2024-10-18 19:11] LABS: INR 1.2 (<1.2); Partial Thromboplastin Time 28.3 sec (22.0-30.0); Prothrombin Time 13.2 sec (10.0-12.5)
[2024-10-18] MEDS: SALT AND SODA MOUTHWASH 1,000 ML PO SCH (23:34)
[2024-10-18] MEDS: ONDANSETRON 4 MG/2 ML VIAL IVP PRN (23:38)
[2024-10-19 10:18] LABS: Basophils # (M) 0 X 10*3/uL (0.00-0.10); Eosinophils # (M) 0.05 X 10*3/uL (0.04-0.35); HCT 28.8 % (37.2-46.3); HGB 9.3 g/dL (12.0-15.0); Lymphocytes # (M) 0.09 X 10*3/uL (0.90-5.00); MCH 28.4 pg (27.0-32.0); MCHC 32.3 g/dL (32.0-37.0); MCV 87.8 FL (80.0-97.0); Monocytes # (M) 0.27 X 10*3/uL (0.20-1.00); NRBC Per 100 WBC 0.08 X 10*3/uL (0.00-0.01); Neutrophils # (M) 3.95 X 10*3/uL (1.80-7.70); Neutrophils % (M) 87 %; Platelet Count 177 X 10*3/uL (140-440); RBC 3.28 X 10*6/uL (4.10-5.20); RDW 19.7 % (11.5-14.5); WBC 4.54 X 10*3/uL (4.50-10.00)
[2024-10-19 10:33] LABS: AST 1026 U/L (13-35); Alkaline Phosphatase 2304 U/L (41-126)
[2024-10-19 10:37] LABS: ALT 312 U/L (8-44); Albumin 2.8 g/dL (3.8-4.9); Albumin/Globulin Ratio 1.08 Ratio (1.60-3.17); Anion Gap 11.40 mmol/L (4.00-12.00); BUN/Creat Ratio 11.50 Ratio (12.00-20.00); Blood Urea Nitrogen 6.9 mg/dL (9.0-27.0); Calcium 9.2 mg/dL (8.7-10.3); Carbon Dioxide 23.6 mmol/L (21.6-31.8); Chloride 97 mmol/L (96-109); Globulin 2.6 g/dL (1.6-3.3); Glucose 90 mg/dL (70-110); Potassium 3.5 mmol/L (3.5-5.5); Sodium 132 mmol/L (135-145); Total Protein 5.4 g/dL (6.2-8.2)
--- NOTE | 2024-10-19 10:45 | P.PN ---
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 Patient currently undergoing radiotherapy. Presents because of abdominal pain nausea vomiting x 4 days associated with constipation. Abdominal pain was 10/10 currently 5/10 felt like sharp periumbilical increase with movement to decrease if she stays still. She did not have bowel movement for the last few days. Passing some gas. She vomited once but no blood was really bolus. She denies chest pain or dyspnea. No urinary complaint. No headache dizziness weakness numbness. She denies smoking alcohol or illicit drugs. Hemodynamically stable. Blood pressure was low on admission 86/53, currently 98/75. Sodium 131, ALT 200 and AST 747 and bilirubin 1.5 rest of CBC, basic metabolic panel were unremarkable. Ultrasound showed mild hydro ureteric nephrosis on the right side. Lobular contour of the liver suspicious for cirrhosis. 10/16 Looks pain control patient is sleepy Patient ate little bit She had little bowel movement Afebrile labs showing WBC 5.4 hemoglobin 9.7 and platelet count is normal at 219. BMP is unremarkable with sodium 133, potassium 3.4 and creatinine 0.7. 10/17 Patient was taking radiotherapy today She states she feels little better today she was able to eat little more. No significant abdominal wall pain Had 1 bowel movement mainly diarrhea Remains on Normosol 50 mL/h Will check liver enzymes still elevated this a.m. will check liver ultrasound and hepatitis panel 10/18 Patient still with abdominal pain and tenderness, she still tolerates some diet. No diarrhea today. No other new complaint. She is little bit more stronger. She is awake alert. I discussed the case with hematology/oncology team plan is to keep her and get her chemotherapy. Most likely patient will be stated over the weekend also Also liver enzymes slightly trending up. Liver ultrasound, CT of the abdomen failed to show acute process. Hepatic Doppler study showing no evidence of portal or hepatic venous thrombosis. Hepatitis panel also was unremarkable. Will continue medication review and monitoring 10/19 Patient remains on full liquid diet No vomiting Her abdominal pain is 09/18 Plan to get chemotherapy with oncology team. Patient is seen over the weekend. Patient aware of the plan and she is agreeable Objective - Vital Signs Vital signs: Vital Signs Temp 97.9 F 10/19/24 08:00 Pulse 92 10/19/24 08:00 Resp 20 10/19/24 08:00 BP 134/71 10/19/24 08:00 Pulse Ox 92 L 10/19/24 08:00 FiO2 Intake & Output 10/18/24 10/19/24 10/19/24 18:59 06:59 18:59 Intake Total 540 Balance 540 Weight 70.307 kg Intake: Oral 540 Other: Voiding Method Toilet # Voids 5 - Exam GENERAL: The patient is alert and oriented x3, not in any acute distress. Well developed, well nourished. HEENT: Pupils are round and equally reacting to light. EOMI. No scleral icterus. No conjunctival pallor. Normocephalic, atraumatic. No pharyngeal erythema. No thyromegaly. CARDIOVASCULAR: S1 and S2 present. No murmurs, rubs, or gallops. PULMONARY: Chest is clear to auscultation, no wheezing , no crackles. -ABDOMEN: Soft, periumbilical tenderness with no guarding or rebound tenderness mildly distended, normoactive bowel sounds. No palpable organomegaly. MUSCULOSKELETAL: No joint swelling or deformity. EXTREMITIES: No cyanosis, clubbing, or pedal edema. NEUROLOGICAL: Gross neurological examination did not reveal any focal deficits. SKIN: No rashes. no petechiae. - Labs CBC & Chem 7: 10/19/24 06:09 10/19/24 06:09 Labs: Abnormal Lab Results - Last 24 Hours (Table) 10/18/24 10/18/24 10/19/24 Range/Units 04:55 18:23 06:09 RBC 3.28 L (4.10-5.20) X 10*6/uL Hgb 9.3 L (12.0-15.0) g/dL Hct 28.8 L (37.2-46.3) % RDW 19.7 H (11.5-14.5) % Lymphocytes # (Manual) 0.14 L 0.09 L (0.90-5.00) X 10*3/uL Eosinophils # (Manual) 0 L (0.04-0.35) X 10*3/uL NRBC/100 WBC Diff 0.08 H (0.00-0.01) X 10*3/uL PT 13.2 H (10.0-12.5) sec INR 1.2 H (<1.2) Sodium (135-145) mmol/L BUN (9.0-27.0) mg/dL BUN/Creatinine Ratio (12.00-20.00) Ratio Total Bilirubin (0.3-1.2) mg/dL AST (13-35) U/L ALT (8-44) U/L Alkaline Phosphatase (41-126) U/L Total Protein (6.2-8.2) g/dL Albumin (3.8-4.9) g/dL Albumin/Globulin Ratio (1.60-3.17) Ratio // Range/Units 06:09 RBC (4.10-5.20) X 10*6/uL Hgb (12.0-15.0) g/dL Hct (37.2-46.3) % RDW (11.5-14.5) % Lymphocytes # (Manual) (0.90-5.00) X 10*3/uL Eosinophils # (Manual) (0.04-0.35) X 10*3/uL NRBC/100 WBC Diff (0.00-0.01) X 10*3/uL PT (10.0-12.5) sec INR (<1.2) Sodium 132 L (135-145) mmol/L BUN 6.9 L (9.0-27.0) mg/dL BUN/Creatinine Ratio 11.50 L (12.00-20.00) Ratio Total Bilirubin 2.9 H (0.3-1.2) mg/dL AST 1026 H (13-35) U/L ALT 312 H (8-44) U/L Alkaline Phosphatase 2304 H (41-126) U/L Total Protein 5.4 L (6.2-8.2) g/dL Albumin 2.8 L (3.8-4.9) g/dL Albumin/Globulin Ratio 1.08 L (1.60-3.17) Ratio Assessment and Plan Assessment: Uterine cancer with metastasis to the lung and lymph node Status getting radiotherapy currently Abdominal pain and vomiting and constipation, could be gastroenteritis, radiation enteritis versus bowel obstruction versus other Transaminitis Hypertension related to above Hypovolemic hyponatremia Possible liver cirrhosis Plan: continue with IV hydration Plan for chemotherapy while in house Monitor liver enzymes. No GI service in this facility during this week of service Continue with stool softener Patient may benefit from enema Liver ultrasound and hepatitis panel Hematology/oncology team consult Continue with bowel rest, currently on liquid diet Labs and medication were reviewed.. Continue same treatment. Continue with symptomatic treatment. Resume home medication. Monitor labs and vitals. DVT and GI prophylaxis. Further recommendations as per clinical course of the patient DVT prophylaxis: Subcutaneous heparin GI Prophylaxis: Pepcid PT/OT: Pending Prognosis is guarded
[2024-10-19] MEDS: diphenhydrAMINE 50 MG/ML 1 ML VIAL IVP ONE (12:04)
[2024-10-19] MEDS: FAMOTIDINE 20 MG/2 ML VIAL IV ONE (12:05)
[2024-10-19] MEDS: ONDANSETRON 16 MG in SODIUM CHLORIDE 0.9% 50 ML IVPB ONE (12:07)
[2024-10-19] MEDS: DEXAMETHASONE SOD PHOS (MDV) 20 MG in DEXTROSE 5% IN WATER 50 ML IVPB ONE (12:29)
[2024-10-19] MEDS: PACLITAXEL IV ONE (13:34)
[2024-10-19] MEDS: SODIUM CHLORIDE 0.9% IV ONE (13:34)
[2024-10-19] MEDS: CARBOplatin 550 MG in SODIUM CHLORIDE 0.9% 250 ML IV ONE (18:23)
--- NOTE | 2024-10-19 18:47 | CT ---
EXAMINATION TYPE: CT brain wo con CT DLP: 1126.1 mGycm, Automated exposure control for dose reduction was used. DATE OF EXAM: 10/19/2024 6:31 PM COMPARISON: MRI brain 08/23/2024. CLINICAL INDICATION:Female, 63 years old with history of Confusion, metastatic cervical cancer, Incre ased confusion after chemo treatment today. TECHNIQUE: Brain: Axial CT images of the brain were obtained with coronal and sagittal reformats created and rev iewed. Contrast used: None. Oral contrast used: None. FINDINGS: Brain: Extra-axial spaces: No abnormal extra-axial fluid collections. Ventricular system: Within normal limits Cerebral parenchyma: No acute intraparenchymal hemorrhage or mass effect. The strickland-white junction is well differentiated. Cerebellum: Unremarkable. Mass effect: No evidence of midline shift. Intracranial vasculature: unremarkable Soft tissues: Normal. Calvarium/osseous structures: No depressed skull fracture. Paranasal sinuses and mastoid air cells: Mild scattered paranasal sinus disease. Visualized orbits: Orbital contents are intact. IMPRESSION: No acute intracranial process. If clinical concern for metastatic disease or other underlying ischemic process is present consider M RI brain with IV contrast. [facility], , 10/19/2024 6:44 PM
--- NOTE | 2024-10-19 19:41 | P.PN ---
Subjective Progress Note Date: 10/19/24 Inpt chemo started today. Pt appears more confused at todays visit. Nursing states this started after IVP benadryl, however confusion has been persisting. Will obtain CT brain to further evaluate. HDS Objective - Vital Signs Vital signs: Vital Signs Temp 97.5 F L 10/19/24 12:45 Pulse 93 10/19/24 12:45 Resp 20 10/19/24 12:45 BP 149/71 10/19/24 12:45 Pulse Ox 92 L 10/19/24 12:45 FiO2 Intake & Output 10/18/24 10/19/24 10/19/24 18:59 06:59 18:59 Intake Total 540 134.167 Output Total 200 Balance 540 -65.833 Weight 70.307 kg Intake: Intake, IV Titration 134.167 Amount Ondansetron 16 mg In 50 Sodium Chloride 0.9% 50 ml @ 232 mls/hr IVPB ONCE ONE Rx#:[id number] PACLitaxeL 294 mg In 84.167 Sodium Chloride 0.9% 500 ml 500 ml @ As Directed IV .Q0M ONE Rx#:[id number] Oral 540 Output: Emesis 200 Other: Voiding Method Toilet # Voids 5 1 - Constitutional General appearance: Present: no acute distress - EENT Eyes: Present: anicteric sclerae ENT: Present: hearing grossly normal - Respiratory Details: breathing is even and unlabored - Cardiovascular Details: skin warm and dry - Gastrointestinal General gastrointestinal: Present: soft. Absent: tenderness - Integumentary Integumentary: Present: jaundiced - Labs CBC & Chem 7: 10/19/24 06:09 10/19/24 06:09 Labs: Abnormal Lab Results - Last 24 Hours (Table) 10/18/24 10/19/24 10/19/24 Range/Units 18:23 06:09 06:09 RBC 3.28 L (4.10-5.20) X 10*6/uL Hgb 9.3 L (12.0-15.0) g/dL Hct 28.8 L (37.2-46.3) % RDW 19.7 H (11.5-14.5) % Lymphocytes # (Manual) 0.09 L (0.90-5.00) X 10*3/uL NRBC/100 WBC Diff 0.08 H (0.00-0.01) X 10*3/uL PT 13.2 H (10.0-12.5) sec INR 1.2 H (<1.2) Sodium 132 L (135-145) mmol/L BUN 6.9 L (9.0-27.0) mg/dL BUN/Creatinine Ratio 11.50 L (12.00-20.00) Ratio Total Bilirubin 2.9 H (0.3-1.2) mg/dL AST 1026 H (13-35) U/L ALT 312 H (8-44) U/L Alkaline Phosphatase 2304 H (41-126) U/L Total Protein 5.4 L (6.2-8.2) g/dL Albumin 2.8 L (3.8-4.9) g/dL Albumin/Globulin Ratio 1.08 L (1.60-3.17) Ratio Assessment and Plan (1) Abdominal pain Current Visit: Yes Status: Acute Code(s): R10.9 - UNSPECIFIED ABDOMINAL PAIN SNOMED Code(s): 61060497 (2) History of cervical cancer Current Visit: Yes Status: Acute Priority: High Code(s): Z85.41 - PERSONAL HISTORY OF MALIGNANT NEOPLASM OF CERVIX UTERI SNOMED Code(s): 986563537 (3) Intractable vomiting Current Visit: Yes Status: Acute Priority: High Code(s): R11.10 - VOMITING, UNSPECIFIED SNOMED Code(s): 475984070 (4) Transaminitis Current Visit: Yes Status: Acute Code(s): R74.01 - ELEVATION OF LEVELS OF LIVER TRANSAMINASE LEVELS SNOMED Code(s): 130686678 Plan: Intractable vomiting, constipation Pt presenting with intractable vomiting and constipation -likely 2/2 disease in abd, radiation and pain exacerbated from constipation -antiemetic regimen modified, n/v improving -medications to promote BM ordered-pt has had BM 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 It is felt that pt condition is continuing to decline. Systemic treatment needs to be started. Risks vs benefits of treatment were discussed with pt and sister. They verbalized understanding risks, pt consented to go ahead with chemo tomorrow. Last 2 radiation treatments will be held. Carbo/taxol will be given inpt tomorrow (avastin cannot be given inpt, will be added with subsequent cycles). Chemo Orders have been placed -Supportive meds for chemo ordered. -Pt states she is unable to get to Oncology ENT for evaluation of the abnormal findings in imaging of the neck. Not sure what can be done locally, if anything. Best option would be to start treatment-carbo/taxol/avastin-as the chit[place] and taxane would potentially have effect on head/neck malignancies. Confusion: Increased confusion noted at todays visit -May be side affect of pre-meds? -Will obtain CT brain to r/o other acute etiologies attests: I have performed H&P and developed impression and plan of care for patient, discussed with dictator. I agree with dictated note, documented as a scribe
[2024-10-20 08:47] LABS: HCT 29.4 % (37.2-46.3); HGB 9.6 g/dL (12.0-15.0); MCH 28.3 pg (27.0-32.0); MCHC 32.7 g/dL (32.0-37.0); MCV 86.7 FL (80.0-97.0); NRBC Per 100 WBC 0.24 X 10*3/uL (0.00-0.01); Platelet Count 148 X 10*3/uL (140-440); RBC 3.39 X 10*6/uL (4.10-5.20); RDW 20.2 % (11.5-14.5); WBC 4.68 X 10*3/uL (4.50-10.00)
[2024-10-20 09:53] LABS: Anisocytosis (M) 2+ (None Seen); Basophils # (M) 0 X 10*3/uL (0.00-0.10); Eosinophils # (M) 0 X 10*3/uL (0.04-0.35); Lymphocytes # (M) 0.19 X 10*3/uL (0.90-5.00); Monocytes # (M) 0.09 X 10*3/uL (0.20-1.00); Neutrophils # (M) 4.12 X 10*3/uL (1.80-7.70); Neutrophils % (M) 88 %; Promyelocytes # (M) 0.05 k/uL (0); Sickle Cells 2+ (None Seen); Stomatocytes 2+ (None Seen); Target Cells 2+ (None Seen)
[2024-10-20 10:23] LABS: ALT 266 U/L (8-44); AST 850 U/L (13-35); Albumin 2.8 g/dL (3.8-4.9); Albumin/Globulin Ratio 1.00 Ratio (1.60-3.17); Alkaline Phosphatase 2399 U/L (41-126); Anion Gap 14.50 mmol/L (4.00-12.00); BUN/Creat Ratio 14.50 Ratio (12.00-20.00); Blood Urea Nitrogen 8.7 mg/dL (9.0-27.0); Calcium 8.3 mg/dL (8.7-10.3); Carbon Dioxide 24.5 mmol/L (21.6-31.8); Chloride 98 mmol/L (96-109); Globulin 2.8 g/dL (1.6-3.3); Glucose 137 mg/dL (70-110); Potassium 3.4 mmol/L (3.5-5.5); Sodium 137 mmol/L (135-145); Total Protein 5.6 g/dL (6.2-8.2)
[2024-10-20] MEDS ORDERED: Potassium Replacement Protocol 1 EACH MISC MISCELLANE PRN ×2 (11:50→21:28)
[2024-10-20] MEDS: MAGNESIUM OXIDE 400 MG TAB PO SCH (13:26)
--- NOTE | 2024-10-20 19:15 | P.PN ---
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 Patient currently undergoing radiotherapy. Presents because of abdominal pain nausea vomiting x 4 days associated with constipation. Abdominal pain was 10/10 currently 5/10 felt like sharp periumbilical increase with movement to decrease if she stays still. She did not have bowel movement for the last few days. Passing some gas. She vomited once but no blood was really bolus. She denies chest pain or dyspnea. No urinary complaint. No headache dizziness weakness numbness. She denies smoking alcohol or illicit drugs. Hemodynamically stable. Blood pressure was low on admission 86/53, currently 98/75. Sodium 131, ALT 200 and AST 747 and bilirubin 1.5 rest of CBC, basic metabolic panel were unremarkable. Ultrasound showed mild hydro ureteric nephrosis on the right side. Lobular contour of the liver suspicious for cirrhosis. 10/16 Looks pain control patient is sleepy Patient ate little bit She had little bowel movement Afebrile labs showing WBC 5.4 hemoglobin 9.7 and platelet count is normal at 219. BMP is unremarkable with sodium 133, potassium 3.4 and creatinine 0.7. 10/17 Patient was taking radiotherapy today She states she feels little better today she was able to eat little more. No significant abdominal wall pain Had 1 bowel movement mainly diarrhea Remains on Normosol 50 mL/h Will check liver enzymes still elevated this a.m. will check liver ultrasound and hepatitis panel 10/18 Patient still with abdominal pain and tenderness, she still tolerates some diet. No diarrhea today. No other new complaint. She is little bit more stronger. She is awake alert. I discussed the case with hematology/oncology team plan is to keep her and get her chemotherapy. Most likely patient will be stated over the weekend also Also liver enzymes slightly trending up. Liver ultrasound, CT of the abdomen failed to show acute process. Hepatic Doppler study showing no evidence of portal or hepatic venous thrombosis. Hepatitis panel also was unremarkable. Will continue medication review and monitoring 10/19 Patient remains on full liquid diet No vomiting Her abdominal pain is 6 Plan to get chemotherapy with oncology team. Patient is seen over the weekend. Patient aware of the plan and she is agreeable 10/20 Patient is little bit No nausea vomiting Same abdominal pain No bowel movement Objective - Vital Signs Vital signs: Vital Signs Temp 97.8 F 10/20/24 07:12 Pulse 104 H 10/20/24 07:12 Resp 14 10/20/24 07:12 BP 123/73 10/20/24 07:12 Pulse Ox 95 10/20/24 07:12 FiO2 Intake & Output 10/19/24 10/20/24 10/20/24 18:59 06:59 18:59 Intake Total 1149.000 840 Output Total 200 Balance 949.000 840 Intake: Intake, IV Titration 1149.000 600 Amount Dexamethasone Sod Phos ( 50 Mdv) 20 mg In Dextrose 5% in Water 50 ml @ 100 mls /hr IVPB ONCE ONE Rx#: [id number] Dextrose 5%-Lactated 500 600 Ringers 1,000 ml @ 50 mls /hr IV .Q20H GABRIEL Rx#: [id number] Ondansetron 16 mg In 50 Sodium Chloride 0.9% 50 ml @ 232 mls/hr IVPB ONCE ONE Rx#:[id number] PACLitaxeL 294 mg In 549.000 Sodium Chloride 0.9% 500 ml 500 ml @ As Directed IV .Q0M ONE Rx#:[id number] Oral 240 Output: Emesis 200 Other: Voiding Method Toilet # Voids 1 3 # Bowel Movements 1 - Exam GENERAL: The patient is alert and oriented x3, not in any acute distress. Well developed, well nourished. HEENT: Pupils are round and equally reacting to light. EOMI. No scleral icterus. No conjunctival pallor. Normocephalic, atraumatic. No pharyngeal erythema. No thyromegaly. CARDIOVASCULAR: S1 and S2 present. No murmurs, rubs, or gallops. PULMONARY: Chest is clear to auscultation, no wheezing , no crackles. -ABDOMEN: Soft, periumbilical tenderness with no guarding or rebound tenderness mildly distended, normoactive bowel sounds. No palpable organomegaly. MUSCULOSKELETAL: No joint swelling or deformity. EXTREMITIES: No cyanosis, clubbing, or pedal edema. NEUROLOGICAL: Gross neurological examination did not reveal any focal deficits. SKIN: No rashes. no petechiae. - Labs CBC & Chem 7: 10/20/24 05:23 10/20/24 05:23 Labs: Abnormal Lab Results - Last 24 Hours (Table) 10/20/24 10/20/24 Range/Units 05:23 05:23 RBC 3.39 L (4.10-5.20) X 10*6/uL Hgb 9.6 L (12.0-15.0) g/dL Hct 29.4 L (37.2-46.3) % RDW 20.2 H (11.5-14.5) % Lymphocytes # (Manual) 0.19 L (0.90-5.00) X 10*3/uL Monocytes # (Manual) 0.09 L (0.20-1.00) X 10*3/uL Eosinophils # (Manual) 0 L (0.04-0.35) X 10*3/uL NRBC/100 WBC Diff 0.24 H (0.00-0.01) X 10*3/uL Anisocytosis (manual) 2+ A (None Seen) Sickle Cells 2+ A (None Seen) Target Cells 2+ A (None Seen) Stomatocytes 2+ A (None Seen) Potassium 3.4 L (3.5-5.5) mmol/L Anion Gap 14.50 H (4.00-12.00) mmol/L BUN 8.7 L (9.0-27.0) mg/dL Glucose 137 H (70-110) mg/dL Calcium 8.3 L (8.7-10.3) mg/dL Total Bilirubin 4.9 H (0.3-1.2) mg/dL AST 850 H (13-35) U/L ALT 266 H (8-44) U/L Alkaline Phosphatase 2399 H (41-126) U/L Total Protein 5.6 L (6.2-8.2) g/dL Albumin 2.8 L (3.8-4.9) g/dL Albumin/Globulin Ratio 1.00 L (1.60-3.17) Ratio Assessment and Plan Assessment: Uterine cancer with metastasis to the lung and lymph node Status getting radiotherapy currently Abdominal pain and vomiting and constipation, could be gastroenteritis, radiation enteritis versus bowel obstruction versus other Transaminitis Hypertension related to above Hypovolemic hyponatremia Possible liver cirrhosis Plan: continue with IV hydration Plan for chemotherapy while in house Monitor liver enzymes. No GI service in this facility during this week of service Continue with stool softener Patient may benefit from enema Liver ultrasound and hepatitis panel Hematology/oncology team consult Continue with bowel rest, currently on liquid diet Labs and medication were reviewed.. Continue same treatment. Continue with symptomatic treatment. Resume home medication. Monitor labs and vitals. DVT and GI prophylaxis. Further recommendations as per clinical course of the patient DVT prophylaxis: Subcutaneous heparin GI Prophylaxis: Pepcid PT/OT: Pending Prognosis is guarded
[2024-10-20] MEDS: POTASSIUM BICARBONATE/CIT AC 20 MEQ TABLET.EFF NG-TUBE SCH (22:03)
[2024-10-21 01:19] LABS: Basophils # (A) 0.02 10*3/uL (0.00-0.10); Basophils % (A) 0.5 %; Eosinophils # (A) 0.00 10*3/uL (0.04-0.35); Eosinophils % (A) 0.0 %; HCT 29.3 % (37.2-46.3); Lymphocytes # (A) 0.09 10*3/uL (0.90-5.00); Lymphocytes % (A) 2.1 %; MCH 28.8 pg (27.0-32.0); MCHC 33.1 g/dL (32.0-37.0); MCV 86.9 fL (80.0-97.0); Monocytes # (A) 0.04 10*3/uL (0.20-1.00); Monocytes % (A) 0.9 %; Neutrophils # (A) 4.14 10*3/uL (1.80-7.70); Neutrophils % (A) 94.4 %; RBC 3.37 10*6/uL (4.10-5.20); RDW 20.3 % (11.5-14.5); WBC 4.38 10*3/uL (4.50-10.00)
[2024-10-21 01:38] LABS: ALT 215 U/L (4-34); AST 662 U/L (14-36); African American GFR (CKD) >90 (>60 ml/min/1.73 sqM); Albumin 2.7 g/dL (3.5-5.0); Albumin/Globulin Ratio 0.9; Anion Gap 5 mmol/L; Blood Urea Nitrogen 18 mg/dL (7-17); Calcium 8.9 mg/dL (8.4-10.2); Carbon Dioxide 31 mmol/L (22-30); Chloride 99 mmol/L (98-107); Globulin 3.0 g/dL; Glucose 113 mg/dL (74-99); Magnesium 2.1 mg/dL (1.6-2.3); Non-African American GFR(CKD) >90 (>60 ml/min/1.73 sqM); Potassium 3.7 mmol/L (3.5-5.1); Sodium 135 mmol/L (137-145); Total Protein 5.7 g/dL (6.3-8.2)
[2024-10-21 02:12] LABS: Alkaline Phosphatase 2388 U/L (38-126)
[2024-10-21 02:18] LABS: HGB 9.7 g/dL (12.0-15.0); Platelet Count 109 10*3/uL (140-440)
--- NOTE | 2024-10-21 15:51 | P.PN ---
Subjective Progress Note Date: 10/21/24 S/p cycle 1 inpt chemo, carbo/taxol. Tolerated treatment. Pt still having intermittent n/v, 1 episode this morning with improvement with zofran. Confusion persisting, CT brain negative for acute processes. AST/ALT improving, bilirubin stable at 4.8. Continues lactulose daily Objective - Vital Signs Vital signs: Vital Signs Temp 97.4 F L 10/21/24 13:34 Pulse 94 10/21/24 13:34 Resp 16 10/21/24 13:34 BP 113/70 10/21/24 13:34 Pulse Ox 92 L 10/21/24 13:34 FiO2 Intake & Output 10/20/24 10/21/24 10/21/24 18:59 06:59 18:59 Intake Total 1320 950 Balance 1320 950 Intake: Oral 1320 950 Other: Voiding Method Toilet # Voids 5 3 - Constitutional General appearance: Present: no acute distress - EENT Eyes: Present: scleral icterus - Respiratory Details: breathing is even and unlabored - Cardiovascular Details: skin warm and dry - Gastrointestinal General gastrointestinal: Present: soft. Absent: tenderness - Integumentary Integumentary: Present: jaundiced. Absent: cyanotic - Musculoskeletal Musculoskeletal: Present: generalized weakness - Labs CBC & Chem 7: 10/21/24 00:55 10/21/24 00:55 Labs: Abnormal Lab Results - Last 24 Hours (Table) 10/21/24 10/21/24 Range/Units 00:55 00:55 WBC 4.38 L (4.50-10.00) 10*3/uL RBC 3.37 L (4.10-5.20) 10*6/uL Hgb 9.7 L D (12.0-15.0) g/dL Hct 29.3 L (37.2-46.3) % RDW 20.3 H (11.5-14.5) % Plt Count 109 L D (140-440) 10*3/uL Immature Gran # 0.09 H (0.00-0.04) 10*3/uL Lymphocytes # 0.09 L (0.90-5.00) 10*3/uL Monocytes # 0.04 L (0.20-1.00) 10*3/uL Eosinophils # 0.00 L (0.04-0.35) 10*3/uL Sodium 135 L (137-145) mmol/L Carbon Dioxide 31 H (22-30) mmol/L BUN 18 H (7-17) mg/dL Glucose 113 H (74-99) mg/dL Total Bilirubin 4.8 H (0.2-1.3) mg/dL AST 662 H (14-36) U/L ALT 215 H (4-34) U/L Alkaline Phosphatase 2388 H (38-126) U/L Total Protein 5.7 L (6.3-8.2) g/dL Albumin 2.7 L (3.5-5.0) g/dL Assessment and Plan (1) Abdominal pain Current Visit: Yes Status: Acute Code(s): R10.9 - UNSPECIFIED ABDOMINAL PAIN SNOMED Code(s): 21083823 (2) History of cervical cancer Current Visit: Yes Status: Acute Priority: High Code(s): Z85.41 - PERSONAL HISTORY OF MALIGNANT NEOPLASM OF CERVIX UTERI SNOMED Code(s): 385594460 (3) Intractable vomiting Current Visit: Yes Status: Acute Priority: High Code(s): R11.10 - VOMITING, UNSPECIFIED SNOMED Code(s): 524264715 (4) Transaminitis Current Visit: Yes Status: Acute Code(s): R74.01 - ELEVATION OF LEVELS OF LIVER TRANSAMINASE LEVELS SNOMED Code(s): 002291263 Plan: Intractable vomiting, constipation Pt presenting with intractable vomiting and constipation -likely 2/2 disease in abd, radiation and pain exacerbated from constipation -antiemetic regimen modified, n/v improved -medications to promote BM ordered-pt has had BM 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 It is felt that pt condition is continuing to decline. Systemic treatment needs to be started. Risks vs benefits of treatment were discussed with pt and sister. They verbalized understanding risks, pt consented to go ahead with chemo tomorrow. Last 2 radiation treatments will be held. Carbo/taxol will be given inpt tomorrow (avastin cannot be given inpt, will be added with subsequent cycles). -S/p cycle 1 carbo/taxol -Pt states she is unable to get to Oncology ENT for evaluation of the abnormal findings in imaging of the neck. Not sure what can be done locally, if anything. Best option would be to start treatment-carbo/taxol/avastin-as the [place] and taxane would potentially have effect on head/neck malignancies. Confusion: Increased confusion over the last couple days. Initially thought possible side effect of pre-meds, IVP benadryl. -CT brain showed no acute etiologies -Confusion persisting, likely related to acute liver failure r/t malignancy. Continue lactulose daily. -Continue to closely monitor. Repeat CMP in them morning
[2024-10-22 08:32] LABS: ALT 181 U/L (8-44); AST 615 U/L (13-35); Albumin 2.6 g/dL (3.8-4.9); Albumin/Globulin Ratio 1.08 Ratio (1.60-3.17); Alkaline Phosphatase 2270 U/L (41-126); Anion Gap 9.00 mmol/L (4.00-12.00); BUN/Creat Ratio 26.83 Ratio (12.00-20.00); Blood Urea Nitrogen 16.1 mg/dL (9.0-27.0); Calcium 8.2 mg/dL (8.7-10.3); Carbon Dioxide 27.0 mmol/L (21.6-31.8); Chloride 101 mmol/L (96-109); Globulin 2.4 g/dL (1.6-3.3); Glucose 115 mg/dL (70-110); Potassium 3.5 mmol/L (3.5-5.5); Sodium 137 mmol/L (135-145); Total Protein 5.0 g/dL (6.2-8.2)
[2024-10-22 08:39] LABS: Basophils # (A) 0 X 10*3/uL (0.00-0.10); Basophils % (A) 0 %; Eosinophils # (A) 0 X 10*3/uL (0.04-0.35); Eosinophils % (A) 0 %; HCT 28.4 % (37.2-46.3); HGB 9.1 g/dL (12.0-15.0); Immature Grans, Automated 0.90 %; Immature Platelet Fraction 2.5 % (1.1-6.1); Lymphocytes # (A) 0.08 X 10*3/uL (0.90-5.00); Lymphocytes % (A) 3.8 %; MCH 28.3 pg (27.0-32.0); MCHC 32.0 g/dL (32.0-37.0); MCV 88.5 FL (80.0-97.0); Monocytes # (A) 0.02 X 10*3/uL (0.20-1.00); Monocytes % (A) 0.9 %; NRBC Per 100 WBC 0 X 10*3/uL (0.00-0.01); Neutrophils # (A) 2.00 X 10*3/uL (1.80-7.70); Neutrophils % (A) 94.4 %; Platelet Count 82 X 10*3/uL (140-440); RBC 3.21 X 10*6/uL (4.10-5.20); RDW 20.3 % (11.5-14.5); WBC 2.12 X 10*3/uL (4.50-10.00)
--- NOTE | 2024-10-22 13:28 | P.PN ---
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 Patient currently undergoing radiotherapy. Presents because of abdominal pain nausea vomiting x 4 days associated with constipation. Abdominal pain was 10/10 currently 5/10 felt like sharp periumbilical increase with movement to decrease if she stays still. She did not have bowel movement for the last few days. Passing some gas. She vomited once but no blood was really bolus. She denies chest pain or dyspnea. No urinary complaint. No headache dizziness weakness numbness. She denies smoking alcohol or illicit drugs. Hemodynamically stable. Blood pressure was low on admission 86/53, currently 98/75. Sodium 131, ALT 200 and AST 747 and bilirubin 1.5 rest of CBC, basic metabolic panel were unremarkable. Ultrasound showed mild hydro ureteric nephrosis on the right side. Lobular contour of the liver suspicious for cirrhosis. 10/16 Looks pain control patient is sleepy Patient ate little bit She had little bowel movement Afebrile labs showing WBC 5.4 hemoglobin 9.7 and platelet count is normal at 219. BMP is unremarkable with sodium 133, potassium 3.4 and creatinine 0.7. 10/17 Patient was taking radiotherapy today She states she feels little better today she was able to eat little more. No significant abdominal wall pain Had 1 bowel movement mainly diarrhea Remains on Normosol 50 mL/h Will check liver enzymes still elevated this a.m. will check liver ultrasound and hepatitis panel 10/18 Patient still with abdominal pain and tenderness, she still tolerates some diet. No diarrhea today. No other new complaint. She is little bit more stronger. She is awake alert. I discussed the case with hematology/oncology team plan is to keep her and get her chemotherapy. Most likely patient will be stated over the weekend also Also liver enzymes slightly trending up. Liver ultrasound, CT of the abdomen failed to show acute process. Hepatic Doppler study showing no evidence of portal or hepatic venous thrombosis. Hepatitis panel also was unremarkable. Will continue medication review and monitoring 10/19 Patient remains on full liquid diet No vomiting Her abdominal pain is 6/10 Plan to get chemotherapy with oncology team. Patient is seen over the weekend. Patient aware of the plan and she is agreeable 10/20 Patient is little bit No nausea vomiting Same abdominal pain No bowel movement 10/21 Patient little confused Had an episode of vomiting this morning soft abdomen Getting IV fluid Objective - Vital Signs Vital signs: Vital Signs Temp 97.0 F L 10/21/24 02:00 Pulse 94 10/21/24 07:45 Resp 14 10/21/24 07:45 BP 136/73 10/21/24 07:45 Pulse Ox 95 10/21/24 07:45 FiO2 Intake & Output 10/20/24 10/21/24 10/21/24 18:59 06:59 18:59 Intake Total 1320 950 Balance 1320 950 Intake: Oral 1320 950 Other: Voiding Method Toilet # Voids 5 3 - Exam GENERAL: The patient is alert and oriented x3, not in any acute distress. Well developed, well nourished. HEENT: Pupils are round and equally reacting to light. EOMI. No scleral icterus. No conjunctival pallor. Normocephalic, atraumatic. No pharyngeal erythema. No thyromegaly. CARDIOVASCULAR: S1 and S2 present. No murmurs, rubs, or gallops. PULMONARY: Chest is clear to auscultation, no wheezing , no crackles. -ABDOMEN: Soft, periumbilical tenderness with no guarding or rebound tenderness mildly distended, normoactive bowel sounds. No palpable organomegaly. MUSCULOSKELETAL: No joint swelling or deformity. EXTREMITIES: No cyanosis, clubbing, or pedal edema. NEUROLOGICAL: Gross neurological examination did not reveal any focal deficits. SKIN: No rashes. no petechiae. - Labs CBC & Chem 7: 10/22/24 04:15 10/22/24 04:15 Labs: Abnormal Lab Results - Last 24 Hours (Table) 10/21/24 10/21/24 Range/Units 00:55 00:55 WBC 4.38 L (4.50-10.00) 10*3/uL RBC 3.37 L (4.10-5.20) 10*6/uL Hgb 9.7 L D (12.0-15.0) g/dL Hct 29.3 L (37.2-46.3) % RDW 20.3 H (11.5-14.5) % Plt Count 109 L D (140-440) 10*3/uL Immature Gran # 0.09 H (0.00-0.04) 10*3/uL Lymphocytes # 0.09 L (0.90-5.00) 10*3/uL Monocytes # 0.04 L (0.20-1.00) 10*3/uL Eosinophils # 0.00 L (0.04-0.35) 10*3/uL Sodium 135 L (137-145) mmol/L Carbon Dioxide 31 H (22-30) mmol/L BUN 18 H (7-17) mg/dL Glucose 113 H (74-99) mg/dL Total Bilirubin 4.8 H (0.2-1.3) mg/dL AST 662 H (14-36) U/L ALT 215 H (4-34) U/L Alkaline Phosphatase 2388 H (38-126) U/L Total Protein 5.7 L (6.3-8.2) g/dL Albumin 2.7 L (3.5-5.0) g/dL Assessment and Plan Assessment: Uterine cancer with metastasis to the lung and lymph node Status getting radiotherapy currently Abdominal pain and vomiting and constipation, could be gastroenteritis, radiation enteritis versus bowel obstruction versus other Transaminitis Hypertension related to above Hypovolemic hyponatremia Possible liver cirrhosis Plan: continue with IV hydration Plan for chemotherapy while in house Monitor liver enzymes. No GI service in this facility during this week of service Continue with stool softener Patient may benefit from enema Liver ultrasound and hepatitis panel Hematology/oncology team consult Continue with bowel rest, currently on liquid diet Labs and medication were reviewed.. Continue same treatment. Continue with symptomatic treatment. Resume home medication. Monitor labs and vitals. DVT and GI prophylaxis. Further recommendations as per clinical course of the patient DVT prophylaxis: Subcutaneous heparin GI Prophylaxis: Pepcid PT/OT: Pending Prognosis is guarded
[2024-10-22] MEDS ORDERED: LORazepam 0.5 MG TAB PO PRN (13:40)
--- NOTE | 2024-10-22 14:46 | US ---
EXAMINATION TYPE: US venous doppler duplex UE LT DATE OF EXAM: 10/22/2024 COMPARISON: NONE CLINICAL INDICATION: Female, 63 years old with history of unilateral swelling; swelling, no redness, pt has ca TECHNIQUE: Grayscale, color Doppler and spectral Doppler imaging of the upper extremity. SIDE PERFORMED: Left VESSELS IMAGED: IJV Subclavian Vein Axilla Vein Brachial Vein(s) Radial Paired Veins Ulnar Paired Veins Cephalic Vein*- not seen Basilic Vein* (*superficial vessels) FINDINGS: Left Arm: Negative for DVT. Enlarged lymph nodes seen. Grayscale, color doppler, spectral doppler imaging performed of the deep veins of the upper extremiti es. IMPRESSION: No evidence for DVT. [facility], , 10/22/2024 2:44 PM
--- NOTE | 2024-10-22 17:46 | P.PN ---
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 Pt received chemo last week, no significant changes other then she became very confused. Today she states she does not remember anything about the last few days. She is having a lot of diarrhea. She looks or smells food and wants to vomit. She states that vomiting does happen spontaneously. No fever, cough, bleeding reported. Objective - Vital Signs Vital signs: Vital Signs Temp 97.8 F 10/22/24 12:46 Pulse 95 10/22/24 12:46 Resp 18 10/22/24 12:46 BP 99/66 10/22/24 12:46 Pulse Ox 96 10/22/24 12:46 FiO2 Intake & Output 10/21/24 10/22/24 10/22/24 18:59 06:59 18:59 Intake Total 580 120 Balance 580 120 Weight 70.307 kg Intake: Oral 580 120 Other: Voiding Method Toilet # Voids 4 4 2 # Bowel Movements 4 2 - Constitutional General appearance: Present: average body habitus, cooperative, no acute distress - EENT Eyes: Present: EOMI, scleral icterus (mild) ENT: Present: hearing grossly normal - Neck Neck: Present: lymphadenopathy (feels smaller/softer today) - Respiratory Details: resp unlabored at rest - Cardiovascular Details: skin warm, well perfused - Peripheral edema leg Peripheral Edema: bilateral: None - Neurologic Neurologic: Present: CNII-XII intact - Musculoskeletal Musculoskeletal: Present: generalized weakness, strength equal bilaterally - Psychiatric Psychiatric Comment(s): A&Ox2, flat affect - Labs CBC & Chem 7: 10/22/24 04:15 10/22/24 04:15 Labs: Abnormal Lab Results - Last 24 Hours (Table) 10/20/24 10/22/24 10/22/24 Range/Units 05:23 04:15 04:15 WBC 2.12 L (4.50-10.00) X 10*3/uL RBC 3.21 L (4.10-5.20) X 10*6/uL Hgb 9.1 L (12.0-15.0) g/dL Hct 28.4 L (37.2-46.3) % RDW 20.3 H (11.5-14.5) % Plt Count 82 L (140-440) X 10*3/uL Lymphocytes # 0.08 L (0.90-5.00) X 10*3/uL Monocytes # 0.02 L (0.20-1.00) X 10*3/uL Eosinophils # 0 L (0.04-0.35) X 10*3/uL Promyelocytes # (Man) 0.05 H (0) k/uL BUN/Creatinine Ratio 26.83 H (12.00-20.00) Ratio Glucose 115 H (70-110) mg/dL Calcium 8.2 L (8.7-10.3) mg/dL Total Bilirubin 3.1 H (0.3-1.2) mg/dL AST 615 H (13-35) U/L ALT 181 H (8-44) U/L Alkaline Phosphatase 2270 H (41-126) U/L Total Protein 5.0 L (6.2-8.2) g/dL Albumin 2.6 L (3.8-4.9) g/dL Albumin/Globulin Ratio 1.08 L (1.60-3.17) Ratio - Imaging and Cardiology CT Scan - head: report reviewed Assessment and Plan (1) Intractable vomiting Current Visit: Yes Status: Acute Priority: High Code(s): R11.10 - VOMITING, UNSPECIFIED SNOMED Code(s): 187937047 (2) Constipation Current Visit: Yes Status: Acute Priority: High Code(s): K59.00 - CONSTIPATION, UNSPECIFIED SNOMED Code(s): 20188997 (3) History of cervical cancer Current Visit: Yes Status: Acute Priority: High Code(s): Z85.41 - PERSONAL HISTORY OF MALIGNANT NEOPLASM OF CERVIX UTERI SNOMED Code(s): 537342791 Plan: Intractable vomiting -Pt presenting with intractable vomiting and constipation -likely 2/2 disease in abd, radiation and pain exacerbated from constipation -antiemetic regimen modified, persists. Ativan added for anticipatory nausea -medications to promote BM ordered-pt has had BM. 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 It was felt that pt condition was continuing to decline so, systemic treatment-carbo/taxol- was given. -Pt actually did well overall with treatment. -Cont medications as needed for chemo side effects. -LFTs are trending down, cont to monitor -Pt states she is unable to get to Oncology ENT for evaluation of the abnormal findings in imaging of the neck. Not sure what can be done locally, if anything. Best option would be to start treatment-carbo/taxol/avastin-as the [place] and taxane would potentially have effect on head/neck malignancy. Carbo/taxol will start 10/19. Hoping pt will soon be able to tolerate oral intake and her LFTs stabilize, then she can be discharged Doctor attests: I performed a history and physical examination of this patient, developed impression and plan of care. Discussed with dictator. I agree with dictators note, documented as a scribe.
[2024-10-22] MEDS: POTASSIUM CHLORIDE ER 20 MEQ TAB.ER PO SCH (20:04)
[2024-10-23] MEDS: ONDANSETRON 4 MG/2 ML VIAL IVP PRN (00:26)
[2024-10-23] MEDS: POTASSIUM BICARBONATE/CIT AC 20 MEQ TABLET.EFF NG-TUBE SCH (00:44)
--- NOTE | 2024-10-23 04:59 | P.PN ---
Subjective Progress Note Date: 10/22/24 Patient is a pleasant 63 years old female with past medical history of history of cancers with metastasis to the lung, lymph nodes. Patient currently undergoing radiotherapy. Presents because of abdominal pain nausea vomiting x 4 days associated with constipation. Abdominal pain was 10/10 currently 5/10 felt like sharp periumbilical increase with movement to decrease if she stays still. She did not have bowel movement for the last few days. Passing some gas. She vomited once but no blood was really bolus. She denies chest pain or dyspnea. No urinary complaint. No headache dizziness weakness numbness. She denies smoking alcohol or illicit drugs. Hemodynamically stable. Blood pressure was low on admission 86/53, currently 98/75. Sodium 131, ALT 200 and AST 747 and bilirubin 1.5 rest of CBC, basic metabolic panel were unremarkable. Ultrasound showed mild hydro ureteric nephrosis on the right side. Lobular contour of the liver suspicious for cirrhosis. 10/16 Looks pain control patient is sleepy Patient ate little bit She had little bowel movement Afebrile labs showing WBC 5.4 hemoglobin 9.7 and platelet count is normal at 219. BMP is unremarkable with sodium 133, potassium 3.4 and creatinine 0.7. 10/17 Patient was taking radiotherapy today She states she feels little better today she was able to eat little more. No significant abdominal wall pain Had 1 bowel movement mainly diarrhea Remains on Normosol 50 mL/h Will check liver enzymes still elevated this a.m. will check liver ultrasound and hepatitis panel 10/18 Patient still with abdominal pain and tenderness, she still tolerates some diet. No diarrhea today. No other new complaint. She is little bit more stronger. She is awake alert. I discussed the case with hematology/oncology team plan is to keep her and get her chemotherapy. Most likely patient will be stated over the weekend also Also liver enzymes slightly trending up. Liver ultrasound, CT of the abdomen failed to show acute process. Hepatic Doppler study showing no evidence of portal or hepatic venous thrombosis. Hepatitis panel also was unremarkable. Will continue medication review and monitoring 10/19 Patient remains on full liquid diet No vomiting Her abdominal pain is 610 Plan to get chemotherapy with oncology team. Patient is seen over the weekend. Patient aware of the plan and she is agreeable 10/20 Patient is little bit No nausea vomiting Same abdominal pain No bowel movement 10/22/2024 Patient is seen in follow-up today continuing to have some episodes of nausea and vomiting and intolerance to diet. Diet being adjusted and also being treated with bowel regimen. Patient has issues with constipation although currently having loose stools at this time. Patient also with extensive left upper extremity swelling with previous IV site, there is some pitting and tenderness noted, Doppler being obtained. Encouraged to increase activity as tolerated as patient reports planning on going home. Oncology following along with radiation oncology [facility] patient did receive last treatment of radiation. Will follow-up on labs in the a.m. and if tolerating diet, consider discharge in the next 24 to 48 hours Review of systems: Constitutional: No reports of fatigue, fever, or chills Cardiovascular: No reports of chest pain or palpitations Respiratory: No reports of shortness of breath or cough GI: reports of nausea, occasional vomiting, reports having episodes of diarrhea : No reports of dysuria or retention Neurovascular: reports of generalized weakness All medications have been reviewed Physical exam: GENERAL: The patient is alert and oriented x 2, baseline, not in any acute distress. Well developed, elderly appearing, obese, ill-appearing HEENT: Pupils are round and equally reacting to light. EOMI. No scleral icterus. No conjunctival pallor. Normocephalic, atraumatic. No pharyngeal erythema. No thyromegaly. CARDIOVASCULAR: S1 and S2 muffled PULMONARY: Diminished breath sounds bilaterally otherwise chest is clear to auscultation, no wheezing , no crackles. ABDOMEN: Soft, periumbilical tenderness with no guarding or rebound tenderness mildly distended, normoactive bowel sounds. No palpable organomegaly. MUSCULOSKELETAL: No joint swelling or deformity. EXTREMITIES: No cyanosis, clubbing, or pedal edema. NEUROLOGICAL: Gross neurological examination did not reveal any focal deficits. Diffusely weak SKIN: No rashes. no petechiae. 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 Trending down, likely secondary to chemotherapy Continue bowel regimen and monitor episodes of loose stools now. Hematology/oncology team following continuing supportive care recommending close outpatient follow-up. Continue oral supplements and encouraging oral intake Patient had extensive left upper arm swelling with concerns of DVT, Doppler was negative for DVT If showing improvements in oral intake and liver functions trending down, may consider discharge in the next 24 to 48 hours Overall prognosis is guarded The impression and plan of care has been dictated by Bela Mccollum, Nurse Practitioner as directed. Dr. Yaz MD I have performed a history and examination and MDM of this patient, discussed the same with the dictator, and agree with the dictator's assessment and plan as written ,documented as a scribe. Based on total visit time, I have performed more than 50% of the visit. Objective - Vital Signs Vital signs: Vital Signs Temp 98.2 F 10/22/24 08:06 Pulse 87 10/22/24 08:06 Resp 17 10/22/24 08:06 BP 136/74 10/22/24 08:06 Pulse Ox 95 10/22/24 08:06 FiO2 Intake & Output 10/21/24 10/22/24 10/22/24 18:59 06:59 18:59 Intake Total 580 Balance 580 Intake: Oral 580 Other: Voiding Method Toilet # Voids 4 4 2 # Bowel Movements 4 2 - Labs CBC & Chem 7: 10/22/24 04:15 10/22/24 23:57 Labs: Abnormal Lab Results - Last 24 Hours (Table) 10/22/24 10/22/24 Range/Units 04:15 04:15 WBC 2.12 L (4.50-10.00) X 10*3/uL RBC 3.21 L (4.10-5.20) X 10*6/uL Hgb 9.1 L (12.0-15.0) g/dL Hct 28.4 L (37.2-46.3) % RDW 20.3 H (11.5-14.5) % Plt Count 82 L (140-440) X 10*3/uL Lymphocytes # 0.08 L (0.90-5.00) X 10*3/uL Monocytes # 0.02 L (0.20-1.00) X 10*3/uL Eosinophils # 0 L (0.04-0.35) X 10*3/uL BUN/Creatinine Ratio 26.83 H (12.00-20.00) Ratio Glucose 115 H (70-110) mg/dL Calcium 8.2 L (8.7-10.3) mg/dL Total Bilirubin 3.1 H (0.3-1.2) mg/dL AST 615 H (13-35) U/L ALT 181 H (8-44) U/L Alkaline Phosphatase 2270 H (41-126) U/L Total Protein 5.0 L (6.2-8.2) g/dL Albumin 2.6 L (3.8-4.9) g/dL Albumin/Globulin Ratio 1.08 L (1.60-3.17) Ratio
[2024-10-23 06:00] LABS: ALT 136 U/L (4-34); AST 488 U/L (14-36); African American GFR (CKD) >90 (>60 ml/min/1.73 sqM); Albumin 2.5 g/dL (3.5-5.0); Albumin/Globulin Ratio 0.9; Anion Gap 4 mmol/L; Blood Urea Nitrogen 14 mg/dL (7-17); Calcium 8.2 mg/dL (8.4-10.2); Carbon Dioxide 27 mmol/L (22-30); Chloride 102 mmol/L (98-107); Globulin 2.7 g/dL; Glucose 107 mg/dL (74-99); Magnesium 2.2 mg/dL (1.6-2.3); Non-African American GFR(CKD) >90 (>60 ml/min/1.73 sqM); Potassium 4.2 mmol/L (3.5-5.1); Sodium 133 mmol/L (137-145); Total Protein 5.2 g/dL (6.3-8.2)
[2024-10-23 06:09] LABS: Alkaline Phosphatase 2356 U/L (38-126)
--- NOTE | 2024-10-23 12:52 | P.PN ---
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 Loose stools, N,V persist, nothing improved but not worse. Pt received chemo last week. Liver enzymes are stable. No fever, cough, bleeding reported. Objective - Vital Signs Vital signs: Vital Signs Temp 98.0 F 10/23/24 12:31 Pulse 90 10/23/24 12:31 Resp 14 10/23/24 12:31 BP 153/87 10/23/24 12:31 Pulse Ox 97 10/23/24 12:31 FiO2 Intake & Output 10/22/24 10/23/24 10/23/24 18:59 06:59 18:59 Intake Total 1200 Balance 1200 Weight 70.307 kg Intake: Oral 1200 Other: Voiding Method Toilet Toilet # Voids 5 8 - Constitutional General appearance: Present: average body habitus, cooperative, no acute distress - EENT Eyes: Present: anicteric sclerae, EOMI ENT: Present: hearing grossly normal - Neck Neck: Present: lymphadenopathy - Respiratory Respiratory: bilateral: CTA - Cardiovascular Rhythm: regular Heart sounds: normal: S1, S2 Abnormal Heart Sounds: Absent: systolic murmur, diastolic murmur, rub, S3 Gallop, S4 Gallop, click, other - Peripheral edema leg Peripheral Edema: bilateral: None - Gastrointestinal General gastrointestinal: Present: normal bowel sounds, soft - Neurologic Neurologic: Present: CNII-XII intact - Musculoskeletal Musculoskeletal: Present: strength equal bilaterally - Psychiatric Psychiatric Comment(s): A&Ox3, forgetful, flat affect - Labs CBC & Chem 7: 10/22/24 04:15 10/23/24 04:50 Labs: Abnormal Lab Results - Last 24 Hours (Table) 10/20/24 10/23/24 Range/Units 05:23 04:50 Promyelocytes # (Man) 0.05 H (0) k/uL Sodium 133 L (137-145) mmol/L Creatinine 0.41 L (0.52-1.04) mg/dL Glucose 107 H (74-99) mg/dL Calcium 8.2 L (8.4-10.2) mg/dL Total Bilirubin 3.6 H (0.2-1.3) mg/dL AST 488 H (14-36) U/L ALT 136 H (4-34) U/L Alkaline Phosphatase 2356 H (38-126) U/L Total Protein 5.2 L (6.3-8.2) g/dL Albumin 2.5 L (3.5-5.0) g/dL Assessment and Plan (1) Intractable vomiting Current Visit: Yes Status: Acute Priority: High Code(s): R11.10 - VOMITING, UNSPECIFIED SNOMED Code(s): 374871231 (2) Constipation Current Visit: Yes Status: Acute Priority: High Code(s): K59.00 - CONSTIPATION, UNSPECIFIED SNOMED Code(s): 88121545 (3) History of cervical cancer Current Visit: Yes Status: Acute Priority: High Code(s): Z85.41 - PERSONAL HISTORY OF MALIGNANT NEOPLASM OF CERVIX UTERI SNOMED Code(s): 959085945 Plan: Intractable vomiting -Pt presenting with intractable vomiting and constipation -likely 2/2 disease in abd, radiation and pain exacerbated from constipation -antiemetic regimen modified, persists. Ativan added for anticipatory nausea -medications to promote BM ordered-pt has had BM. Now pt has diarrhea from lactulose Metastatic squamous cell carcinoma of the uterus -New diagnosis, as stated in consult -Pt received palliative radiation for symptoms in the pelvis -Med Onc discussed case last week with Rad Onc. It was felt that pt condition was continuing to decline so, systemic treatment-carbo/taxol- was given. -Pt actually did well overall with treatment. -Cont medications as needed for chemo side effects. -LFTs are trending down, cont to monitor -Pt states she is unable to get to Oncology ENT for evaluation of the abnormal findings in imaging of the neck. Not sure what can be done locally, if anything. Best option would be to start treatment-carbo/taxol/avastin-as the tribe and taxane would potentially have effect on head/neck malignancy. The lt supraclavicular mass is softer then last week Hoping pt will soon be able to tolerate oral intake and her LFTs stabilize, then she can be discharged
[2024-10-23] MEDS: SODIUM CHLORIDE 0.9% 1,000 ML IV SCH (13:27)
--- NOTE | 2024-10-24 06:21 | P.PN ---
Subjective Progress Note Date: 10/23/24 Patient is a pleasant 63 years old female with past medical history of history of cancers with metastasis to the lung, lymph nodes. Patient currently undergoing radiotherapy. Presents because of abdominal pain nausea vomiting x 4 days associated with constipation. Abdominal pain was 10/10 currently 5/10 felt like sharp periumbilical increase with movement to decrease if she stays still. She did not have bowel movement for the last few days. Passing some gas. She vomited once but no blood was really bolus. She denies chest pain or dyspnea. No urinary complaint. No headache dizziness weakness numbness. She denies smoking alcohol or illicit drugs. Hemodynamically stable. Blood pressure was low on admission 86/53, currently 98/75. Sodium 131, ALT 200 and AST 747 and bilirubin 1.5 rest of CBC, basic metabolic panel were unremarkable. Ultrasound showed mild hydro ureteric nephrosis on the right side. Lobular contour of the liver suspicious for cirrhosis. 10/16 Looks pain control patient is sleepy Patient ate little bit She had little bowel movement Afebrile labs showing WBC 5.4 hemoglobin 9.7 and platelet count is normal at 219. BMP is unremarkable with sodium 133, potassium 3.4 and creatinine 0.7. 10/17 Patient was taking radiotherapy today She states she feels little better today she was able to eat little more. No significant abdominal wall pain Had 1 bowel movement mainly diarrhea Remains on Normosol 50 mL/h Will check liver enzymes still elevated this a.m. will check liver ultrasound and hepatitis panel 10/18 Patient still with abdominal pain and tenderness, she still tolerates some diet. No diarrhea today. No other new complaint. She is little bit more stronger. She is awake alert. I discussed the case with hematology/oncology team plan is to keep her and get her chemotherapy. Most likely patient will be stated over the weekend also Also liver enzymes slightly trending up. Liver ultrasound, CT of the abdomen failed to show acute process. Hepatic Doppler study showing no evidence of portal or hepatic venous thrombosis. Hepatitis panel also was unremarkable. Will continue medication review and monitoring 10/19 Patient remains on full liquid diet No vomiting Her abdominal pain is 6 Plan to get chemotherapy with oncology team. Patient is seen over the weekend. Patient aware of the plan and she is agreeable 10/20 Patient is little bit No nausea vomiting Same abdominal pain No bowel movement 10/22/2024 Patient is seen in follow-up today continuing to have some episodes of nausea and vomiting and intolerance to diet. Diet being adjusted and also being treated with bowel regimen. Patient has issues with constipation although currently having loose stools at this time. Patient also with extensive left upper extremity swelling with previous IV site, there is some pitting and tenderness noted, Doppler being obtained. Encouraged to increase activity as tolerated as patient reports planning on going home. Oncology following along with radiation oncology [facility] patient did receive last treatment of radiation. Will follow-up on labs in the a.m. and if tolerating diet, consider discharge in the next 24 to 48 hours 10/23/2024 Patient is seen in follow-up today continuing to have abdominal discomfort and now having multiple episodes of diarrhea. Patient is on full liquids and will increase slowly as tolerated. Adjustments to medications being made regarding bowel regimen and recommend to continue with as needed. Encouraged to increase activity as tolerated as patient appears significantly weak and clinically dry we will add gentle hydration and follow-up on repeat labs. Patient reports plan will be for going home and has a sister that lives nearby that helps. Patient to follow with oncology regarding chemotherapy treatment plan. Review of systems: Constitutional: No reports of fatigue, fever, or chills Cardiovascular: No reports of chest pain or palpitations Respiratory: No reports of shortness of breath or cough GI: reports of nausea, occasional vomiting, reports having episodes of loose stools : No reports of dysuria or retention Neurovascular: reports of generalized weakness All medications have been reviewed Physical exam: GENERAL: The patient is alert and oriented x 2, baseline, not in any acute dis tress. Flat affect well developed, elderly appearing, obese, ill-appearing HEENT: Pupils are round and equally reacting to light. EOMI. No scleral icterus. No conjunctival pallor. Normocephalic, atraumatic. No pharyngeal erythema. No thyromegaly. CARDIOVASCULAR: S1 and S2 muffled PULMONARY: Diminished breath sounds bilaterally otherwise chest is clear to auscultation, no wheezing , no crackles. ABDOMEN: Soft, periumbilical tenderness with no guarding or rebound tenderness mildly distended, normoactive bowel sounds. No palpable organomegaly. MUSCULOSKELETAL: No joint swelling or deformity. EXTREMITIES: No cyanosis, clubbing, or pedal edema. NEUROLOGICAL: Gross neurological examination did not reveal any focal deficits. Diffusely weak SKIN: No rashes. no petechiae. 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 Trending down, likely secondary to chemotherapy Continue bowel regimen and monitor episodes of loose stools now. Make bowel regimen as needed Hematology/oncology team following continuing supportive care recommending close outpatient follow-up. Continue oral supplements and encouraging oral intake Patient had extensive left upper arm swelling with concerns of DVT, Doppler was negative for DVT recommend to elevate frequently If showing improvements in oral intake and liver functions trending down with less frequent episodes of loose stools, may consider discharge in the next 24 hours Encouraged increased activity as tolerated and sitting up out of the bed more frequently Overall prognosis is guarded The impression and plan of care has been dictated by Bela Mccollum, Nurse Practitioner as directed. Dr. Yaz MD I have performed a history and examination and MDM of this patient, discussed the same with the dictator, and agree with the dictator's assessment and plan as written ,documented as a scribe. Based on total visit time, I have performed more than 50% of the visit. Objective - Vital Signs Vital signs: Vital Signs Temp 97.8 F 10/24/24 01:04 Pulse 87 10/24/24 01:04 Resp 16 10/24/24 01:04 BP 156/80 10/24/24 01:04 Pulse Ox 97 10/24/24 01:04 FiO2 Intake & Output 10/23/24 10/23/24 10/24/24 06:59 18:59 06:59 Intake Total 580 Balance 580 Intake: Oral 580 Other: Voiding Method Toilet Toilet Toilet # Voids 8 5 3 # Bowel Movements 3 1 - Labs CBC & Chem 7: 10/22/24 04:15 10/23/24 04:50
[2024-10-24 11:16] LABS: HCT 27.3 % (37.2-46.3); HGB 9.1 g/dL (12.0-15.0); MCH 29.0 pg (27.0-32.0); MCHC 33.3 g/dL (32.0-37.0); MCV 86.9 fL (80.0-97.0); RBC 3.14 10*6/uL (4.10-5.20); RDW 19.2 % (11.5-14.5)
[2024-10-24 11:18] LABS: Platelet Count 46 10*3/uL (140-440)
[2024-10-24 12:08] LABS: Magnesium 1.8 mg/dL (1.5-2.4)
[2024-10-24 12:50] LABS: BUN/Creat Ratio 16.67 Ratio (12.00-20.00); Blood Urea Nitrogen 10.0 mg/dL (9.0-27.0); Glucose 100 mg/dL (70-110)
[2024-10-24 12:51] LABS: ALT 121 U/L (8-44); AST 344 U/L (13-35); Albumin 2.9 g/dL (3.8-4.9); Albumin/Globulin Ratio 1.07 Ratio (1.60-3.17); Alkaline Phosphatase 2310 U/L (41-126); Anion Gap 9.40 mmol/L (4.00-12.00); Calcium 7.9 mg/dL (8.7-10.3); Carbon Dioxide 23.6 mmol/L (21.6-31.8); Chloride 101 mmol/L (96-109); Globulin 2.7 g/dL (1.6-3.3); Potassium 4.3 mmol/L (3.5-5.5); Sodium 134 mmol/L (135-145); Total Protein 5.6 g/dL (6.2-8.2)
--- NOTE | 2024-10-24 15:39 | P.PN ---
Subjective Progress Note Date: 10/24/24 Patient is a pleasant 63 years old female with past medical history of history of cancers with metastasis to the lung, lymph nodes. Patient currently undergoing radiotherapy. Presents because of abdominal pain nausea vomiting x 4 days associated with constipation. Abdominal pain was 10/10 currently 5/10 felt like sharp periumbilical increase with movement to decrease if she stays still. She did not have bowel movement for the last few days. Passing some gas. She vomited once but no blood was really bolus. She denies chest pain or dyspnea. No urinary complaint. No headache dizziness weakness numbness. She denies smoking alcohol or illicit drugs. Hemodynamically stable. Blood pressure was low on admission 86/53, currently 98/75. Sodium 131, ALT 200 and AST 747 and bilirubin 1.5 rest of CBC, basic metabolic panel were unremarkable. Ultrasound showed mild hydro ureteric nephrosis on the right side. Lobular contour of the liver suspicious for cirrhosis. 10/16 Looks pain control patient is sleepy Patient ate little bit She had little bowel movement Afebrile labs showing WBC 5.4 hemoglobin 9.7 and platelet count is normal at 219. BMP is unremarkable with sodium 133, potassium 3.4 and creatinine 0.7. 10/17 Patient was taking radiotherapy today She states she feels little better today she was able to eat little more. No significant abdominal wall pain Had 1 bowel movement mainly diarrhea Remains on Normosol 50 mL/h Will check liver enzymes still elevated this a.m. will check liver ultrasound and hepatitis panel 10/18 Patient still with abdominal pain and tenderness, she still tolerates some diet. No diarrhea today. No other new complaint. She is little bit more stronger. She is awake alert. I discussed the case with hematology/oncology team plan is to keep her and get her chemotherapy. Most likely patient will be stated over the weekend also Also liver enzymes slightly trending up. Liver ultrasound, CT of the abdomen failed to show acute process. Hepatic Doppler study showing no evidence of portal or hepatic venous thrombosis. Hepatitis panel also was unremarkable. Will continue medication review and monitoring 10/19 Patient remains on full liquid diet No vomiting Her abdominal pain is 09/18 Plan to get chemotherapy with oncology team. Patient is seen over the weekend. Patient aware of the plan and she is agreeable 10/20 Patient is little bit No nausea vomiting Same abdominal pain No bowel movement 10/22/2024 Patient is seen in follow-up today continuing to have some episodes of nausea and vomiting and intolerance to diet. Diet being adjusted and also being treated with bowel regimen. Patient has issues with constipation although currently having loose stools at this time. Patient also with extensive left upper extremity swelling with previous IV site, there is some pitting and tenderness noted, Doppler being obtained. Encouraged to increase activity as tolerated as patient reports planning on going home. Oncology following along with radiation oncology hide patient did receive last treatment of radiation. Will follow-up on labs in the a.m. and if tolerating diet, consider discharge in the next 24 to 48 hours 10/23/2024 Patient is seen in follow-up today continuing to have abdominal discomfort and now having multiple episodes of diarrhea. Patient is on full liquids and will increase slowly as tolerated. Adjustments to medications being made regarding bowel regimen and recommend to continue with as needed. Encouraged to increase activity as tolerated as patient appears significantly weak and clinically dry we will add gentle hydration and follow-up on repeat labs. Patient reports plan will be for going home and has a sister that lives nearby that helps. Patient to follow with oncology regarding chemotherapy treatment plan. 10/24/2024 Patient is eval she has been ambulating in the restroom. She continues to report nausea dry heaves and continues with diarrhea. She is also reporting abdominal pain. She is not tolerating diet today her labs reveal a white blood cell count that is too low for lab to count. Hemoglobin is 9.1 her platelet count is 46. Her differential was unable to be determined. Her sodium level is 134, BUN of 10 creatinine of 0.6. Calcium level is 7.9. Review of systems: Constitutional: No reports of fatigue, fever, or chills Cardiovascular: No reports of chest pain or palpitations Respiratory: No reports of shortness of breath or cough GI: reports of nausea, occasional vomiting, reports having episodes of loose stools : No reports of dysuria or retention Neurovascular: reports of generalized weakness All medications have been reviewed Physical exam: GENERAL: The patient is alert and oriented x 2, baseline, not in any acute distress. Flat affect well developed, elderly appearing, obese, ill-appearing HEENT: Pupils are round and equally reacting to light. EOMI. No scleral icterus. No conjunctival pallor. Normocephalic, atraumatic. No pharyngeal erythema. No thyromegaly. CARDIOVASCULAR: S1 and S2 muffled PULMONARY: Diminished breath sounds bilaterally otherwise chest is clear to auscultation, no wheezing , no crackles. ABDOMEN: Soft, periumbilical tenderness with no guarding or rebound tenderness mildly distended, normoactive bowel sounds. No palpable organomegaly. MUSCULOSKELETAL: No joint swelling or deformity. EXTREMITIES: No cyanosis, clubbing, or pedal edema. NEUROLOGICAL: Gross neurological examination did not reveal any focal deficits. Diffusely weak SKIN: No rashes. no petechiae. 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, radiation enteritis History of constipation Left upper extremity swelling, likely secondary to IV infiltration from previous IV site, DVT ruled out on Doppler Transaminitis, being monitored closely and trending down likely secondary to chemotherapy Hypertension related to above, improved Hypovolemic hyponatremia, improving Possible liver cirrhosis Obesity with a BMI of 30.3 GI prophylaxis DVT prophylax Plan: continue with gentle IV hydration Patient received chemotherapy while in house, radiation oncology following as well and received last treatment 10/22/2024 Monitor liver enzymes. Trending down, likely secondary to chemotherapy Continue bowel regimen and monitor episodes of loose stools now. Make bowel regimen as needed Hematology/oncology team following continuing supportive care recommending close outpatient follow-up. Continue oral supplements and encouraging oral intake Patient had extensive left upper arm swelling with concerns of DVT, Doppler was negative for DVT recommend to elevate frequently If showing improvements in oral intake and liver functions trending down with less frequent episodes of loose stools, may consider discharge in the next 24 hours Encouraged increased activity as tolerated and sitting up out of the bed more frequently Overall prognosis is guarded The impression and plan of care has been dictated by Camila Benitez, Nurse Practitioner as directed. Dr. Yaz MD I have performed a history and examination and MDM of this patient, discussed the same with the dictator, and agree with the dictator's assessment and plan as written ,documented as a scribe. Based on total visit time, I have performed more than 50% of the visit. Objective - Vital Signs Vital signs: Vital Signs Temp 98.2 F 10/24/24 13:59 Pulse 90 10/24/24 13:59 Resp 18 10/24/24 13:59 BP 151/84 10/24/24 13:59 Pulse Ox 99 10/24/24 13:59 FiO2 Intake & Output 10/23/24 10/24/24 10/24/24 18:59 06:59 18:59 Intake Total 580 Balance 580 Intake: Oral 580 Other: Voiding Method Toilet Toilet Toilet # Voids 5 10 # Bowel Movements 3 2 - Labs CBC & Chem 7: 10/24/24 09:44 10/24/24 07:58 Labs: Abnormal Lab Results - Last 24 Hours (Table) 10/24/24 10/24/24 Range/Units 07:58 09:44 RBC 3.14 L (4.10-5.20) 10*6/uL Hgb 9.1 L (12.0-15.0) g/dL Hct 27.3 L (37.2-46.3) % RDW 19.2 H (11.5-14.5) % Plt Count 46 L D (140-440) 10*3/uL Sodium 134 L (135-145) mmol/L Calcium 7.9 L (8.7-10.3) mg/dL Total Bilirubin 3.3 H (0.3-1.2) mg/dL AST 344 H (13-35) U/L ALT 121 H (8-44) U/L Alkaline Phosphatase 2310 H (41-126) U/L Total Protein 5.6 L (6.2-8.2) g/dL Albumin 2.9 L (3.8-4.9) g/dL Albumin/Globulin Ratio 1.07 L (1.60-3.17) Ratio Assessment and Plan Time with Patient: Less than 30
[2024-10-24] MEDS ORDERED: ZINC OXIDE PASTE (Z-GUARD) 1 APPLIC TOPICAL PRN (15:48)
[2024-10-24 17:29] LABS: Bacteria,Urine Occasional /hpf; Bilirubin,Urine Negative (Negative); Blood,Urine Moderate (Negative); Color,Urine Light Red; Glucose,Urine (UA) Trace (Negative); Ketones,Urine 1+ (Negative); Leukocyte Esterase,Urine Negative (Negative); Mucus,Urine Rare /hpf; Nitrite,Urine Negative (Negative); PH, Urine 7.5 (5.0-8.0); Protein,Urine Trace (Negative); RBC,Urine >182 /hpf (0-5); Specific Gravity,Urine 1.012 (1.001-1.035); Urobilinogen,Urine <2.0 mg/dL (<2.0); WBC,Urine 4 /hpf (0-5)
[2024-10-24] MEDS: CHOLESTYRAMINE RESIN 4 GM PACKET PO SCH (17:36)
--- NOTE | 2024-10-24 20:00 | P.PN ---
Subjective Progress Note Date: 10/24/24 S/p cycle 1 inpt chemo, carbo/taxol. Tolerated treatment. Pt still having intermittent n/v. Diarrhea secondary to lactulose. LFTs improving. Hgb 9.1, plt 46,000 Objective - Vital Signs Vital signs: Vital Signs Temp 98.8 F 10/24/24 12:06 Pulse 64 10/24/24 12:06 Resp 16 10/24/24 12:06 BP 156/85 10/24/24 12:06 Pulse Ox 99 10/24/24 12:06 FiO2 Intake & Output 10/23/24 10/24/24 10/24/24 18:59 06:59 18:59 Intake Total 580 Balance 580 Intake: Oral 580 Other: Voiding Method Toilet Toilet Toilet # Voids 5 10 # Bowel Movements 3 2 - Constitutional General appearance: Present: average body habitus, no acute distress - EENT Eyes: Present: EOMI ENT: Present: hearing grossly normal - Respiratory Details: breathing is even and unlabored - Cardiovascular Details: skin warm and dry - Integumentary Integumentary: Present: jaundiced - Musculoskeletal Musculoskeletal: Present: generalized weakness - Labs CBC & Chem 7: 10/24/24 09:44 10/24/24 07:58 Labs: Abnormal Lab Results - Last 24 Hours (Table) 10/24/24 10/24/24 Range/Units 07:58 09:44 RBC 3.14 L (4.10-5.20) 10*6/uL Hgb 9.1 L (12.0-15.0) g/dL Hct 27.3 L (37.2-46.3) % RDW 19.2 H (11.5-14.5) % Plt Count 46 L D (140-440) 10*3/uL Sodium 134 L (135-145) mmol/L Calcium 7.9 L (8.7-10.3) mg/dL Total Bilirubin 3.3 H (0.3-1.2) mg/dL AST 344 H (13-35) U/L ALT 121 H (8-44) U/L Alkaline Phosphatase 2310 H (41-126) U/L Total Protein 5.6 L (6.2-8.2) g/dL Albumin 2.9 L (3.8-4.9) g/dL Albumin/Globulin Ratio 1.07 L (1.60-3.17) Ratio Assessment and Plan (1) Abdominal pain Current Visit: Yes Status: Acute Code(s): R10.9 - UNSPECIFIED ABDOMINAL PAIN SNOMED Code(s): 84064297 (2) History of cervical cancer Current Visit: Yes Status: Acute Priority: High Code(s): Z85.41 - PERSONAL HISTORY OF MALIGNANT NEOPLASM OF CERVIX UTERI SNOMED Code(s): 957173908 (3) Intractable vomiting Current Visit: Yes Status: Acute Priority: High Code(s): R11.10 - VOMITING, UNSPECIFIED SNOMED Code(s): 033358270 (4) Transaminitis Current Visit: Yes Status: Acute Code(s): R74.01 - ELEVATION OF LEVELS OF LIVER TRANSAMINASE LEVELS SNOMED Code(s): 471146842 Plan: -Pt presenting with intractable vomiting and constipation -likely 2/2 disease in abd, radiation and pain exacerbated from constipation -antiemetic regimen modified, persists. Ativan added for anticipatory nausea -medications to promote BM ordered-pt has had BM. Now pt has diarrhea secondary to lactulose. Last 3 doses held as pt refused. Diarrhea persisting. 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 It was felt that pt condition was continuing to decline so, systemic treatment-carbo/taxol- was given. -Pt actually did well overall with treatment. -Cont medications as needed for chemo side effects. -LFTs are trending down, cont to monitor -Pt states she is unable to get to Oncology ENT for evaluation of the abnormal findings in imaging of the neck. Not sure what can be done locally, if anything. Best option would be to start treatment-carbo/taxol/avastin-as the [place] and taxane would potentially have effect on head/neck malignancy. The lt supraclavi cular mass is softer then last week Hoping pt will soon be able to tolerate oral intake and her LFTs stabilize, then she can be discharged, with further outpt management/treatment Doctor attests: I performed a history and physical examination of this patient, developed impression and plan of care. Discussed with dictator. I agree with dictators note, documented as a scribe.
[2024-10-25 05:52] LABS: HCT 25.3 % (37.2-46.3); HGB 8.1 g/dL (12.0-15.0); MCH 27.8 pg (27.0-32.0); MCHC 32.0 g/dL (32.0-37.0); MCV 86.9 fL (80.0-97.0); RBC 2.91 10*6/uL (4.10-5.20); RDW 19.2 % (11.5-14.5)
[2024-10-25 06:01] LABS: Platelet Count 11 10*3/uL (140-440); WBC 0.10 10*3/uL (4.50-10.00)
[2024-10-25 06:43] LABS: African American GFR (CKD) >90 (>60 ml/min/1.73 sqM); Anion Gap 9 mmol/L; Blood Urea Nitrogen 11 mg/dL (7-17); Calcium 8.0 mg/dL (8.4-10.2); Carbon Dioxide 20 mmol/L (22-30); Chloride 105 mmol/L (98-107); Glucose 88 mg/dL (74-99); Magnesium 1.6 mg/dL (1.6-2.3); Non-African American GFR(CKD) >90 (>60 ml/min/1.73 sqM); Potassium 3.6 mmol/L (3.5-5.1); Sodium 134 mmol/L (137-145)
[2024-10-25 07:07] VITALS: RESP 16
[2024-10-25] MEDS: ACETAMINOPHEN IV (For NPO) 1,000 MG in EMPTY BAG 1 BAG IVPB PRN (12:24)
[2024-10-25 12:30] VITALS: BP 109/74; PULSE 115; TEMP 97.5
--- NOTE | 2024-10-25 12:40 | CT ---
EXAMINATION TYPE: CT abdomen pelvis w con DATE OF EXAM: 10/25/2024 12:08 PM COMPARISON: 10/14/2024 CLINICAL INDICATION: Female, 63 years old with history of vomiting stool; Vomiting stool, abdominal p ain, hx uterine ca TECHNIQUE: CT of the abdomen and pelvis after IV contrast. Delayed images through the kidneys. Sagitt al and coronal reformats were created on a separate workstation. Contrast used:100 mL of Isovue 300 with IV Contrast, CT DLP: 695.50 mGycm, Automated exposure control for dose reduction was used. FINDINGS: Heart upper limits of normal in size. Numerous pulmonary nodules are redemonstrated. Some of these ar e increased in size currently measuring up to 3.2 cm versus 3.1 cm, previously but with greater degre e of internal hypodensity probably post treatment change. There is increasing patchy bibasilar opacity, confluent at the left base and dependently. Trace left pleural effusion present now. Prominent fluid column within the visualized esophagus. Diffuse hepatic metastases redemonstrated without significant change. Some individual lesions may be smaller. Portal venous system is patent. No biliary ductal dilatation. Gallbladder not seen. Adrenal glands, spleen, and pancreas show no gross abnormalities. Right retrocrural adenopathy measuring up to 1.2 cm, similar. Retroperitoneal adenopathy previously m easuring up to 5.7 cm now measures up to 4.7 cm. Bilateral ureteral stents are present. No excretion of contrast from the kidneys on delayed scan. Prominent fluid-filled small bowel loops throughout the abdomen. Some scattered mucosal hyperemia is present. Moderate generalized anasarca changes with body wall edema and strandy mesenteric edema. Pancolonic circumferential wall thickening, greatest along the hepatic flexure and sigmoid colon as w ell as the rectum. Bladder is urine distended. Bilateral ureteral stents are in place. Bulky uterus with abnormal heterogeneously enhancing internal mass most of which shows hypodensity re demonstrated. Difficult to delineate ovaries. Improving but persistent right iliac chain adenopathy currently measuring up to 3.8 cm versus 4.8 cm, previously. Similar left external iliac chain adenopathy at 2.1 cm. Similar trace pelvic free fluid. Bones: Diffuse heterogeneity of the osseous structures suggesting diffuse osseous metastatic disease. Fixed grade 2 anterolisthesis L5-S1 secondary to degenerative interbody ankylosis. Moderate degenerat ender disc disease lower thoracic and upper lumbar spine. IMPRESSION: 1. New generalized anasarca and trace left pleural effusion. Correlate for third spacing/fluid overl oad. 2. New interstitial changes in the lower lungs and airspace disease at the left base. Consider pulmon lola vascular congestion and/or pneumonia, particularly on the left. 3. Prominent fluid column in the visualized esophagus. Correlate for significant GERD. 4. Known metastatic disease involving retrocrural, retroperitoneal, pelvic nodes as well as multiple pulmonary nodules, diffuse hepatic metastases, and patient's primary uterine cancer. Also, suspect di ffuse osseous metastatic disease. While extensive disease remains, individual hepatic lesions appears slightly smaller. Retroperitoneal adenopathy is also small (for example, now measuring up to 4.7 cm versus 5.7 cm, previously). [facility], , 10/25/2024 12:38 PM
[2024-10-25 14:01] LABS: ALT 58.0 U/L (4-34); AST 154.0 U/L (14-36); Albumin 2.2 g/dL (3.5-5.0); Albumin/Globulin Ratio 0.8; Bilirubin,Unconjugated 1.1 mg/dL (0.0-1.1); Globulin 2.7 g/dL; Total Protein 4.9 g/dL (6.3-8.2)
[2024-10-25 14:09] LABS: NT-Pro-B-Type Natriuretic Pept 4810.0 pg/mL
--- NOTE | 2024-10-25 14:10 | P.PN ---
Subjective Progress Note Date: 10/25/24 Patient is a pleasant 63 years old female with past medical history of history of cancers with metastasis to the lung, lymph nodes. Patient currently undergoing radiotherapy. Presents because of abdominal pain nausea vomiting x 4 days associated with constipation. Abdominal pain was 10/10 currently 5/10 felt like sharp periumbilical increase with movement to decrease if she stays still. She did not have bowel movement for the last few days. Passing some gas. She vomited once but no blood was really bolus. She denies chest pain or dyspnea. No urinary complaint. No headache dizziness weakness numbness. She denies smoking alcohol or illicit drugs. Hemodynamically stable. Blood pressure was low on admission 86/53, currently 98/75. Sodium 131, ALT 200 and AST 747 and bilirubin 1.5 rest of CBC, basic metabolic panel were unremarkable. Ultrasound showed mild hydro ureteric nephrosis on the right side. Lobular contour of the liver suspicious for cirrhosis. 10/16 Looks pain control patient is sleepy Patient ate little bit She had little bowel movement Afebrile labs showing WBC 5.4 hemoglobin 9.7 and platelet count is normal at 219. BMP is unremarkable with sodium 133, potassium 3.4 and creatinine 0.7. 10/17 Patient was taking radiotherapy today She states she feels little better today she was able to eat little more. No significant abdominal wall pain Had 1 bowel movement mainly diarrhea Remains on Normosol 50 mL/h Will check liver enzymes still elevated this a.m. will check liver ultrasound and hepatitis panel 10/18 Patient still with abdominal pain and tenderness, she still tolerates some diet. No diarrhea today. No other new complaint. She is little bit more stronger. She is awake alert. I discussed the case with hematology/oncology team plan is to keep her and get her chemotherapy. Most likely patient will be stated over the weekend also Also liver enzymes slightly trending up. Liver ultrasound, CT of the abdomen failed to show acute process. Hepatic Doppler study showing no evidence of portal or hepatic venous thrombosis. Hepatitis panel also was unremarkable. Will continue medication review and monitoring 10/19 Patient remains on full liquid diet No vomiting Her abdominal pain is 6 Plan to get chemotherapy with oncology team. Patient is seen over the weekend. Patient aware of the plan and she is agreeable 10/20 Patient is little bit No nausea vomiting Same abdominal pain No bowel movement 10/22/2024 Patient is seen in follow-up today continuing to have some episodes of nausea and vomiting and intolerance to diet. Diet being adjusted and also being treated with bowel regimen. Patient has issues with constipation although currently having loose stools at this time. Patient also with extensive left upper extremity swelling with previous IV site, there is some pitting and tenderness noted, Doppler being obtained. Encouraged to increase activity as tolerated as patient reports planning on going home. Oncology following along with radiation oncology hide patient did receive last treatment of radiation. Will follow-up on labs in the a.m. and if tolerating diet, consider discharge in the next 24 to 48 hours 10/23/2024 Patient is seen in follow-up today continuing to have abdominal discomfort and now having multiple episodes of diarrhea. Patient is on full liquids and will increase slowly as tolerated. Adjustments to medications being made regarding bowel regimen and recommend to continue with as needed. Encouraged to increase activity as tolerated as patient appears significantly weak and clinically dry we will add gentle hydration and follow-up on repeat labs. Patient reports plan will be for going home and has a sister that lives nearby that helps. Patient to follow with oncology regarding chemotherapy treatment plan. 10/24/2024 Patient is eval she has been ambulating in the restroom. She continues to report nausea dry heaves and continues with diarrhea. She is also reporting abdominal pain. She is not tolerating diet today her labs reveal a white blood cell count that is too low for lab to count. Hemoglobin is 9.1 her platelet count is 46. Her differential was unable to be determined. Her sodium level is 134, BUN of 10 creatinine of 0.6. Calcium level is 7.9. 10/25/2024 Patient evaluated in follow-up in the medical floor. She continues to report abdominal pain worsening in nature with episodes of emesis this morning. The nurse felt like she had been vomiting stool. There is also concern for vaginal bleeding. Patient does have some degree of urinary retention and indwelling Lord catheter will be inserted. Her abdominal pelvis CT Reveals a new generalized anasarca and trace left pleural effusion correlate for third spacing fluid overload. There is new interstitial changes in the lower lungs and airspace disease at the left base consider pulmonary vascular congestion and/or pneumonia particularly on the left. Prominent fluid, and the visualized esophagus correlate for significant GERD. There is no metastatic disease involving the retrocrural retroperitoneal pelvic nodes as well as multiple pulmonary nodules diffuse hepatic metastasis and patient's primary uterine cancer also suspected diffuse osseous metastatic disease. While extensive disease remains individual hepatic lesions appear slightly smaller. Retroperitoneal adenopathy is also small for example now measuring up to 4.7 cm versus 5.7 cm previously. There is bilateral ureteral stones are present. There is no excretion of contrast in the kidneys on delayed scan. There are prominent fluid-filled small bowel loops throughout the abdomen. Some scattered mucosal hyperemia is present. There is pain colic circumferential wall thickening greatest along the hepatic flexure and sigmoid colon as well as the rectum. Her labs today reveal a white blood cell count of 0.10, hemoglobin 8.1, platelet count of 11, sodium of 134 BUN of 11 creatinine 0.51. Her UA shows hematuria with moderate blood. C. difficile has been negative. Review of systems: Constitutional: No reports of fatigue, fever, or chills Cardiovascular: No reports of chest pain or palpitations Respiratory: No reports of shortness of breath or cough GI: reports of nausea, occasional vomiting, reports having episodes of loose stools : No reports of dysuria or retention Neurovascular: reports of generalized weakness All medications have been reviewed Physical exam: GENERAL: The patient is alert and oriented x 2, baseline, not in any acute distress. Flat affect well developed, elderly appearing, obese, ill-appearing HEENT: Pupils are round and equally reacting to light. EOMI. No scleral icterus. No conjunctival pallor. Normocephalic, atraumatic. No pharyngeal erythema. No thyromegaly. CARDIOVASCULAR: S1 and S2 muffled PULMONARY: Diminished breath sounds bilaterally otherwise chest is clear to auscultation, no wheezing , no crackles. ABDOMEN: Soft, periumbilical tenderness with guarding, hypoactive bowel sounds. No palpable organomegaly. MUSCULOSKELETAL: No joint swelling or deformity. EXTREMITIES: No cyanosis, clubbing, or pedal edema. NEUROLOGICAL: Gross neurological examination did not reveal any focal deficits. Diffusely weak SKIN: No rashes. no petechiae. 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, radiation enteritis History of constipation Left upper extremity swelling, likely secondary to IV infiltration from previous IV site, DVT ruled out on Doppler Transaminitis, being monitored closely and trending down likely secondary to chemotherapy Hypertension related to above, improved Hypovolemic hyponatremia, improving Possible liver cirrhosis Obesity with a BMI of 30.3 GI prophylaxis DVT prophylax Plan: Insert indwelling lord catheter Check BNP continue with gentle IV hydration Patient received chemotherapy while in house, radiation oncology following as well and received last treatment 10/22/2024 Monitor liver enzymes. Trending down, likely secondary to chemotherapy Continue bowel regimen and monitor episodes of loose stools now. Make bowel regimen as needed. Patient with worsening emesis. Abdominal pelvis CT reviewed Hematology/oncology team following continuing supportive care recommending close outpatient follow-up. Continue oral supplements and encouraging oral intake Patient had extensive left upper arm swelling with concerns of DVT, Doppler was negative for DVT recommend to elevate frequently Encouraged increased activity as tolerated and sitting up out of the bed more frequently Overall prognosis is guarded Repeat CMP/CBC in the AM The impression and plan of care has been dictated by Camila Benitez, Nurse Practitioner as directed. Dr. Yaz MD I have performed a history and examination and MDM of this patient, discussed the same with the dictator, and agree with the dictator's assessment and plan as written ,documented as a scribe. Based on total visit time, I have performed more than 50% of the visit. Objective - Vital Signs Vital signs: Vital Signs Temp 97.5 F L 10/25/24 12:29 Pulse 115 H 10/25/24 12:29 Resp 16 10/25/24 12:29 BP 109/74 10/25/24 12:29 Pulse Ox 99 10/25/24 12:29 FiO2 Intake & Output 10/24/24 10/25/24 10/25/24 18:59 06:59 18:59 Intake Total 1260 100 Balance 1260 100 Weight 70.307 kg Intake: Oral 1260 100 Other: Voiding Method Toilet Bedside Commode Bedpan Diaper Incontinent # Voids 2 1 # Bowel Movements 2 - Labs CBC & Chem 7: 10/25/24 05:29 10/25/24 05:29 Labs: Abnormal Lab Results - Last 24 Hours (Table) 10/24/24 10/25/24 10/25/24 Range/Units 16:51 05:29 05:29 WBC 0.10 L* (4.50-10.00) 10*3/uL RBC 2.91 L (4.10-5.20) 10*6/uL Hgb 8.1 L (12.0-15.0) g/dL Hct 25.3 L (37.2-46.3) % RDW 19.2 H (11.5-14.5) % Plt Count 11 L* D (140-440) 10*3/uL Sodium 134 L (137-145) mmol/L Carbon Dioxide 20 L (22-30) mmol/L Creatinine 0.51 L (0.52-1.04) mg/dL Calcium 8.0 L (8.4-10.2) mg/dL Urine Appearance Cloudy H (Clear) Urine Protein Trace H (Negative) Urine Glucose (UA) Trace H (Negative) Urine Ketones 1+ H (Negative) Urine Blood Moderate H (Negative) Urine RBC >182 H (0-5) /hpf Urine Bacteria Occasional H (None) /hpf Urine Mucus Rare H (None) /hpf Assessment and Plan Time with Patient: Greater than 30
[2024-10-25 14:11] LABS: Alkaline Phosphatase 1456.0 U/L (38-126)
[2024-10-25] MEDS: SODIUM CHLORIDE 0.9% 1,000 ML IV ONE (14:17)
[2024-10-25] MEDS: DEXTROSE 5%-0.45% NACL 1,000 ML IV SCH (16:35)
--- NOTE | 2024-10-25 19:35 | P.PN ---
Subjective Progress Note Date: 10/25/24 S/p cycle 1 inpt chemo, carbo/taxol. Tolerated treatment. Pt still having intermittent n/v. Nursing states that there was concern pt was vomiting stool. Diarrhea persisting, c-diff negative. Has been off lactulose x 4 days. Confusion persisting. Obtain ammonia and CT AP. LFTs improving. Hgb 8.1, plt 11,000 Objective - Vital Signs Vital signs: Vital Signs Temp 97.5 F L 10/25/24 12:29 Pulse 115 H 10/25/24 12:29 Resp 16 10/25/24 12:29 BP 109/74 10/25/24 12:29 Pulse Ox 99 10/25/24 12:29 FiO2 Intake & Output 10/24/24 10/25/24 10/25/24 18:59 06:59 18:59 Intake Total 1260 100 Balance 1260 100 Intake: Oral 1260 100 Other: Voiding Method Toilet Bedside Commode Bedpan Diaper Incontinent # Voids 2 1 # Bowel Movements 2 - Constitutional General appearance: Present: no acute distress - EENT Eyes: Present: scleral icterus ENT: Present: hearing grossly normal - Respiratory Details: breathing is even and unlabored - Cardiovascular Details: skin warm and dry - Gastrointestinal General gastrointestinal: Present: soft, tenderness - Integumentary Integumentary: Present: jaundiced - Musculoskeletal Musculoskeletal: Present: generalized weakness - Psychiatric Psychiatric Comment(s): confused - Labs CBC & Chem 7: 10/25/24 05:29 10/25/24 05:29 Labs: Abnormal Lab Results - Last 24 Hours (Table) 10/24/24 10/24/24 10/25/24 Range/Units 07:58 16:51 05:29 WBC 0.10 L* (4.50-10.00) 10*3/uL RBC 2.91 L (4.10-5.20) 10*6/uL Hgb 8.1 L (12.0-15.0) g/dL Hct 25.3 L (37.2-46.3) % RDW 19.2 H (11.5-14.5) % Plt Count 11 L* D (140-440) 10*3/uL Sodium 134 L (135-145) mmol/L Carbon Dioxide (22-30) mmol/L Creatinine (0.52-1.04) mg/dL Calcium 7.9 L (8.7-10.3) mg/dL Total Bilirubin 3.3 H (0.3-1.2) mg/dL AST 344 H (13-35) U/L ALT 121 H (8-44) U/L Alkaline Phosphatase 2310 H (41-126) U/L Total Protein 5.6 L (6.2-8.2) g/dL Albumin 2.9 L (3.8-4.9) g/dL Albumin/Globulin Ratio 1.07 L (1.60-3.17) Ratio Urine Appearance Cloudy H (Clear) Urine Protein Trace H (Negative) Urine Glucose (UA) Trace H (Negative) Urine Ketones 1+ H (Negative) Urine Blood Moderate H (Negative) Urine RBC >182 H (0-5) /hpf Urine Bacteria Occasional H (None) /hpf Urine Mucus Rare H (None) /hpf 10/25/24 Range/Units 05:29 WBC (4.50-10.00) 10*3/uL RBC (4.10-5.20) 10*6/uL Hgb (12.0-15.0) g/dL Hct (37.2-46.3) % RDW (11.5-14.5) % Plt Count (140-440) 10*3/uL Sodium 134 L (135-145) mmol/L Carbon Dioxide 20 L (22-30) mmol/L Creatinine 0.51 L (0.52-1.04) mg/dL Calcium 8.0 L (8.7-10.3) mg/dL Total Bilirubin (0.3-1.2) mg/dL AST (13-35) U/L ALT (8-44) U/L Alkaline Phosphatase (41-126) U/L Total Protein (6.2-8.2) g/dL Albumin (3.8-4.9) g/dL Albumin/Globulin Ratio (1.60-3.17) Ratio Urine Appearance (Clear) Urine Protein (Negative) Urine Glucose (UA) (Negative) Urine Ketones (Negative) Urine Blood (Negative) Urine RBC (0-5) /hpf Urine Bacteria (None) /hpf Urine Mucus (None) /hpf Assessment and Plan (1) Abdominal pain Current Visit: Yes Status: Acute Code(s): R10.9 - UNSPECIFIED ABDOMINAL PAIN SNOMED Code(s): 45064749 (2) History of cervical cancer Current Visit: Yes Status: Acute Priority: High Code(s): Z85.41 - PERSONAL HISTORY OF MALIGNANT NEOPLASM OF CERVIX UTERI SNOMED Code(s): 794454125 (3) Intractable vomiting Current Visit: Yes Status: Acute Priority: High Code(s): R11.10 - VOMITING, UNSPECIFIED SNOMED Code(s): 793891805 (4) Transaminitis Current Visit: Yes Status: Acute Code(s): R74.01 - ELEVATION OF LEVELS OF LIVER TRANSAMINASE LEVELS SNOMED Code(s): 103126117 Plan: -Pt presenting with intractable vomiting and constipation -likely 2/2 disease in abd, radiation and pain exacerbated from constipation -antiemetic regimen modified, persists. Ativan added for anticipatory nausea -medications to promote BM ordered-pt has had BM. Now pt has diarrhea secondary to lactulose. Last 4 doses held as pt refused. Diarrhea persisting. C-diff te sting negative. Ammonia normal today, <9. Lactulose d/c. 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 It was felt that pt condition was continuing to decline so, systemic treatment-carbo/taxol- was given. -Pt actually did well overall with treatment. -Cont medications as needed for chemo side effects. -LFTs are trending down, cont to monitor -Pt states she is unable to get to Oncology ENT for evaluation of the abnormal findings in imaging of the neck. Not sure what can be done locally, if anything. Best option would be to start treatment-carbo/taxol/avastin-as the [place] and taxane would potentially have effect on head/neck malignancy. The lt supraclavicular mass is softer then last week Doctor attests: I performed a history and physical examination of this patient, developed impression and plan of care. Discussed with dictator. I agree with dictators note, documented as a scribe.
[2024-10-25 21:11] LABS: Glucose,Whole Blood 72 mg/dL (70-110)
[2024-10-25] MEDS ORDERED: LORazepam 1 MG/0.5 ML VIAL IV PRN (21:13)
--- NOTE | 2024-10-25 21:25 | P.EN ---
RAPID RESPONSE NOTE DATE/TIME: 10/25/20242099 PATIENT: Sussy Ricci [id number] REASON FOR RAPID CALL: Called overhead by Bedside RN for patient found unresponsive, agonal breathing, and undetectable blood pressure ASSESSMENT & FINDINGS: Patient observed in agonal respirations upon rapid team arrival. Apneic episodes noted. Patient unresponsive to stimuli. Noted to not have a detectable cuff blood pressure. RELEVANT HISTORY: Metastatic Squamous Cell Carcinoma of the Uterus. CRITICAL CODE STATUS UPDATE: Per discussion with Bedside RN, the patient's code status was recently changed from Full Code to DNR/DNI (Do Not Resuscitate/Do Not Intubate). This status was verified as current and documented. ACTIONS TAKEN & COMMUNICATION: Confirmed DNR/DNI Status: Immediate resuscitation efforts (CPR, ACLS) were withheld per verified DNR/DNI order. Family Contact: [facility] [employer] contacted the patient's brother, Ten. Ten confirmed understanding of the patient's condition and decline. Ten explicitly agreed to the implementation of comfort measures only. Ten stated he is en route to the hospital and will arrive momentarily to see the patient. Comfort Measures Initiated: Comfort care orders were immediately placed/activated by the rapid team. Focus shifted to ensuring patient comfort and dignity (e.g., positioning, minimizing disturbances, administering ordered comfort medications like morphine or lorazepam as appropriate). RN Update: Bedside RN was updated in person regarding the plan of care transition to Comfort Measures Only, consistent with the DNR/DNI status and family agreement. Reinforced focus on symptom management and supportive care. DISPOSITION: Patient remains under the care of primary team with comfort measures in place. Brother (Ten) is aware and en route. Rapid response concluded. Care transferred back to primary team/Bedside RN with clear comfort focus plan. SIGNATURE: Twin Ignacio MD
[2024-10-25] MEDS ORDERED: MORPHINE SULFATE 100 MG in SODIUM CHLORIDE 0.9% 90 ML IV SCH (22:00)
== END 2024-10-25 21:32 | disposition expired | DRG 530 ==
LOC: EC 11:46 → 5NMEDONC 15:26
PROVIDERS: ADMIT Hospitalist; ATTEND Hospitalist
PROC: DU0 Radiation Therapy, Female Reproductive System, Beam Radiation (ICD-10-PCS; principal; 2024-10-15)
DX: C53.9 Malignant neoplasm of cervix uteri, unspecified (principal); K59.03 Drug induced constipation; D70.9 Neutropenia, unspecified; K52.0 Gastroenteritis and colitis due to radiation; R13.10 Dysphagia, unspecified; Z51.5 Encounter for palliative care; Z66 Do not resuscitate; K76.89 Other specified diseases of liver; K74.60 Unspecified cirrhosis of liver; I15.8 Other secondary hypertension; E66.9 Obesity, unspecified; T50.995A Adverse effect of other drugs, medicaments and biological substances, initial encounter; I95.9 Hypotension, unspecified; E86.1 Hypovolemia; E87.1 Hypo-osmolality and hyponatremia; Z68.30 Body mass index [BMI] 30.0-30.9, adult; C78.00 Secondary malignant neoplasm of unspecified lung; C78.7 Secondary malignant neoplasm of liver and intrahepatic bile duct; C79.51 Secondary malignant neoplasm of bone; K72.00 Acute and subacute hepatic failure without coma; C77.2 Secondary and unspecified malignant neoplasm of intra-abdominal lymph nodes; C77.5 Secondary and unspecified malignant neoplasm of intrapelvic lymph nodes; N13.30 Unspecified hydronephrosis; T45.1X5A Adverse effect of antineoplastic and immunosuppressive drugs, initial encounter; R06.81 Apnea, not elsewhere classified; Y84.2 Radiological procedure and radiotherapy as the cause of abnormal reaction of the patient, or of later complication, without mention of misadventure at the time of the procedure; Z79.890 Hormone replacement therapy; Z79.891 Long term (current) use of opiate analgesic; Z79.899 Other long term (current) drug therapy
CPT/HCPCS: 36415; 70450; 74018; 74177; 76705; 77336; 77387; 77412; 80048; 80053; 80074; 80076; 81001; 82140; 83735; 83880; 84132; 85025; 85610; 85730; 87086; 87324; 93976